=== PATIENT | male | born 1960 | race African-American/Black ===

== ENCOUNTER 2017-02-01 19:20 | Emergency (ER) | payer SELFPAY ==
[2017-02-01 20:25] VITALS: BP 115/72
== END 2017-02-01 21:20 | disposition left against medical advice (07) ==
LOC: ER 19:20
DX: Z53.21 Procedure and treatment not carried out due to patient leaving prior to being seen by health care provider (principal)

== ENCOUNTER → 2017-02-13 | Outpatient (CLI) | payer SELFPAY ==
--- NOTE | 2017-02-13 11:45 | RADIOLOGY REPORT (SQ) ---
EXAM DESCRIPTION: CT CHEST WITH; CT ABDOMEN WITH IV ORAL CONT COMPLETED DATE/TIME: 02/13/2017 11:20 am REASON FOR STUDY: UNINTENTIONAL WEIGHT LOSS, ABN CXR, ELEVATED SED RATE COMPARISON: CT angio chest 12/18/2015, 02/11/2010 CONTRAST TYPE AND DOSE: contrast/concentration: Isovue 370.00 mg/ml; Total Contrast Delivered: 57.0 ml; Total Saline Delivered: 65.0 ml RENAL FUNCTION: Creatinine 0.81 TECHNIQUE: CT scan of the chest performed using helical scanning technique with dynamic intravenous contrast injection. Images reviewed with lung, soft tissue and bone windows. Reconstructed coronal a nd sagittal MPR images reviewed. All images stored on PACS. CT scan of the abdomen performed with intravenous and with oral contrastusing helical scanning techni que with dynamic intravenous contrast injection. Images reviewed with lung, soft tissue and bone win dows. Reconstructed coronal and sagittal MPR images reviewed. Delayed images for evaluation of the urinary system also acquired and evaluated. All images stored on PACS. All CT scanners at this facility use dose modulation, iterative reconstruction, and/or weight based d osing when appropriate to reduce radiation dose to as low as reasonably achievable (ALARA). [facility]: Dose Right [facility]: CareDose [facility]: Dose Right [facility]: Teradose 4D [facility]: [employer] RADIATION DOSE: Up-to-date CT equipment and radiation dose reduction techniques were employed. CTDIv ol: 4.4 - 4.8 mGy. DLP: 473 mGy-cm. . LIMITATIONS: None. FINDINGS: CHEST: LUNGS AND PLEURA: There are multiple enlarged airspaces around the periphery of both lung apices, and along the mediastinal surface of both lungs, stable. Diffuse bronchiectasis, stable. There is bandlike scarring or atelectasis along the right anterior minor fissure which is slightly mo re prominent than on 12/18/2015. There is new airspace disease in the medial left lung base just above the hemidiaphragm. No pleural effusions. No pneumothorax. HILAR AND MEDIASTINAL STRUCTURES: No identified masses or abnormal nodes. HEART AND VASCULAR STRUCTURES: No aneurysm or dissection. No central pulmonary emboli. No pericardi al effusion. Very dense atherosclerotic arterial vascular calcification along the LAD versus coronar y stent, axial image 77 HARDWARE: None. THYROID AND OTHER SOFT TISSUES: No masses. No adenopathy. BONES: No significant finding. OTHER: No other significant finding. ABDOMEN AND PELVIS: LIVER: Normal size. No masses or dilated ducts. SPLEEN: Normal size. No focal lesions. PANCREAS: No masses. No significant calcifications. No adjacent inflammation or peripancreatic fluid collections. Pancreatic duct not dilated. GALLBLADDER: No identified stones by CT criteria. No inflammatory changes to suggest cholecystitis. ADRENAL GLANDS: No significant masses or asymmetry. RIGHT KIDNEY AND URETER: No solid masses. No significant calcification. No hydronephrosis or hydroure ter. LEFT KIDNEY AND URETER: No solid masses. No significant calcification. No hydronephrosis or hydrouret er. AORTA AND VESSELS: No aneurysm. No dissection. Renal arteries, SMA, celiac without stenosis. RETROPERITONEUM: No retroperitoneal adenopathy, hemorrhage or masses. BOWEL AND PERITONEAL CAVITY: No masses or inflammatory changes. No free fluid or peritoneal masses. APPENDIX: Not in the field of view ABDOMINAL WALL: No masses. No hernias. BONES: No significant or acute findings. IMPRESSION: Bulla or blebs with bronchiectasis. Bandlike scarring right middle lobe slightly more prominent than on previous CT chest 12/18/2015. New airspace disease in the left lung base just above the hemidiaphragm No acute findings in the abdomen TECHNICAL DOCUMENTATION: JOB ID: [id number] Quality ID # [id number]: Final reports with documentation of one or more dose reduction techniques (e.g., Au tomated exposure control, adjustment of the mA and/or kV according to patient size, use of iterative reconstruction technique) 2010 [employer] All Rights Reserved
== END ==
LOC: RAD 08:24
PROVIDERS: ATTEND Physician Assistant
DX: R63.4 Abnormal weight loss (principal); J47.9 Bronchiectasis, uncomplicated
CPT/HCPCS: 71260; 74160

== ENCOUNTER 2017-03-13 08:40 | Day surgery (SDC) | payer OTHER ==
[~2017-03-13 08:40] MED LIST: DIPHENHYDRAMINE HCL 50 MG/ML VIAL ONE; EPINEPHRINE INJ 1 MG/10 ML DISP.SYRIN ONE; FENTANYL CITRATE INJ/PF 100 MCG/2 ML AMPUL ONE; FLUMAZENIL INJ 0.5 MG/5 ML VIAL IV ONE; GLUCAGON,HUMAN RECOMB 1 MG INJ ONE; NALOXONE HCL INJ/PF 0.4 MG/1 ML SDV ONE; ONDANSETRON HCL INJ/PF 4 MG/2 ML SDV ONE
[2017-03-13] MEDS: MIDAZOLAM 2 MG/2 ML INJ ONE ×2 (09:40→09:43)
--- NOTE | 2017-03-13 10:08 | Operative Report ---
Operative Report DATE OF SURGERY: 03/13/17 Operative Report: The risks, benefits and alternatives of the procedure including risks of bleeding, perforation requiring surgery are explained to the patient detail and informed consent was obtained. Patient was taken back to the endoscopy suite and placed in the left, lateral decubital position. A rectal examination was done which did not reveal any masses, tears or fissures. Timeout was called. Conscious sedation medications are provided. The scope was then carefully guided all the way to the cecum. The cecum was identified by the usual anatomical landmarks of the ileocecal valve as well as the appendiceal office. Photodocumentation was obtained. The scope was then sequentially pulled back via the various segments of the colon including the ascending colon, hepatic flexure, transverse colon, splenic flexure, descending colon and finding to the rectosigmoid portions of the colon. Retroflexion maneuver is performed. Prep is good. The risks benefits and alternatives of the procedure explained to the patient in detail and informed consent is obtained.A GIF Olympus video scope was inserted into the patient's mouth and hypopharynx ,the esophagus is identified intubated and insufflated, the scope was then advanced through the esophagus stomach and duodenum, retroflexion maneuver is done ,the esophagus stomach and first and second portions of the duodenum examined PREOPERATIVE DIAGNOSIS: Weight loss. Dysphagia. Heme positive stools POSTOPERATIVE DIAGNOSIS: Esophagitis. Gastritis. Duodenitis. Random biopsies obtained on the right side of the colon. Internal hemorrhoids OPERATION: Colonoscopy with biopsy. EGD with biopsy SURGEON: DENILSON JOHN ANESTHESIA: Moderate Sedation - 4 mg of Versed, 50 mcg of fentanyl. Conscious sedation monitoring time 30 minutes. TISSUE REMOVED OR ALTERED: As described above. COMPLICATIONS: None. ESTIMATED BLOOD LOSS: None. INTRAOPERATIVE FINDINGS: As described above. PROCEDURE: Patient tolerated procedure well. No immediate postprocedure complications are noted. Patient discharged in good condition. Discharge date 03/13/2017. Discharge diet: Regular. Discharge activity: Regular. 2-3 week follow-up to discuss findings. Patient is instructed to call the office or proceed to the emergency room should there be any further problems or questions. We will wait on pathology. 7-10 year surveillance colonoscopy.
[2017-03-13 11:00] VITALS: BP 109/66
== END 2017-03-13 11:00 | disposition home or self-care (01) ==
LOC: END 08:40
PROVIDERS: ATTEND Internal Medicine Gastroenterology
PROC: 0DB68ZX Excision of Stomach, Via Natural or Artificial Opening Endoscopic, Diagnostic (ICD-10-PCS; principal; 2017-03-13 09:30)
PROC: 0DBF8ZX Excision of Right Large Intestine, Via Natural or Artificial Opening Endoscopic, Diagnostic (ICD-10-PCS; 2017-03-13 09:30)
DX: K29.70 Gastritis, unspecified, without bleeding (principal); K29.80 Duodenitis without bleeding; K20.9 Esophagitis, unspecified; K64.8 Other hemorrhoids; F17.210 Nicotine dependence, cigarettes, uncomplicated; R63.4 Abnormal weight loss; Z96.649 Presence of unspecified artificial hip joint; Z68.1 Body mass index [BMI] 19.9 or less, adult
CPT/HCPCS: 43239; 45380; 88342 ×2; 88305 ×2; J2250; J3010; J0171; J1200; J1610; J2310; J2405; J3490

== ENCOUNTER 2017-04-17 08:28 | Day surgery (SDC) | payer OTHER ==
[~2017-04-17 08:28] MED LIST changes: -FLUMAZENIL INJ 0.5 MG/5 ML VIAL IV ONE; +FLUMAZENIL INJ 0.5 MG/5 ML VIAL ONE; +MIDAZOLAM 2 MG/2 ML INJ ONE
--- NOTE | 2017-04-17 09:19 | Operative Report ---
Operative Report DATE OF SURGERY: 04/17/17 Operative Report: The risks benefits and alternatives of the procedure explained to the patient in detail and informed consent is obtained.A GIF Olympus video scope was inserted into the patient's mouth and hypopharynx, the esophagus is identified intubated and insufflated, the scope was then advanced through the esophagus stomach and duodenum, retroflexion maneuver is done, the esophagus stomach and first and second portions of the duodenum examined PREOPERATIVE DIAGNOSIS: Follow-up on distal esophageal lesion as noted on previous upper endoscopy POSTOPERATIVE DIAGNOSIS: Distal esophageal lesion has resolved, therefore suspect previous site of bleed. Gastritis improved. Repeat biopsies obtained to rule out Helicobacter pylori OPERATION: EGD with biopsy SURGEON: DENILSON JOHN ANESTHESIA: Moderate Sedation - 2 mg of Versed, 50 mcg of fentanyl. Conscious sedation monitoring time 30 minutes. TISSUE REMOVED OR ALTERED: Gastric specimen obtained to rule out Helicobacter pylori COMPLICATIONS: None. ESTIMATED BLOOD LOSS: None. INTRAOPERATIVE FINDINGS: As noted above. PROCEDURE: Patient tolerated the procedure well. No immediate postprocedure complications are noted. Patient discharged in good condition. Discharge date 04/17/2017. Discharge diet: Regular. Discharge activity: Regular. 2-3 week follow-up to discuss findings. Patient is instructed to call the office or proceed to the emergency room should there be any further problems or questions. We will wait on biopsies.
[2017-04-17 11:10] VITALS: BP 117/75
== END 2017-04-17 10:25 | disposition home or self-care (01) ==
LOC: END 08:28
PROVIDERS: ATTEND Internal Medicine Gastroenterology
PROC: 0DB68ZX Excision of Stomach, Via Natural or Artificial Opening Endoscopic, Diagnostic (ICD-10-PCS; principal; 2017-04-17 09:00)
DX: K29.50 Unspecified chronic gastritis without bleeding (principal); Z09 Encounter for follow-up examination after completed treatment for conditions other than malignant neoplasm; Z87.19 Personal history of other diseases of the digestive system; D50.9 Iron deficiency anemia, unspecified; R63.4 Abnormal weight loss; Z68.23 Body mass index [BMI] 23.0-23.9, adult; F17.210 Nicotine dependence, cigarettes, uncomplicated; J96.10 Chronic respiratory failure, unspecified whether with hypoxia or hypercapnia; F10.20 Alcohol dependence, uncomplicated; K92.1 Melena
CPT/HCPCS: 43239; 88342 ×2; 88305 ×2; J2250; J3010; J0171; J1200; J1610; J2310; J2405; J3490

== ENCOUNTER → 2017-09-26 | Outpatient (CLI) | payer MEDICAID ==
--- NOTE | 2017-09-26 09:38 | RADIOLOGY REPORT (SQ) ---
EXAM DESCRIPTION: CHEST PA/LATERAL COMPLETED DATE/TIME: 09/26/2017 9:01 am REASON FOR STUDY: COPD W (ACUTE) EXACERBATION,ABNORMAL WEIGHT LOSS COMPARISON: 12/18/2015 EXAM PARAMETERS: NUMBER OF VIEWS: two views TECHNIQUE: Digital Frontal and Lateral radiographic views of the chest acquired. RADIATION DOSE: NA LIMITATIONS: none FINDINGS: LUNGS AND PLEURA: There is hyperexpansion. No consolidation or effusions. Perihilar reilly ings are prominent but unchanged. MEDIASTINUM AND HILAR STRUCTURES: No masses or contour abnormalities. HEART AND VASCULAR STRUCTURES: Heart normal size. No evidence for failure. BONES: No acute findings. HARDWARE: None in the chest. OTHER: No other significant finding. IMPRESSION: COPD with chronic interstitial changes most marked in the perihilar distribution. No ac che[place]nak findings. TECHNICAL DOCUMENTATION: JOB ID: [id number] [employer]- All Rights Reserved
== END ==
LOC: OD 08:46
PROVIDERS: ATTEND Family Medicine
DX: J44.1 Chronic obstructive pulmonary disease with (acute) exacerbation (principal); R63.4 Abnormal weight loss
CPT/HCPCS: 71046

== ENCOUNTER 2017-11-18 10:04 | Emergency (ER) | payer MEDICAID, OTHER ==
[2017-11-18] MEDS ORDERED: IPRATROPIUM/ALBUTEROL 0.5-2.5 MG/3 ML AMPUL NEB ONE (10:19)
[2017-11-18] MEDS ORDERED: NORMAL SALINE 1000 ML 1,000 ML IV ONE ×2 (10:19→12:14)
[2017-11-18] MEDS ORDERED: ALBUTEROL SULFATE 0.083% NEB 2.5 MG/3 ML AMPUL NEB ONE (10:19)
[2017-11-18] MEDS ORDERED: ASPIRIN 81 MG TABLET, CHEWABLE PO ONE (10:19)
--- NOTE | 2017-11-18 10:21 | ER Document Report ---
ED Medical Screen (RME) - General Chief Complaint: Flu Symptoms Stated Complaint: BODY ACHES Time Seen by Provider: 11/18/17 10:20 TRAVEL OUTSIDE OF THE [place] IN LAST 30 DAYS: No - HPI Notes: 11/18/17 10:20 Patient with history of COPD coming in for cough feeling unwell chest pain coughing states now his coughing up some sputum. No recent travel no recent incarceration. - Related Data Allergies/Adverse Reactions: Penicillins Allergy (Unknown, Verified 11/18/17 10:06) shrimp Allergy (Verified 11/18/17 10:06) strawberry Allergy (Verified 11/18/17 10:06) Past Medical History - Social History Chew tobacco use (# tins/day): No Frequency of alcohol use: Rare Drug Abuse: None - Past Medical History Cardiac Medical History: Denies: Hx Coronary Artery Disease, Hx Heart Attack, Hx Hypertension Pulmonary Medical History: Reports: Hx Asthma, Hx Bronchitis, Hx COPD, Hx Pneumonia - SEVERAL TIMES Neurological Medical History: Denies: Hx Cerebrovascular Accident, Hx Seizures Renal/ Medical History: Denies: Hx Peritoneal Dialysis Musculoskeltal Medical History: Denies Hx Arthritis Past Surgical History: Reports: Hx Orthopedic Surgery - right hip replacement - Immunizations Immunizations up to date: No Hx Diphtheria, Pertussis, Tetanus Vaccination: Yes Review of Systems - Review of Systems Respiratory: Cough Physical Exam - Vital signs Vitals: Temp Pulse Resp BP Pulse Ox 99.0 F 108 H 17 117/72 94 11/18/17 10:10 11/18/17 10:10 11/18/17 10:10 11/18/17 10:10 11/18/17 10:10 - Respiratory Breath sounds: Wheezing Course - Re-evaluation Re-evalutation: 11/18/17 10:21 I have greeted and performed a rapid initial assessment of this patient. A comprehensive ED assessment and evaluation of the patient, analysis of test results and completion of the medical decision making process will be conducted by additional ED providers. - Vital Signs Vital signs: Temp Pulse Resp BP Pulse Ox 99.0 F 108 H 17 117/72 94 11/18/17 10:10 11/18/17 10:10 11/18/17 10:10 11/18/17 10:10 11/18/17 10:10
[2017-11-18 10:44] LABS: ABSOLUTE LYMPHOCYTES (AUTO) 1.2 10^3/uL (0.5-4.7); ABSOLUTE MONOCYTES (AUTO) 0.3 10^3/uL (0.1-1.4); ABSOLUTE NEUT (AUTO) 1.8 10^3/uL (1.7-8.2); BASOPHILS % (AUTO) 1.4 % (0-2); EOSINOPHILS % (AUTO) 0.2 % (0-6); HEMATOCRIT 41.7 % (37.9-51.0); HEMOGLOBIN 14.1 g/dL (13.5-17.0); LYMPHOCYTES % (AUTO) 37.4 % (13-45); MEAN CORPUSCULAR HEMOGLOBIN 34.2 pg (27.0-33.4); MEAN CORPUSCULAR HGB CONC 33.7 g/dL (32.0-36.0); MEAN CORPUSCULAR VOLUME 101 fl (80-97); MONOCYTES % (AUTO) 8.2 % (3-13); PLATELET COUNT 127 10^3/uL (150-450); RED BLOOD COUNT 4.11 10^6/uL (4.35-5.55); RED CELL DISTRIBUTION WIDTH 12.5 % (11.5-14.0); SEGMENTED NEUTROPHILS % (AUTO) 52.8 % (42-78); TOTAL CELLS COUNTED % (AUTO) 100 %; WHITE BLOOD COUNT 3.3 10^3/uL (4.0-10.5)
[2017-11-18 10:50] LABS: INTERNATIONAL RATION (INR) 1.05; PROTHROMBIN TIME 14.4 SEC (11.4-15.4)
[2017-11-18 11:06] LABS: ALANINE AMINOTRANSFERASE 36 U/L (21-72); ALBUMIN 4.2 g/dL (3.5-5.0); ALKALINE PHOSPHATASE 104 U/L (38-126); ANION GAP 12 (5-19); ASPARTATE AMINO TRANSFERASE 61 U/L (17-59); BILIRUBIN,DIRECT 0.2 mg/dL (0.0-0.4); BILIRUBIN,TOTAL 0.4 mg/dL (0.2-1.3); BLOOD UREA NITROGEN 9 mg/dL (7-20); CALCIUM 9.1 mg/dL (8.4-10.2); CARBON DIOXIDE 26 mmol/L (22-30); CHLORIDE 99 mmol/L (98-107); CREATINE KINASE 160 U/L (55-170); GLUCOSE 100 mg/dL (75-110); POTASSIUM 4.4 mmol/L (3.6-5.0); SODIUM 136.9 mmol/L (137-145); TOTAL PROTEIN 8.3 g/dL (6.3-8.2)
[2017-11-18 11:17] LABS: TROPONIN I 0.015 ng/mL
[2017-11-18 11:18] LABS: CREATINE KINASE MB < 0.22 ng/mL (<4.55)
--- NOTE | 2017-11-18 11:21 | ER Document Report ---
ED General - General Chief Complaint: Flu Symptoms Stated Complaint: BODY ACHES Time Seen by Provider: 11/18/17 10:20 Mode of Arrival: Ambulatory Information source: Patient, Relative Notes: 56-year-old male with a history of COPD, asthma, bronchitis, tobacco use presents with complaint of fever, chills, cough and hemoptysis. States he has had a constant productive cough for 5 days. He states he has had 2 episodes of coughing up blood. He has not measured his temperature but states that he feels chilled. He is complaining of myalgias. Patient has tried over-the- counter cough medicine without relief. TRAVEL OUTSIDE OF THE [place] IN LAST 30 DAYS: No - HPI Onset: Last week Onset/Duration: Gradual Quality of pain: Achy Associated symptoms: Body/muscle aches, Productive cough, Fever, Shortness of breath. denies: Chest pain, Nausea, Vomiting Exacerbated by: Coughing Relieved by: Denies - Related Data Allergies/Adverse Reactions: Penicillins Allergy (Unknown, Verified 11/18/17 10:06) shrimp Allergy (Verified 11/18/17 10:06) strawberry Allergy (Verified 11/18/17 10:06) Past Medical History - General Information source: Patient - Social History Smoking Status: Current Every Day Smoker Chew tobacco use (# tins/day): No Frequency of alcohol use: Rare Drug Abuse: None Lives with: Family Family History: Reviewed & Not Pertinent Patient has suicidal ideation: No Patient has homicidal ideation: No - Past Medical History Cardiac Medical History: Denies: Hx Coronary Artery Disease, Hx Heart Attack, Hx Hypertension Pulmonary Medical History: Reports: Hx Asthma, Hx Bronchitis, Hx COPD, Hx Pneumonia - SEVERAL TIMES Neurological Medical History: Denies: Hx Cerebrovascular Accident, Hx Seizures Renal/ Medical History: Denies: Hx Peritoneal Dialysis Musculoskeltal Medical History: Denies Hx Arthritis Past Surgical History: Reports: Hx Orthopedic Surgery - right hip replacement - Immunizations Immunizations up to date: No Hx Diphtheria, Pertussis, Tetanus Vaccination: Yes Review of Systems - Review of Systems Constitutional: Fever - Subjective, Malaise EENT: denies: Blurred vision Cardiovascular: denies: Chest pain, Palpitations Respiratory: Cough, Short of breath, Wheezing Gastrointestinal: denies: Abdominal pain Genitourinary: denies: Dysuria Musculoskeletal: denies: Back pain Skin: No symptoms reported Hematologic/Lymphatic: No symptoms reported Neurological/Psychological: denies: Confusion, Weakness Physical Exam - Vital signs Vitals: Temp Pulse Resp BP Pulse Ox 99.0 F 108 H 17 117/72 94 11/18/17 10:10 11/18/17 10:10 11/18/17 10:10 11/18/17 10:10 11/18/17 10:10 Interpretation: Normal, Tachycardic. No: Hypoxic, Febrile - General General appearance: Appears well, Alert In distress: None - HEENT Head: Normocephalic, Atraumatic Eyes: Normal Extraocular movements intact: Yes Pupils: PERRL Sinus: Normal Nasal: Normal Mouth/Lips: Normal Mucous membranes: Normal Pharynx: Normal. No: Blood in hypopharynx Neck: Normal - Respiratory Respiratory status: No respiratory distress Chest status: Nontender Breath sounds: Decreased air movement, Productive cough, Wheezing Chest palpation: Normal - Cardiovascular Rhythm: Regular, Tachycardia Heart sounds: Normal auscultation Murmur: No Pulses: Normal: Radial, Dorsalis pedis Normal capillary refill: Yes - Abdominal Inspection: Normal Distension: No distension Bowel sounds: Normal Tenderness: Nontender Organomegaly: No organomegaly - Back Back: Normal, Nontender. No: CVA tenderness - Extremities General upper extremity: Normal inspection, Nontender, Normal color, Normal ROM , Normal temperature. No: Edema General lower extremity: Normal inspection, Nontender, Normal color, Normal ROM , Normal temperature, Normal weight bearing. No: Edema, Grace's sign Calf: Nontender. 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, Dorsiflexion, Plantar flexion Sensory: Normal - Psychological Associated symptoms: Normal affect, Normal mood - Skin Skin Temperature: Warm Skin Moisture: Dry Skin Color: Normal Course - Re-evaluation Re-evalutation: Laboratory 11/18/17 11/18/17 11/18/17 10:30 10:30 10:30 WBC 3.3 L RBC 4.11 L Hgb 14.1 Hct 41.7 MCV 101 H MCH 34.2 H MCHC 33.7 RDW 12.5 Plt Count 127 L Seg Neutrophils % 52.8 Lymphocytes % 37.4 Monocytes % 8.2 Eosinophils % 0.2 Basophils % 1.4 Absolute Neutrophils 1.8 Absolute Lymphocytes 1.2 Absolute Monocytes 0.3 Absolute Eosinophils 0.0 Absolute Basophils 0.0 PT 14.4 INR 1.05 APTT 40.8 H Sodium 136.9 L Potassium 4.4 Chloride 99 Carbon Dioxide 26 Anion Gap 12 BUN 9 Creatinine 0.87 Est GFR ( Amer) > 60 Est GFR (Non-Af Amer) > 60 Glucose 100 Calcium 9.1 Magnesium 1.5 L Total Bilirubin 0.4 Direct Bilirubin 0.2 Neonat Total Bilirubin Not Reportable Neonat Direct Bilirubin Not Reportable Neonat Indirect Bili Not Reportable AST 61 H ALT 36 Alkaline Phosphatase 104 Creatine Kinase 160 CK-MB (CK-2) Troponin I Total Protein 8.3 H Albumin 4.2 11/18/17 11/18/17 10:30 10:30 WBC RBC Hgb Hct MCV MCH MCHC RDW Plt Count Seg Neutrophils % Lymphocytes % Monocytes % Eosinophils % Basophils % Absolute Neutrophils Absolute Lymphocytes Absolute Monocytes Absolute Eosinophils Absolute Basophils PT Cancelled INR Cancelled APTT Cancelled Sodium Potassium Chloride Carbon Dioxide Anion Gap BUN Creatinine Est GFR ( Amer) Est GFR (Non-Af Amer) Glucose Calcium Magnesium Total Bilirubin Direct Bilirubin Neonat Total Bilirubin Neonat Direct Bilirubin Neonat Indirect Bili AST ALT Alkaline Phosphatase Creatine Kinase CK-MB (CK-2) < 0.22 Troponin I 0.015 Total Protein Albumin Chest X-Ray 11/18/17 10:19 IMPRESSION: Obstructive lung disease. No acute findings 11/18/17 13:36 on re-evaluation patient states he is feeling better. Wheezing has resolved. Heart rate has improved. He was ambulated on pulse ox and maintain 96%. Patient and family are comfortable with discharge home. I spoke to patient at length regarding smoking cessation. 11/20/17 03:17 57-year-old male with a history of COPD who continues to use tobacco presents with complaint of cough, fever, shortness of breath and hemoptysis. Patient states that he is experienced 2 episodes of coughing up blood. Describes blood tinged sputum. He has not had any episodes today, or during his ED course. He describes myalgias and subjective fever that are not relieved with over-the- counter cough medication. He denies any history of HIV, incarceration, TB. Upon exam patient has diffuse wheezing which resolved after breathing treatments. He has no evidence of DVT. Heart rate which is initially tachycardic also improved prior to discharge. Chest x-ray does not show any obvious pneumonia but patient does have a history of COPD and reports increased sputum production so he was placed on doxycycline. during his ED course he received IV fluids, albuterol, Solu-Medrol, doxycycline. CBC without leukocytosis or anemia. CMP shows no electrolyte abnormalities. Cardiac enzymes are within normal limits. He was provided an albuterol MDI. Smoking cessation was strongly advised. Did discuss observation with the patient to assure that there is no further hemoptysis but patient states he is feeling better and is requesting discharge home. Family is at the bedside and are comfortable with discharge home. - Vital Signs Vital signs: Temp Pulse Resp BP Pulse Ox 99.0 F 108 H 20 134/70 H 96 11/18/17 10:10 11/18/17 10:10 11/18/17 13:00 11/18/17 13:00 11/18/17 13:00 - Laboratory Result Diagrams: 11/18/17 10:30 11/18/17 10:30 Laboratory results interpreted by me: 11/18/17 11/18/17 11/18/17 10:30 10:30 10:30 WBC 3.3 L RBC 4.11 L MCV 101 H MCH 34.2 H Plt Count 127 L APTT 40.8 H Sodium 136.9 L Magnesium 1.5 L AST 61 H Total Protein 8.3 H Discharge - Discharge Clinical Impression: Bronchitis, COPD exacerbation, Encounter for smoking cessation counseling, Tobacco abuse Condition: Good Disposition: HOME, SELF-CARE Instructions: Bronchitis ([facility]), Chronic Obstructive Lung Disease ([facility]), Viral Syndrome ([facility]) Prescriptions: Doxycycline Hyclate 100 mg PO BID #14 capsule Ibuprofen [Motrin 600 Mg Tablet] 600 mg PO TID #15 tablet Prednisone [Deltasone 20 mg Tablet] 3 tab PO DAILY 5 Days #15 tablet Referrals: HAYDER GARY MD [ACTIVE STAFF] - Follow up in 3-5 days
--- NOTE | 2017-11-18 11:25 | RADIOLOGY REPORT (SQ) ---
EXAM DESCRIPTION: CHEST 2 VIEWS COMPLETED DATE/TIME: 11/18/2017 10:56 am REASON FOR STUDY: sob cough COMPARISON: Chest films 07/17/2015, 12/18/2015, 09/26/2017 CT angio chest 12/18/2015, 02/13/2017 EXAM PARAMETERS: NUMBER OF VIEWS: two views TECHNIQUE: Digital Frontal and Lateral radiographic views of the chest acquired. RADIATION DOSE: NA LIMITATIONS: none FINDINGS: LUNGS AND PLEURA: Upper lobes are hyperinflated and hyperlucent from obstructive disease. Mid and lower lungs are free of focal infiltrates. No pneumothorax. No pleural effusion. MEDIASTINUM AND HILAR STRUCTURES: No masses or contour abnormalities. HEART AND VASCULAR STRUCTURES: Heart normal size. No evidence for failure. BONES: No acute findings. HARDWARE: None in the chest. OTHER: No other significant finding. IMPRESSION: Obstructive lung disease. No acute findings TECHNICAL DOCUMENTATION: JOB ID: [id number] [employer]- All Rights Reserved Reading location - IP/workstation name: [email or web address]
[2017-11-18 11:31] LABS: PARTIAL THROMBOPLASTIN TIME 40.8 SEC (23.5-35.8)
[2017-11-18] MEDS ORDERED: DOXYCYCLINE HYCLATE 100 MG TABLET PO ONE (11:42)
[2017-11-18] MEDS ORDERED: ACETAMINOPHEN 325 MG TABLET PO ONE (11:42)
[2017-11-18] MEDS ORDERED: PREDNISONE 20 MG TABLET PO ONE (11:43)
[2017-11-18 13:36] VITALS: BP 134/70
[2017-11-18] MEDS ORDERED: ALBUTEROL SULFATE HFA (90 MCG/PUFF) 8 GM MDI (1 MDI/ER DISP) IH SCH (13:45)
--- NOTE | 2017-11-18 19:21 | EKG REPORT ---
SEVERITY:- ABNORMAL ECG - SINUS RHYTHM PROBABLE LEFT ATRIAL ABNORMALITY PROBABLE LEFT VENTRICULAR HYPERTROPHY : Confirmed by: Chente Mccollum 18-Nov-2017 19:19:38
== END 2017-11-18 13:50 | disposition home or self-care (01) ==
LOC: ER 10:04
DX: J44.1 Chronic obstructive pulmonary disease with (acute) exacerbation (principal); J40 Bronchitis, not specified as acute or chronic; R04.2 Hemoptysis; R53.81 Other malaise; R06.02 Shortness of breath; M79.1 Myalgia; F17.200 Nicotine dependence, unspecified, uncomplicated; R00.0 Tachycardia, unspecified; Z87.01 Personal history of pneumonia (recurrent)
CPT/HCPCS: 93005; 94640; 99284; 96360; 36415; 82553; 82550; 83735; 85025; 85610; 85730; 80053; 84484; 71046; 93010; J3490 ×3; J7512; J7030; J7620

== ENCOUNTER 2017-12-31 17:19 | Emergency (ER) | payer MEDICAID, OTHER ==
[2017-12-31] MEDS ORDERED: BENZONATATE 100 MG CAPSULE PO ONE (18:14)
[2017-12-31] MEDS ORDERED: IPRATROPIUM/ALBUTEROL 0.5-2.5 MG/3 ML AMPUL NEB ONE (18:17)
--- NOTE | 2017-12-31 18:17 | ER Document Report ---
ED Medical Screen (RME) - General Chief Complaint: Chest Pain Stated Complaint: SHORTNESS OF BREATH Time Seen by Provider: 12/31/17 18:09 Notes: RAPID MEDICAL EVALUATION DISCLOSURE I have seen this patient as part of a Rapid Medical Evaluation and, if applicable, placed any initially appropriate orders. The patient will be seen and fully evaluated, including a full history and physical exam, by a provider ( in Main ED or Fast Track) when a room becomes available. 57-year-old female here with complaints of right-sided chest pain shortness of breath and cough productive yellow sputum ongoing for the past 2 weeks. He has had some chills and sweats but no fevers. He has a prior history of pneumonia and states this feels similar. EXAM Left lung CTA Unilateral right basilar mild rhonchi with inspiratory/expiratory wheeze No chest wall TTP no abdominal TTP TRAVEL OUTSIDE OF THE [place] IN LAST 30 DAYS: No - Related Data Allergies/Adverse Reactions: Penicillins Allergy (Unknown, Verified 12/31/17 18:04) shrimp Allergy (Verified 12/31/17 18:04) strawberry Allergy (Verified 12/31/17 18:04) Past Medical History - Past Medical History Cardiac Medical History: Denies: Hx Coronary Artery Disease, Hx Heart Attack, Hx Hypertension Pulmonary Medical History: Reports: Hx Asthma, Hx Bronchitis, Hx COPD, Hx Pneumonia - SEVERAL TIMES Neurological Medical History: Denies: Hx Cerebrovascular Accident, Hx Seizures Renal/ Medical History: Denies: Hx Peritoneal Dialysis Musculoskeltal Medical History: Denies Hx Arthritis Past Surgical History: Reports: Hx Orthopedic Surgery - right hip replacement - Immunizations Immunizations up to date: No Hx Diphtheria, Pertussis, Tetanus Vaccination: Yes Physical Exam - Vital signs Vitals: Temp Pulse Resp BP Pulse Ox 98.2 F 100 18 114/74 95 12/31/17 17:24 12/31/17 17:24 12/31/17 17:24 12/31/17 17:24 12/31/17 17:24 Course - Vital Signs Vital signs: Temp Pulse Resp BP Pulse Ox 98.2 F 100 18 114/74 95 12/31/17 17:24 12/31/17 17:24 12/31/17 17:24 12/31/17 17:24 12/31/17 17:24
[2017-12-31 18:42] LABS: ABSOLUTE EOSINOPHILS # (AUTO) 0.3 10^3/uL (0.0-0.6); ABSOLUTE MONOCYTES (AUTO) 0.9 10^3/uL (0.1-1.4); ABSOLUTE NEUT (AUTO) 1.9 10^3/uL (1.7-8.2); BASOPHILS % (AUTO) 0.2 % (0-2); EOSINOPHILS % (AUTO) 5.2 % (0-6); HEMATOCRIT 34.6 % (37.9-51.0); HEMOGLOBIN 11.6 g/dL (13.5-17.0); LYMPHOCYTES % (AUTO) 39.4 % (13-45); MEAN CORPUSCULAR HEMOGLOBIN 33.3 pg (27.0-33.4); MEAN CORPUSCULAR HGB CONC 33.7 g/dL (32.0-36.0); MEAN CORPUSCULAR VOLUME 99 fl (80-97); MONOCYTES % (AUTO) 18.1 % (3-13); PLATELET COUNT 364 10^3/uL (150-450); RED CELL DISTRIBUTION WIDTH 13.6 % (11.5-14.0); SEGMENTED NEUTROPHILS % (AUTO) 37.1 % (42-78); TOTAL CELLS COUNTED % (AUTO) 100 %; WHITE BLOOD COUNT 5.1 10^3/uL (4.0-10.5)
--- NOTE | 2017-12-31 19:06 | RADIOLOGY REPORT (SQ) ---
EXAM DESCRIPTION: CHEST 2 VIEWS COMPLETED DATE/TIME: 12/31/2017 6:47 pm REASON FOR STUDY: R basilar rhonchi/wheezes; pneumonia? COMPARISON: 11/18/2017 EXAM PARAMETERS: NUMBER OF VIEWS: two views TECHNIQUE: Digital Frontal and Lateral radiographic views of the chest acquired. RADIATION DOSE: NA LIMITATIONS: none FINDINGS: LUNGS AND PLEURA: Patchy airspace densities are identified in the right lower lung field w hich has the appearance of an acute process superimposed on chronic underlying changes. Remaining gala ng morales are clear. No pleural effusions are identified. MEDIASTINUM AND HILAR STRUCTURES: No masses or contour abnormalities. HEART AND VASCULAR STRUCTURES: Heart normal size. No evidence for failure. BONES: No acute findings. HARDWARE: None in the chest. OTHER: No other significant finding. IMPRESSION: Patchy airspace densities in the right lower lung field which has the appearance of an a cute process superimposed on chronic underlying changes. Remaining lung morales are clear. Other fin dings as noted above TECHNICAL DOCUMENTATION: JOB ID: [id number] [employer]- All Rights Reserved Reading location - IP/workstation name: [email or web address]
[2017-12-31 19:09] LABS: ALANINE AMINOTRANSFERASE 14 U/L (21-72); ALBUMIN 3.4 g/dL (3.5-5.0); ALKALINE PHOSPHATASE 136 U/L (38-126); ANION GAP 15 (5-19); ASPARTATE AMINO TRANSFERASE 30 U/L (17-59); BILIRUBIN,DIRECT 0.3 mg/dL (0.0-0.4); BILIRUBIN,TOTAL 0.3 mg/dL (0.2-1.3); BLOOD UREA NITROGEN 4 mg/dL (7-20); CALCIUM 9.1 mg/dL (8.4-10.2); CARBON DIOXIDE 24 mmol/L (22-30); CHLORIDE 99 mmol/L (98-107); GLUCOSE 80 mg/dL (75-110); POTASSIUM 4.6 mmol/L (3.6-5.0); SODIUM 138.4 mmol/L (137-145); TOTAL PROTEIN 8.3 g/dL (6.3-8.2)
--- NOTE | 2017-12-31 19:24 | ER Document Report ---
ED General - General Chief Complaint: Chest Pain Stated Complaint: SHORTNESS OF BREATH Time Seen by Provider: 12/31/17 18:09 TRAVEL OUTSIDE OF THE [place] IN LAST 30 DAYS: No - HPI Notes: Patient is a 57-year-old male no significant past medical history who presents to the ED complaining of nasal congestion/discharge, dry semi-productive cough, intermittent shortness of breath 2 weeks. Patient is a smoker but denies any IV drug use. He has been using [id number] meds for symptoms with minimal relief. Patient states that he is still ambulatory, but sometimes gets shortness of breath with it. He has not had any leg pains. Denies any hormone use, prolonged immobilization, recent trauma/surgery, previous DVT/PE. Patient states that he has had a history otherwise of pneumonia. Denies any other significant cardiopulmonary medical history. Denies any headache, fever, neck pain, sore throat, chest pain, palpitations, syncope, wheeze, dyspnea, abdominal pain, nausea/vomiting/diarrhea, urinary retention, dysuria, hematuria , or rash. - Related Data Allergies/Adverse Reactions: Penicillins Allergy (Unknown, Verified 12/31/17 18:04) shrimp Allergy (Verified 12/31/17 18:04) strawberry Allergy (Verified 12/31/17 18:04) Past Medical History - Social History Smoking Status: Current Every Day Smoker Chew tobacco use (# tins/day): No Family History: Reviewed & Not Pertinent Patient has suicidal ideation: No Patient has homicidal ideation: No - Past Medical History Cardiac Medical History: Denies: Hx Coronary Artery Disease, Hx Heart Attack, Hx Hypertension Pulmonary Medical History: Reports: Hx Asthma, Hx Bronchitis, Hx COPD, Hx Pneumonia - SEVERAL TIMES Neurological Medical History: Denies: Hx Cerebrovascular Accident, Hx Seizures Renal/ Medical History: Denies: Hx Peritoneal Dialysis Musculoskeltal Medical History: Denies Hx Arthritis Past Surgical History: Reports: Hx Orthopedic Surgery - right hip replacement - Immunizations Immunizations up to date: No Hx Diphtheria, Pertussis, Tetanus Vaccination: Yes Review of Systems - Review of Systems -: Yes All other systems reviewed and negative Physical Exam - Vital signs Vitals: Temp Pulse Resp BP Pulse Ox 98.2 F 100 18 114/74 95 12/31/17 17:24 12/31/17 17:24 12/31/17 17:24 12/31/17 17:24 12/31/17 17:24 - Notes Notes: PHYSICAL EXAMINATION: GENERAL: Well-appearing, well-nourished and in no acute distress. HEAD: Atraumatic, normocephalic. EYES: Pupils equal round and reactive to light, extraocular movements intact, sclera anicteric, conjunctiva are normal. ENT: Nares patent and without discharge. oropharynx clear without exudates. No tonsilar hypertrophy or erythema. Moist mucous membranes. No sinus tenderness. NECK: Normal range of motion, supple without lymphadenopathy LUNGS: + crackle RLL. No wheezing, retractions, or distress. HEART: Regular rate and rhythm without murmurs, rubs, gallops. ABDOMEN: Soft, nontender, nondistended abdomen. No guarding, no rebound. No masses appreciated. Normal bowel sounds present. No CVA tenderness bilaterally. Musculoskeletal: FROM to passive/active. Strength 5+/5. Grace neg b/l. Extremities: No cyanosis, clubbing, or edema b/l. Peripheral pulses 2+. Capillary refill less than 3 seconds. NEUROLOGICAL: Normal speech, normal gait. PSYCH: Normal mood, normal affect. SKIN: Warm, Dry, normal turgor, no rashes or lesions noted. Course - Re-evaluation Re-evalutation: 12/31/17 19:26 Patient is an afebrile, well-hydrated, 57-year-old male who presents to the ED with a right lower lobe pneumonia. Vitals are acceptable. PE is otherwise unremarkable. CBC, CMP, cardiac enzyme/ekg otherwise unremarkable. See chest x -ray result. Patient had a breathing treatment today. Rales are noted in the right lower lobe on exam. He otherwise has no significant tachycardia, tachypnea, or hypoxia. He is tolerating p.o. without any difficulties. Wells score of 0. Low suspicion at this time for any ACS, PE, pneumothorax, pericarditis, dissection, respiratory compromise, severe dehydration, sepsis, meningitis, or other systemic emergent condition at this time. Patient is aware that his condition can change from initial presentation and he needs to monitor symptoms closely and seek medical attention for any acute changes. I will send him home with prescription for Levaquin. Recommend conservative measures for symptoms. Recheck with your PCM in 3-5 days. Return to the ED with any worsening/concerning symptoms otherwise as reviewed in discharge. Patient is in agreement. - Vital Signs Vital signs: Temp Pulse Resp BP Pulse Ox 98.2 F 100 9 L 104/84 96 12/31/17 17:24 12/31/17 17:24 12/31/17 19:02 12/31/17 19:02 12/31/17 19:02 - Laboratory Result Diagrams: 12/31/17 18:24 12/31/17 18:24 Laboratory results interpreted by me: 12/31/17 12/31/17 18:24 18:24 RBC 3.50 L Hgb 11.6 L Hct 34.6 L MCV 99 H Seg Neutrophils % 37.1 L Monocytes % 18.1 H BUN 4 L ALT 14 L Alkaline Phosphatase 136 H Total Protein 8.3 H Albumin 3.4 L Discharge - Discharge Clinical Impression: Right lower lobe pneumonia Qualifiers: Pneumonia type: due to unspecified organism Qualified Code(s): J18.1 - Lobar pneumonia, unspecified organism Condition: Stable Disposition: HOME, SELF-CARE Instructions: Pneumonia ([facility]) Additional Instructions: Maintain adequate fluid intake Take meds as directed tylenol/ibuprofen as needed over the counter cold medication as needed for symptoms Humidified air may help Wash your hands regularly Wear a mask when coughing F/u: with your PCM in 3-5 days for a recheck Return to the ED with any fever, worsening pain, chest pain, palpitations, syncope, worsening BRITO, neck pain/stiffness, shortness of breath, wheezing, drooling, trouble swallowing/breathing, abdominal pain, n/v/d, rash, or worsening/concerning symptoms otherwise. Prescriptions: Albuterol Sulfate [Proair HFA Inhalation Aerosol 8.5 gm MDI] 2 puff IH Q4H PRN # 1 mdi PRN Reason: Levofloxacin [Levaquin 750 mg Tablet] 750 mg PO DAILY #5 tablet Forms: Smoking Cessation Education Referrals: NONA DAVIS MD [Primary Care Provider] - Follow up in 3-5 days
[2017-12-31 20:09] VITALS: BP 132/85
--- NOTE | 2017-12-31 21:16 | EKG REPORT ---
SEVERITY:- ABNORMAL ECG - SINUS RHYTHM PROBABLE LEFT VENTRICULAR HYPERTROPHY BORDERLINE PROLONGED QT INTERVAL : Confirmed by: Chente Mccollum 31-Dec-2017 21:15:18
== END 2017-12-31 20:09 | disposition home or self-care (01) ==
LOC: ER 17:19
DX: J18.1 Lobar pneumonia, unspecified organism (principal); R07.9 Chest pain, unspecified; R06.02 Shortness of breath; R09.81 Nasal congestion; F17.200 Nicotine dependence, unspecified, uncomplicated; Z88.0 Allergy status to penicillin; Z91.013 Allergy to seafood
CPT/HCPCS: 93005; 94640; 99285; 36415; 87040; 85025; 80053; 84484; 71046; 93010; J3490; J7620

== ENCOUNTER 2018-09-26 15:08 | Emergency (ER) | payer MEDICAID, OTHER ==
[2018-09-26 16:01] VITALS: BP 128/73
--- NOTE | 2018-09-27 20:10 | EKG REPORT ---
SEVERITY:- ABNORMAL ECG - SINUS TACHYCARDIA PROBABLE LEFT ATRIAL ABNORMALITY LEFT VENTRICULAR HYPERTROPHY : Confirmed by: Chente Mccollum 27-Sep-2018 20:10:03
== END 2018-09-26 20:00 | disposition left against medical advice (07) ==
LOC: ER 15:08
DX: Z53.21 Procedure and treatment not carried out due to patient leaving prior to being seen by health care provider (principal)
CPT/HCPCS: 93005; 93010

== ENCOUNTER → 2018-10-02 | Outpatient (CLI) | payer MEDICAID, OTHER ==
[2018-10-02 15:01] LABS: A TYPE INFLUENZA AG NEGATIVE (NEGATIVE); B INFLUENZA AG NEGATIVE (NEGATIVE)
--- NOTE | 2018-10-02 16:07 | RADIOLOGY REPORT (SQ) ---
EXAM DESCRIPTION: CHEST PA/LATERAL COMPLETED DATE/TIME: 10/02/2018 2:41 pm REASON FOR STUDY: ACUTE BRONCHITIS, COPD J20.9, J44.1 COMPARISON: 12/31/2017 EXAM PARAMETERS: NUMBER OF VIEWS: two views TECHNIQUE: Digital Frontal and Lateral radiographic views of the chest acquired. RADIATION DOSE: NA LIMITATIONS: none FINDINGS: LUNGS AND PLEURA: Findings of COPD. Chronic mild prominence of the interstitial markings particularly in the perihilar regions and mild peribronchial cuffing. No acute pulmonary consolidat ion. Stable slight biapical pleural thickening. No pneumothorax or pleural effusion. MEDIASTINUM AND HILAR STRUCTURES: No masses or contour abnormalities. HEART AND VASCULAR STRUCTURES: Heart normal size. No evidence for failure. BONES: No acute findings. HARDWARE: None in the chest. OTHER: No other significant finding. IMPRESSION: 1. Findings of COPD and chronic mild prominence of the interstitial markings. No acute findings. TECHNICAL DOCUMENTATION: JOB ID: [id number] [email or web address]- All Rights Reserved Reading location - IP/workstation name: [email or web address]
== END ==
LOC: OD 14:20
PROVIDERS: ATTEND Family Medicine Geriatric Medicine
DX: J20.9 Acute bronchitis, unspecified (principal); J44.1 Chronic obstructive pulmonary disease with (acute) exacerbation; Z79.899 Other long term (current) drug therapy
CPT/HCPCS: 71046; 87804

== ENCOUNTER → 2018-11-06 | Outpatient (CLI) | payer MEDICAID ==
[2018-11-06 10:41] LABS: ALANINE AMINOTRANSFERASE 94 U/L (21-72); ALBUMIN 3.4 g/dL (3.5-5.0); ALKALINE PHOSPHATASE 193 U/L (38-126); ANION GAP 13 (5-19); ASPARTATE AMINO TRANSFERASE 300 U/L (17-59); BILIRUBIN,TOTAL 2.5 mg/dL (0.2-1.3); BLOOD UREA NITROGEN 10 mg/dL (7-20); CALCIUM 9.1 mg/dL (8.4-10.2); CARBON DIOXIDE 22 mmol/L (22-30); CHLORIDE 103 mmol/L (98-107); CHOLESTEROL 136.55 mg/dL (0-200); GLUCOSE 86 mg/dL (75-110); POTASSIUM 4.4 mmol/L (3.6-5.0); SODIUM 138.2 mmol/L (137-145); TOTAL PROTEIN 8.5 g/dL (6.3-8.2); TRIGLYCERIDES 317 mg/dL (<150)
[2018-11-06 10:53] LABS: DIRECT LDL 48 mg/dL (<100)
[2018-11-06 10:55] LABS: VLDL CHOLESTEROL 63.4 mg/dL (10-31)
== END ==
LOC: OD 08:21
PROVIDERS: ATTEND Internal Medicine
DX: J44.9 Chronic obstructive pulmonary disease, unspecified (principal); H26.9 Unspecified cataract; Z79.899 Other long term (current) drug therapy
CPT/HCPCS: 36415; 80053; 80061; 84443

== ENCOUNTER → 2018-11-19 | Outpatient (CLI) | payer MEDICAID ==
[2018-11-19 09:58] LABS: ALANINE AMINOTRANSFERASE 65 U/L (21-72); ALBUMIN 3.4 g/dL (3.5-5.0); ALKALINE PHOSPHATASE 218 U/L (38-126); ASPARTATE AMINO TRANSFERASE 183 U/L (17-59); BILIRUBIN,DIRECT 1.8 mg/dL (0.0-0.4); BILIRUBIN,TOTAL 2.3 mg/dL (0.2-1.3); TOTAL PROTEIN 8.1 g/dL (6.3-8.2)
== END ==
LOC: OD 08:33
PROVIDERS: ATTEND Family Medicine Geriatric Medicine
DX: R94.5 Abnormal results of liver function studies (principal)
CPT/HCPCS: 36415; 80076

== ENCOUNTER → 2018-12-31 | Outpatient (CLI) | payer MEDICAID ==
[~2018-12-31] MED LIST changes: +ALBUTEROL SULFATE 0.083% NEB 2.5 MG/3 ML AMPUL NEB ONE; -DIPHENHYDRAMINE HCL 50 MG/ML VIAL ONE; -EPINEPHRINE INJ 1 MG/10 ML DISP.SYRIN ONE; -FENTANYL CITRATE INJ/PF 100 MCG/2 ML AMPUL ONE; -FLUMAZENIL INJ 0.5 MG/5 ML VIAL ONE; -GLUCAGON,HUMAN RECOMB 1 MG INJ ONE; -MIDAZOLAM 2 MG/2 ML INJ ONE; -NALOXONE HCL INJ/PF 0.4 MG/1 ML SDV ONE; -ONDANSETRON HCL INJ/PF 4 MG/2 ML SDV ONE
--- NOTE | 2019-01-01 11:48 | Pulmonary Function Test ---
Pulmonary Function Test Date of Procedure:: 01/01/19 INDICATION:: Dyspnea Referring Provider: Machine Pan Greaser: Tierney Taylor INTEGRATION AIDE, CONVENIENCE STORE CLERK - Report Spirometry: Spirometry: pre-FVC: 3.68 L 102% post-FVC 3.94 L 109%] pre-FEV:1 2.12 L 73% post-FEV1; 2.31 L 80% pre-FEV1/FVC % 58 post-FEV1/FVC% 59 predicted 81 tpb-NQM20-89% 0.85 L 28% cvdk-PEK45-24% 0.97 L 32% Lung Volume: Total lung capacity: 7.21 L 128% Vital capacity: 3.68 L 102% Inspiratory capacity: 1.98 L FRC N2: 5.24 L 149% ERV: 0.61 L RV: 3.54 L 169% RV/TLC %: 49 predicted 37 Diffusion Capactity: Diffusion Capacity: DLCO; 20.3 111% DLCO/VA; 4.29 110% Impression: Moderate obstructive ventilatory defect with good response to bronchodilator therapy. No restrictive ventilatory defect. Moderate hyperinflation and air trapping. Normal diffusion capacity.
== END ==
LOC: RT 08:26
PROVIDERS: ATTEND Family Medicine Geriatric Medicine
DX: J44.9 Chronic obstructive pulmonary disease, unspecified (principal)
CPT/HCPCS: 94060; 94727; 94729; 94760

== ENCOUNTER → 2019-01-14 | Outpatient (CLI) | payer MEDICAID ==
--- NOTE | 2019-01-14 12:54 | RADIOLOGY REPORT (SQ) ---
EXAM DESCRIPTION: U/S ABDOMEN LIMITED W/O DOP COMPLETED DATE/TIME: 01/14/2019 12:17 pm REASON FOR STUDY: ABN RESULTS OF LIVER FUNCTION STUDIES R94.5 ABNORMAL RESULTS OF LIVER FUNCTION ST UDIES COMPARISON: None. TECHNIQUE: Dynamic and static grayscale images acquired of the abdomen and recorded on PACS. Additio nal selected color Doppler and spectral images recorded. LIMITATIONS: None. FINDINGS: PANCREAS: No masses. Visualized pancreatic duct normal caliber. LIVER: No masses. Echotexture normal. LIVER VASCULATURE: Normal directional flow of the main portal vein and hepatic veins. GALLBLADDER: No stones. Normal wall thickness. No pericholecystic fluid. ULTRASOUND-DETECTED MOSQUERA'S SIGN: Negative. INTRAHEPATIC DUCTS AND COMMON DUCT: CBD and intrahepatic ducts normal caliber. No filling defects. INFERIOR VENA CAVA: Normal flow. AORTA: No aneurysm. RIGHT KIDNEY: Normal size measuring 11.6 cm. Normal echogenicity. No solid or suspicious masses. No hydronephrosis. No calcifications. PERITONEAL AND RIGHT PLEURAL SPACE: No ascites or effusions. OTHER: No other significant findings. IMPRESSION: Unremarkable right upper quadrant ultrasound. TECHNICAL DOCUMENTATION: JOB ID: [id number] [employer]- All Rights Reserved Reading location - IP/workstation name: [email or web address]
== END ==
LOC: RAD 11:07
PROVIDERS: ATTEND Family Medicine Geriatric Medicine
DX: R94.5 Abnormal results of liver function studies (principal); F10.10 Alcohol abuse, uncomplicated
CPT/HCPCS: 76705

== ENCOUNTER → 2019-03-24 | Outpatient (CLI) | payer MEDICAID ==
[2019-03-24 08:09] LABS: ABSOLUTE BASOPHILS # (AUTO) 0.1 10^3/uL (0.0-0.2); ABSOLUTE EOSINOPHILS # (AUTO) 0.1 10^3/uL (0.0-0.6); ABSOLUTE LYMPHOCYTES (AUTO) 2.1 10^3/uL (0.5-4.7); ABSOLUTE MONOCYTES (AUTO) 0.4 10^3/uL (0.1-1.4); ABSOLUTE NEUT (AUTO) 1.7 10^3/uL (1.7-8.2); BASOPHILS % (AUTO) 1.8 % (0-2); EOSINOPHILS % (AUTO) 2.4 % (0-6); HEMATOCRIT 32.8 % (37.9-51.0); HEMOGLOBIN 11.3 g/dL (13.5-17.0); LYMPHOCYTES % (AUTO) 49.4 % (13-45); MEAN CORPUSCULAR HEMOGLOBIN 37.6 pg (27.0-33.4); MEAN CORPUSCULAR HGB CONC 34.5 g/dL (32.0-36.0); MEAN CORPUSCULAR VOLUME 109 fl (80-97); MONOCYTES % (AUTO) 8.2 % (3-13); RED BLOOD COUNT 3.01 10^6/uL (4.35-5.55); RED CELL DISTRIBUTION WIDTH 14.4 % (11.5-14.0); SEGMENTED NEUTROPHILS % (AUTO) 38.2 % (42-78); TOTAL CELLS COUNTED % (AUTO) 100 %; WHITE BLOOD COUNT 4.3 10^3/uL (4.0-10.5)
[2019-03-24 08:22] LABS: ALBUMIN 3.3 g/dL (3.5-5.0); ALKALINE PHOSPHATASE 237 U/L (38-126); AMYLASE 146 U/L (30-110); ASPARTATE AMINO TRANSFERASE 97 U/L (17-59); BILIRUBIN,DIRECT 1.2 mg/dL (0.0-0.4); BILIRUBIN,TOTAL 1.7 mg/dL (0.2-1.3); TOTAL PROTEIN 8.7 g/dL (6.3-8.2)
[2019-03-24 08:51] LABS: PLATELET COUNT 91 10^3/uL (150-450)
[2019-03-25 11:37] LABS: HEPATITS B SURFACE ANTIGEN Negative (Negative)
[2019-03-25 12:24] LABS: HEPATITIS C VIRUS ANTIBODY <0.1 s/co ratio (0.0-0.9)
== END ==
LOC: OD 07:30
PROVIDERS: ATTEND Family Medicine Geriatric Medicine
DX: R94.5 Abnormal results of liver function studies (principal); R74.0 Nonspecific elevation of levels of transaminase and lactic acid dehydrogenase [LDH]; J44.9 Chronic obstructive pulmonary disease, unspecified; Z79.899 Other long term (current) drug therapy
CPT/HCPCS: 36415; 80074; 80076; 82150; 82977; 83690; 85025

== ENCOUNTER 2019-05-15 11:13 | Inpatient (IN) | payer MEDICAID ==
[2019-05-15] MEDS ORDERED: NORMAL SALINE 1000 ML 1,000 ML IV ONE (11:29)
[2019-05-15] MEDS ORDERED: ONDANSETRON HCL INJ/PF 4 MG/2 ML SDV IV ONE (11:29)
[2019-05-15] MEDS ORDERED: MORPHINE SULFATE 10 MG/ML INJ IV ONE (11:30)
--- NOTE | 2019-05-15 11:34 | ER Document Report ---
ED Medical Screen (RME) - General Chief Complaint: Abdominal Pain Stated Complaint: STOMACH PAIN Time Seen by Provider: 05/15/19 11:25 Primary Care Provider: SAMMI ASRABIA MD [Primary Care Provider] - Follow up as needed Notes: 58 year old who presents with abdominal pain. Started the other day. Attempted to take aspirin for pain. Now states he has black stools. The pain is in his general abdomen and states he feels more bloated than usual. Patient admits to drinking alcohol. Exam: Firm, moderately tender abdomen. I have greeted and performed a rapid initial assessment of this patient. A comprehensive ED assessment and evaluation of the patient, analysis of test results and completion of medical decision making process will be conducted by an additional ED providers. TRAVEL OUTSIDE OF THE [place] IN LAST 30 DAYS: No - Related Data Allergies/Adverse Reactions: Penicillins Allergy (Unknown, Verified 12/31/17 18:04) shrimp Allergy (Verified 12/31/17 18:04) strawberry Allergy (Verified 12/31/17 18:04) Past Medical History - Social History Frequency of alcohol use: Social - Past Medical History Cardiac Medical History: Denies: Hx Coronary Artery Disease, Hx Heart Attack, Hx Hypertension Pulmonary Medical History: Reports: Hx Asthma, Hx Bronchitis, Hx COPD, Hx Pneumonia - SEVERAL TIMES Neurological Medical History: Denies: Hx Cerebrovascular Accident, Hx Seizures Renal/ Medical History: Denies: Hx Peritoneal Dialysis Musculoskeltal Medical History: Denies Hx Arthritis Past Surgical History: Reports: Hx Orthopedic Surgery - right hip replacement - Immunizations Immunizations up to date: No Hx Diphtheria, Pertussis, Tetanus Vaccination: Yes Physical Exam - Vital signs Vitals: Temp Pulse Resp BP Pulse Ox 98.1 F 115 H 20 134/72 H 95 05/15/19 11:17 05/15/19 11:17 05/15/19 11:17 05/15/19 11:17 05/15/19 11:17 Course - Vital Signs Vital signs: Temp Pulse Resp BP Pulse Ox 98.1 F 115 H 20 134/72 H 95 05/15/19 11:17 05/15/19 11:17 05/15/19 11:17 05/15/19 11:17 05/15/19 11:17 Doctor's Discharge - Discharge Referrals: SAMMI SARABIA MD [Primary Care Provider] - Follow up as needed
--- NOTE | 2019-05-15 11:42 | ER Document Report ---
ED GI/ - General Chief Complaint: Abdominal Pain Stated Complaint: STOMACH PAIN Time Seen by Provider: 05/15/19 11:25 Primary Care Provider: SAMMI SARABIA MD [Primary Care Provider] - Follow up as needed Mode of Arrival: Ambulatory Information source: Patient, Relative TRAVEL OUTSIDE OF THE [place] IN LAST 30 DAYS: No - HPI Patient complains to provider of: Abdominal pain - Pt. states he has had abdominal pain and "tightness" for the past several days. He denies N,V,D. He states his discomfort is mid-epigastric - Related Data Allergies/Adverse Reactions: Penicillins Allergy (Unknown, Verified 12/31/17 18:04) shrimp Allergy (Verified 12/31/17 18:04) strawberry Allergy (Verified 12/31/17 18:04) Past Medical History - General Information source: Patient - Social History Smoking Status: Current Every Day Smoker Frequency of alcohol use: Social Family History: Reviewed & Not Pertinent Patient has suicidal ideation: No Patient has homicidal ideation: No - Past Medical History Cardiac Medical History: Denies: Hx Coronary Artery Disease, Hx Heart Attack, Hx Hypertension Pulmonary Medical History: Reports: Hx Asthma, Hx Bronchitis, Hx COPD, Hx Pneumonia - SEVERAL TIMES Neurological Medical History: Denies: Hx Cerebrovascular Accident, Hx Seizures Renal/ Medical History: Denies: Hx Peritoneal Dialysis Musculoskeletal Medical History: Denies Hx Arthritis Past Surgical History: Reports: Hx Orthopedic Surgery - right hip replacement - Immunizations Immunizations up to date: No Hx Diphtheria, Pertussis, Tetanus Vaccination: Yes Review of Systems - Review of Systems Constitutional: No symptoms reported EENT: No symptoms reported Cardiovascular: No symptoms reported Respiratory: No symptoms reported Gastrointestinal: See HPI, Abdominal pain. denies: Diarrhea, Vomiting Musculoskeletal: No symptoms reported Neurological/Psychological: No symptoms reported -: Yes All other systems reviewed and negative Physical Exam - Vital signs Vitals: Temp Pulse Resp BP Pulse Ox 98.1 F 115 H 20 134/72 H 95 05/15/19 11:17 05/15/19 11:17 05/15/19 11:17 05/15/19 11:17 05/15/19 11:17 - General General appearance: Appears well In distress: None - HEENT Mouth/Lips: Normal Mucous membranes: Normal Pharynx: Normal Neck: Normal - Respiratory Respiratory status: No respiratory distress Breath sounds: Normal - Cardiovascular Rhythm: Regular Heart sounds: Normal auscultation Murmur: No - Abdominal Inspection: Normal Distension: No distension Bowel sounds: Normal Tenderness: Tender - min TTP diffusely with no peritoneal signs. BS positive Organomegaly: No organomegaly - Rectal Tenderness: No Stool: Heme positive, Black Hemorrhoids: None - Extremities General upper extremity: Normal inspection General lower extremity: Normal inspection - Neurological Neuro grossly intact: Yes Cognition: Normal Orientation: AAOx4 Course - Re-evaluation Re-evalutation: 05/15/19 13:54 Pt' s exam unchanged -- will call hospitalist for consult - Vital Signs Vital signs: Temp Pulse Resp BP Pulse Ox 98.1 F 115 H 15 121/65 97 05/15/19 11:17 05/15/19 11:17 05/15/19 13:20 05/15/19 13:20 05/15/19 13:20 - Laboratory Result Diagrams: 05/15/19 12:03 05/15/19 12:03 Laboratory results interpreted by me: 05/15/19 05/15/19 05/15/19 12:03 12:03 13:00 RBC 2.36 L Hgb 8.8 L Hct 25.4 L MCV 108 H MCH 37.5 H RDW 15.2 H Plt Count 56 L Sodium 135.4 L Calcium 8.3 L Total Bilirubin 3.5 H Direct Bilirubin 2.0 H AST 168 H Alkaline Phosphatase 232 H Albumin 2.8 L Lipase 309.8 H Urine Ketones TRACE H Urine Bilirubin SMALL H Urine Urobilinogen 4.0 H - Diagnostic Test Radiology reviewed: Reports reviewed - mod amount ascites without obvious etiology - EKG Interpretation by Me EKG shows normal: Sinus rhythm Rate: Normal Rhythm: NSR - Consults dipti Rios Time consulted: 13:55 Consulted provider: will come to ER Critical Care Note - Critical Care Note Total time excluding time spent on procedures (mins): 30 Discharge - Discharge Clinical Impression: Thrombocytopenia Ascites Qualifiers: Ascites type: other type Qualified Code(s): R18.8 - Other ascites Anemia Qualifiers: Anemia type: unspecified type Qualified Code(s): D64.9 - Anemia, unspecified Condition: Fair Disposition: ADMITTED OBSERVATION Admitting Provider: Blanca (Hospitalist) Unit Admitted: Medical Floor Referrals: SAMMI SARABIA MD [Primary Care Provider] - Follow up as needed
[2019-05-15 12:27] LABS: ABSOLUTE EOSINOPHILS # (AUTO) 0.1 10^3/uL (0.0-0.6); ABSOLUTE LYMPHOCYTES (AUTO) 1.6 10^3/uL (0.5-4.7); ABSOLUTE MONOCYTES (AUTO) 0.4 10^3/uL (0.1-1.4); ABSOLUTE NEUT (AUTO) 1.9 10^3/uL (1.7-8.2); EOSINOPHILS % (AUTO) 1.8 % (0-6); HEMATOCRIT 25.4 % (37.9-51.0); HEMOGLOBIN 8.8 g/dL (13.5-17.0); LYMPHOCYTES % (AUTO) 40.3 % (13-45); MEAN CORPUSCULAR HEMOGLOBIN 37.5 pg (27.0-33.4); MEAN CORPUSCULAR HGB CONC 34.7 g/dL (32.0-36.0); MEAN CORPUSCULAR VOLUME 108 fl (80-97); MONOCYTES % (AUTO) 10.3 % (3-13); RED BLOOD COUNT 2.36 10^6/uL (4.35-5.55); RED CELL DISTRIBUTION WIDTH 15.2 % (11.5-14.0); SEGMENTED NEUTROPHILS % (AUTO) 46.6 % (42-78); TOTAL CELLS COUNTED % (AUTO) 100 %
[2019-05-15 12:53] LABS: PLATELET COUNT 56 10^3/uL (150-450)
[2019-05-15 12:54] LABS: ALBUMIN 2.8 g/dL (3.5-5.0); ALKALINE PHOSPHATASE 232 U/L (38-126); ANION GAP 9 (5-19); ASPARTATE AMINO TRANSFERASE 168 U/L (17-59); BILIRUBIN,TOTAL 3.5 mg/dL (0.2-1.3); BLOOD UREA NITROGEN 8 mg/dL (7-20); CALCIUM 8.3 mg/dL (8.4-10.2); CARBON DIOXIDE 23 mmol/L (22-30); CHLORIDE 103 mmol/L (98-107); GLUCOSE 91 mg/dL (75-110); POTASSIUM 3.9 mmol/L (3.6-5.0); TOTAL PROTEIN 7.7 g/dL (6.3-8.2)
[2019-05-15 13:15] LABS: APPEARANCE,URINE CLEAR; BILIRUBIN,URINE SMALL (NEGATIVE); GLUCOSE, URINE NEGATIVE (NEGATIVE); KETONES,URINE TRACE mg/dL (NEGATIVE); LEUKOCYTE ESTERASE,URINE NEGATIVE (NEGATIVE); NITRITE,URINE NEGATIVE (NEGATIVE); PROTEIN,URINE NEGATIVE (NEGATIVE); URINE SPECIFIC GRAVITY 1.017
[2019-05-15 13:22] LABS: COLOR,URINE DARK YELLOW
--- NOTE | 2019-05-15 13:26 | RADIOLOGY REPORT (SQ) ---
EXAM DESCRIPTION: CT ABD/PELVIS WITH IV ONLY COMPLETED DATE/TIME: 05/15/2019 1:11 pm REASON FOR STUDY: abd pain COMPARISON: 02/05/2017 TECHNIQUE: CT scan of the abdomen and pelvis performed using helical scanning technique with dynamic intravenous contrast injection. No oral contrast. Images reviewed with lung, soft tissue, and bone windows. Reconstructed coronal and sagittal MPR images reviewed. Delayed images for evaluation of the urinary system also acquired. All images stored on PACS. All CT scanners at this facility use dose modulation, iterative reconstruction, and/or weight based d osing when appropriate to reduce radiation dose to as low as reasonably achievable (ALARA). [facility]: Dose Right [facility]: CareDose [facility]: Dose Right [facility]: Teradose 4D [facility]: Educents CONTRAST TYPE AND DOSE: contrast/concentration: Isovue 350.00 mg/ml; Total Contrast Delivered: 66.0 ml; Total Saline Delivered: 65.0 ml RENAL FUNCTION: GFR > 60. RADIATION DOSE: CT Rad equipment meets quality standard of care and radiation dose reduction techniq ues were employed. CTDIvol: 4.8 - 5.2 mGy. DLP: 512 mGy-cm.. LIMITATIONS: None. FINDINGS: LOWER CHEST: No significant findings. No nodules or infiltrates. LIVER: Normal size. No masses. No dilated ducts. SPLEEN: Normal size. No focal lesions. PANCREAS: No masses. No significant calcifications. No adjacent inflammation or peripancreatic fluid collections. Pancreatic duct not dilated. GALLBLADDER: No identified stones by CT criteria. No inflammatory changes to suggest cholecystitis. ADRENAL GLANDS: No significant masses or asymmetry. RIGHT KIDNEY AND URETER: No solid masses. No significant calcifications. No hydronephrosis or hyd roureter. LEFT KIDNEY AND URETER: No solid masses. No significant calcifications. No hydronephrosis or hydr oureter. AORTA AND VESSELS: No aneurysm. No dissection. Renal arteries, SMA, celiac without stenosis. Calcifi c atherosclerosis. RETROPERITONEUM: No retroperitoneal adenopathy, hemorrhage or masses. BOWEL AND PERITONEAL CAVITY: No masses or inflammatory changes. Moderate volume ascites. APPENDIX: Not clearly visualized. PELVIS: No mass. No free fluid. Normal bladder. ABDOMINAL WALL: No masses. No hernias. BONES: No significant or acute findings. OTHER: No other significant finding. IMPRESSION: Moderate volume ascites without obvious etiology. TECHNICAL DOCUMENTATION: JOB ID: [id number] Quality ID # [id number]: Final reports with documentation of one or more dose reduction techniques (e.g., Au tomated exposure control, adjustment of the mA and/or kV according to patient size, use of iterative reconstruction technique) 2010 [employer]- All Rights Reserved Reading location - IP/workstation name: [email or web address]
[2019-05-15] MEDS ORDERED: DEXTROSE 5%-NORMAL SALINE 1,000 ML IV PRN (15:14)
[2019-05-15] MEDS ORDERED: IPRATROPIUM/ALBUTEROL 0.5-2.5 MG/3 ML AMPUL NEB PRN (15:15)
[2019-05-15] MEDS ORDERED: CYANOCOBALAMIN (VITAMIN B-12) INJ 1000 MCG/1 ML VIAL IM SCH (16:00)
[2019-05-15] MEDS ORDERED: THIAMINE HCL 100 MG TABLET PO SCH (16:00)
--- NOTE | 2019-05-15 16:14 | PDOC H&P ---
History of Present Illness Admission Date/PCP: 05/15/19 14:02 SAMMI SARABIA MD History of Present Illness: KELLEY CELESTIN is a 58 year old male past medical history of asthma, chronic alc ohol abuse, daily drink for 40 years, presenting to the ED planing of worsening abdominal tightness, abdominal distention, associated with shortness of breath and melanotic stool. Drinks daily about 40 to 80 ounces of beer daily, denies any history of previous GI bleed, liver cirrhosis, GI malignancy, delirium tremens, hematemesis, hemoptysis, hematochezia. Denies any fever, chills, nausea, vomiting, constipation, diarrhea, chest pain, urinary symptoms. In ED hemoglobin was 8.8, T bili 3.5, and his stool was guaiac positive. A CT abdomen and pelvis showed severe ascites. Hospitalist was consulted for admission. Past Medical History Cardiac Medical History: Denies: Coronary Artery Disease, Myocardial Infarction, Hypertension Pulmonary Medical History: Reports: Asthma, Bronchitis, Chronic Obstructive Pulmonary Disease (COPD), Pneumonia - SEVERAL TIMES Neurological Medical History: Denies: Seizures Musculoskeltal Medical History: Denies: Arthritis Hematology: Denies: Anemia Past Surgical History Past Surgical History: Reports: Orthopedic Surgery - right hip replacement Social History Smoking Status: Current Every Day Smoker Family History Family History: Reviewed & Not Pertinent Parental Family History Reviewed: Yes Children Family History Reviewed: Yes Sibling(s) Family History Reviewed.: Yes Medication/Allergy Home Medications: No Home Medications 05/15/19 Allergies/Adverse Reactions: Penicillins Allergy (Unknown, Verified 12/31/17 18:04) shrimp Allergy (Verified 12/31/17 18:04) strawberry Allergy (Verified 12/31/17 18:04) Review of Systems Review of Systems: as per hpi Physical Exam Vital Signs: Temp Pulse Resp BP Pulse Ox 98.1 F 115 H 13 108/67 96 05/15/19 11:17 05/15/19 11:17 05/15/19 15:01 05/15/19 15:01 05/15/19 15:01 Intake & Output 05/14/19 05/15/19 05/16/19 06:59 06:59 06:59 Intake Total 1000 Balance 1000 Weight 58 kg General appearance: PRESENT: no acute distress, thin Head exam: PRESENT: atraumatic, normocephalic Eye exam: PRESENT: scleral icterus Neck exam: ABSENT: carotid bruit, JVD, lymphadenopathy, thyromegaly Respiratory exam: PRESENT: crackles - bibasilar. ABSENT: rales, rhonchi, wheezes Cardiovascular exam: PRESENT: RRR, tachycardia. ABSENT: bradycardia, clicks, diastolic murmur, gallop, irregular rhythm, rubs, +S1, +S2, systolic murmur, other Pulses: PRESENT: normal dorsalis pedis pul GI/Abdominal exam: PRESENT: ascites, distended, firm, normal bowel sounds Neurological exam: PRESENT: alert, awake, oriented to person, oriented to place, oriented to time, oriented to situation, CN II-XII grossly intact. ABSENT: motor sensory deficit Skin exam: PRESENT: jaundice Results Laboratory Results: 05/15/19 12:03 05/15/19 12:03 05/15/19 05/15/19 05/15/19 12:03 12:03 13:00 WBC 4.0 RBC 2.36 L Hgb 8.8 L Hct 25.4 L MCV 108 H MCH 37.5 H MCHC 34.7 RDW 15.2 H Plt Count 56 L Seg Neutrophils % 46.6 Sodium 135.4 L Potassium 3.9 Chloride 103 Carbon Dioxide 23 Anion Gap 9 BUN 8 Creatinine 0.85 Est GFR ( Amer) > 60 Glucose 91 Calcium 8.3 L Total Bilirubin 3.5 H AST 168 H Alkaline Phosphatase 232 H Total Protein 7.7 Albumin 2.8 L Lipase 309.8 H Urine Color DARK YELLOW Urine Appearance CLEAR Urine pH 6.0 Ur Specific [place] 1.017 Urine Protein NEGATIVE Urine Glucose (UA) NEGATIVE Urine Ketones TRACE H Urine Blood NEGATIVE Urine Nitrite NEGATIVE Ur Leukocyte Esterase NEGATIVE Urine WBC (Auto) 1 Urine RBC (Auto) 0 Blood Type Antibody Screen 05/15/19 05/15/19 13:40 14:10 WBC RBC Hgb Hct MCV MCH MCHC RDW Plt Count Seg Neutrophils % Sodium Potassium Chloride Carbon Dioxide Anion Gap BUN Creatinine Est GFR ( Amer) Glucose Calcium Total Bilirubin AST Alkaline Phosphatase Total Protein Albumin Lipase Urine Color Urine Appearance Urine pH Ur Specific [place] Urine Protein Urine Glucose (UA) Urine Ketones Urine Blood Urine Nitrite Ur Leukocyte Esterase Urine WBC (Auto) Urine RBC (Auto) Blood Type Cancelled O POSITIVE Antibody Screen Cancelled NEGATIVE Impressions: Abdomen/Pelvis CT 05/15/19 11:29 IMPRESSION: Moderate volume ascites without obvious etiology. Assessment and Plan - Diagnosis (1) GI bleed Qualifiers: Gastritis type: alcoholic Is this a current diagnosis for this admission?: Yes Plan: Denies any history of previous GI bleed, denies any history of cirrhosis. Noted to have elevated bilirubin, thrombocytopenia, macrocytosis, anemia, T bili 3.5 Likely variceal bleeding due to undiagnosed liver cirrhosis caused by chronic heavy alcohol abuse. Admit to telemetry, monitor H&H, surgery consult for endoscopy, transfuse if actively bleeding or hemoglobin less than 7 or symptomatic. (2) Alcoholic liver disease Is this a current diagnosis for this admission?: Yes Plan: In the presence of macrocytosis, thrombocytopenia, elevated T bili, elevated liver chemistries and hypoalbuminemia patient probably has advanced liver disease such as cirrhosis. CT abdomen does not mention hepatic steatosis or cirrhosis. Monitor liver enzymes, monitor for bleeding, avoid hepatotoxic meds, hepatic diet. We will consult gastroenterology. Unfortunately gastroenterology consult only available on Tuesdays. (3) Abdominal tightness Is this a current diagnosis for this admission?: Yes Plan: To be due to severe ascites caused by worsening alcoholic liver disease. Fluid restriction, hepatic diet, paracentesis with peritoneal fluid analysis ordered. (4) History of asthma Is this a current diagnosis for this admission?: Yes Plan: Does not take any medication. Does not seem to be exacerbated. PRN DuoNeb's, LABA, ICS. (5) ETOH abuse Is this a current diagnosis for this admission?: Yes Plan: Denies any history of DVT. Patient has asterixis. Admit to telemetry, folic acid, thiamine, benzodiazepines for withdrawal. Monitor for DT. (6) Tobacco abuse Is this a current diagnosis for this admission?: Yes Plan: Counseled on abstinence. Nicotine patch will be made available. (7) Anemia Qualifiers: Anemia type: iron deficiency Qualified Code(s): D64.9 - Anemia, unspecified Is this a current diagnosis for this admission?: Yes Plan: Due to #1. Plan as per #1.
[2019-05-15 16:32] LABS: INTERNATIONAL RATION (INR) 1.85; PROTHROMBIN TIME 21.6 SEC (11.4-15.4)
--- NOTE | 2019-05-15 17:00 | RADIOLOGY REPORT (SQ) ---
EXAM DESCRIPTION: U/S ABDOMEN LIMITED W/O DOP COMPLETED DATE/TIME: 05/15/2019 4:37 pm REASON FOR STUDY: ASSESS FLUID PER RAD, ASCITES COMPARISON: CT dated 05/15/2019. TECHNIQUE: Limited Static and real time armendariz scale imaging performed of the 4 abdominal quadrants an d the midline. LIMITATIONS: None. FINDINGS: ASCITES: There is some fluid surrounding the liver. Minimal fluid in the right lower quad rant and left lower quadrant. No fluid demonstrated in the left upper quadrant. OTHER: No other significant finding. IMPRESSION: ASCITES EVALUATION ABOVE. TECHNICAL DOCUMENTATION: JOB ID: [id number] [employer]- All Rights Reserved Reading location - IP/workstation name: [email or web address]
[2019-05-15] MEDS: PANTOPRAZOLE SODIUM 40 MG VIAL IV SCH (18:40)
[2019-05-15] MEDS: PROPRANOLOL HCL 40 MG TABLET PO SCH (18:40)
[2019-05-15] MEDS: FOLIC ACID/VITAMIN B COMP W-C CAPSULE PO SCH (18:40)
[2019-05-15] MEDS: LORAZEPAM INJ 2 MG/1 ML VIAL IV PRN (18:44)
[2019-05-15] MEDS: GUAIFENESIN 600 MG TABLET.SA PO SCH (21:23)
[2019-05-15] MEDS: THIAMINE HCL 100 MG TABLET PO SCH (21:23)
[2019-05-15] MEDS: CYANOCOBALAMIN (VITAMIN B-12) INJ 1000 MCG/1 ML VIAL IM SCH (21:28)
[2019-05-15 22:35] LABS: HEMATOCRIT 20.7 % (37.9-51.0); MEAN CORPUSCULAR HEMOGLOBIN 37.8 pg (27.0-33.4); MEAN CORPUSCULAR HGB CONC 34.7 g/dL (32.0-36.0); MEAN CORPUSCULAR VOLUME 109 fl (80-97); RED CELL DISTRIBUTION WIDTH 15.1 % (11.5-14.0); WHITE BLOOD COUNT 4.2 10^3/uL (4.0-10.5)
--- NOTE | 2019-05-15 22:45 | PDOC CONSULTATION ---
Consultation Consult Date: 05/15/19 Provider Consulted: JERAMY GRANGER Consult reason:: hemoccult positive stool with anemia History of Present Illness Admission Date/PCP: 05/15/19 15:15 SAMMI SARABIA MD Patient complains of: Feeling of tightness of the abdomen with associated difficulty breathing History of Present Illness: KELLEY CELESTIN is a 58 year old male with chronic alcoholism with the last intake of alcohol yesterday has been complaining of worsening feeling of tightness of the abdomen with the shortness of breath in the past few days. He was noted to have a stool Hemoccult positive for blood and hemoglobin was about 8.8. Surgeries been consulted for possible EGD. Denies vomiting, fever no chills. Admits to having some dark stools. Past Medical History Cardiac Medical History: Denies: Coronary Artery Disease, Myocardial Infarction, Hypertension Pulmonary Medical History: Reports: Asthma, Bronchitis, Chronic Obstructive Pulmonary Disease (COPD), Pneumonia - SEVERAL TIMES Neurological Medical History: Denies: Seizures Musculoskeltal Medical History: Denies: Arthritis Hematology: Denies: Anemia Past Surgical History Past Surgical History: Reports: Orthopedic Surgery - right hip replacement Social History Smoking Status: Current Every Day Smoker Cigarettes Packs Per Day: 0.2 Frequency of Alcohol Use: Heavy Hx Recreational Drug Use: No Drugs: None Hx Prescription Drug Abuse: No Family History Family History: Reviewed & Not Pertinent Parental Family History Reviewed: Yes Children Family History Reviewed: No Sibling(s) Family History Reviewed.: No Medication/Allergy Home Medications: No Home Medications 05/15/19 Allergies/Adverse Reactions: Penicillins Allergy (Unknown, Verified 12/31/17 18:04) shrimp Allergy (Verified 12/31/17 18:04) strawberry Allergy (Verified 12/31/17 18:04) Review of Systems Constitutional: PRESENT: as per HPI Gastrointestinal: PRESENT: other - Tightness sensation in the abdomen Neurological: PRESENT: other - Speech is slightly slurred Physical Exam Vital Signs: Temp Pulse Resp BP Pulse Ox 97.6 F 85 17 105/59 L 94 05/15/19 19:41 05/15/19 19:41 05/15/19 19:41 05/15/19 19:41 05/15/19 19:41 Intake & Output 05/14/19 05/15/19 05/16/19 06:59 06:59 06:59 Intake Total 1000 Balance 1000 Weight 59.2 kg General appearance: PRESENT: mild distress Head exam: PRESENT: atraumatic Mouth exam: PRESENT: moist Neck exam: PRESENT: full ROM Respiratory exam: PRESENT: clear to auscultation pat Cardiovascular exam: PRESENT: RRR Pulses: PRESENT: normal radial pulses Vascular exam: PRESENT: normal capillary refill GI/Abdominal exam: PRESENT: distended, firm Rectal exam: PRESENT: deferred Extremities exam: PRESENT: full ROM Musculoskeletal exam: PRESENT: full ROM Neurological exam: PRESENT: alert, oriented to person, oriented to place, or iented to time, oriented to situation, other - Speech is slightly slurred Psychiatric exam: PRESENT: appropriate affect Skin exam: PRESENT: normal color, warm Results Laboratory Results: 05/15/19 12:03 05/15/19 05/15/19 05/15/19 12:03 12:03 12:03 WBC 4.0 RBC 2.36 L Hgb 8.8 L Hct 25.4 L MCV 108 H MCH 37.5 H MCHC 34.7 RDW 15.2 H Plt Count 56 L Seg Neutrophils % 46.6 Sodium 135.4 L Potassium 3.9 Chloride 103 Carbon Dioxide 23 Anion Gap 9 BUN 8 Creatinine 0.85 Est GFR ( Amer) > 60 Glucose 91 Calcium 8.3 L Total Bilirubin 3.5 H AST 168 H Alkaline Phosphatase 232 H Ammonia 14.8 Total Protein 7.7 Albumin 2.8 L Lipase 309.8 H Urine Color Urine Appearance Urine pH Ur Specific [place] Urine Protein Urine Glucose (UA) Urine Ketones Urine Blood Urine Nitrite Ur Leukocyte Esterase Urine WBC (Auto) Urine RBC (Auto) Blood Type Antibody Screen 05/15/19 05/15/19 05/15/19 12:03 13:00 13:40 WBC RBC Hgb Hct MCV MCH MCHC RDW Plt Count Seg Neutrophils % Sodium Potassium Chloride Carbon Dioxide Anion Gap BUN Creatinine Est GFR ( Amer) Glucose Calcium Total Bilirubin AST Alkaline Phosphatase Ammonia Total Protein Cancelled Albumin Lipase Urine Color DARK YELLOW Urine Appearance CLEAR Urine pH 6.0 Ur Specific [place] 1.017 Urine Protein NEGATIVE Urine Glucose (UA) NEGATIVE Urine Ketones TRACE H Urine Blood NEGATIVE Urine Nitrite NEGATIVE Ur Leukocyte Esterase NEGATIVE Urine WBC (Auto) 1 Urine RBC (Auto) 0 Blood Type Cancelled Antibody Screen Cancelled 05/15/19 14:10 WBC RBC Hgb Hct MCV MCH MCHC RDW Plt Count Seg Neutrophils % Sodium Potassium Chloride Carbon Dioxide Anion Gap BUN Creatinine Est GFR ( Amer) Glucose Calcium Total Bilirubin AST Alkaline Phosphatase Ammonia Total Protein Albumin Lipase Urine Color Urine Appearance Urine pH Ur Specific [place] Urine Protein Urine Glucose (UA) Urine Ketones Urine Blood Urine Nitrite Ur Leukocyte Esterase Urine WBC (Auto) Urine RBC (Auto) Blood Type O POSITIVE Antibody Screen NEGATIVE Impressions: Abdomen Ultrasound 05/15/19 00:00 IMPRESSION: ASCITES EVALUATION ABOVE. Abdomen/Pelvis CT 05/15/19 11:29 IMPRESSION: Moderate volume ascites without obvious etiology. Assessment & Plan - Diagnosis (1) Abdominal tightness Is this a current diagnosis for this admission?: Yes (2) Alcoholic liver disease Is this a current diagnosis for this admission?: Yes (3) Anemia Qualifiers: Anemia type: iron deficiency Qualified Code(s): D64.9 - Anemia, unspecified Is this a current diagnosis for this admission?: Yes (4) Ascites Qualifiers: Ascites type: other type Qualified Code(s): R18.8 - Other ascites Is this a current diagnosis for this admission?: Yes (5) ETOH abuse Is this a current diagnosis for this admission?: Yes (6) GI bleed Qualifiers: Gastritis type: alcoholic Is this a current diagnosis for this admission?: Yes (7) Thrombocytopenia Is this a current diagnosis for this admission?: Yes (8) Tobacco abuse Is this a current diagnosis for this admission?: Yes - Time Time Spent: 30 to 50 Minutes - Inpatient Certification Medical Necessity: Need Close Monitoring Due to Risk of Patient Decompensation, Need For IV Fluids, Risk of Complication if Not Cared For in Hospital - Plan Summary Plan Summary: Patient is obviously alcoholic liver cirrhosis with elevated bilirubin and marketed thrombocytopenia. EGD could be done but we may have some problems as far as use of instrumentation to take care of the diuresis primarily bleeding varices. Also our blood bank study complete equipped to handle a lot of blood transfusions together with plasma and platelet transfusions. He needs to be stabilized for further because of possibility of withdrawal since his last alcohol intake was yesterday. He he would be better taking care off and tertiary facility where the they have a GI consult available together with good blood bank and other support systems. I will inform tomorrow morning about the patient's consult with regards to endoscopy.
[2019-05-15 22:55] LABS: HEMOGLOBIN 7.2 g/dL (13.5-17.0); PLATELET COUNT 44 10^3/uL (150-450)
[2019-05-16] MEDS ORDERED: OCTREOTIDE ACETATE INJ/PF 100 MCG/1 ML SDV ONE (02:51)
[2019-05-16] MEDS: NORMAL SALINE 500 ML with OCTREOTIDE ACETATE 500 MCG IV PRN ×4 (04:56→21:55)
[2019-05-16] MEDS: PROPRANOLOL HCL 40 MG TABLET PO SCH (05:01)
[2019-05-16] MEDS: PANTOPRAZOLE SODIUM 40 MG VIAL IV SCH (05:03)
[2019-05-16] MEDS: LORAZEPAM INJ 2 MG/1 ML VIAL IV PRN ×5 (05:11→21:56)
[2019-05-16] MEDS ORDERED: LORAZEPAM INJ 2 MG/1 ML VIAL ONE (07:33)
[2019-05-16] MEDS ORDERED: DIAZEPAM INJ 10 MG/2 ML DISP.SYRIN IV PRN (07:39)
[2019-05-16 08:40] LABS: HEMATOCRIT 26.8 % (37.9-51.0); HEMOGLOBIN 9.2 g/dL (13.5-17.0); MEAN CORPUSCULAR HEMOGLOBIN 35.9 pg (27.0-33.4); MEAN CORPUSCULAR HGB CONC 34.3 g/dL (32.0-36.0); RED BLOOD COUNT 2.56 10^6/uL (4.35-5.55); RED CELL DISTRIBUTION WIDTH 20.4 % (11.5-14.0); WHITE BLOOD COUNT 4.2 10^3/uL (4.0-10.5)
[2019-05-16 08:56] LABS: ALBUMIN 2.6 g/dL (3.5-5.0); ALKALINE PHOSPHATASE 163 U/L (38-126); ANION GAP 7 (5-19); ASPARTATE AMINO TRANSFERASE 131 U/L (17-59); BILIRUBIN,DIRECT 2.5 mg/dL (0.0-0.4); BILIRUBIN,TOTAL 3.8 mg/dL (0.2-1.3); BLOOD UREA NITROGEN 6 mg/dL (7-20); CALCIUM 7.9 mg/dL (8.4-10.2); CARBON DIOXIDE 23 mmol/L (22-30); CHLORIDE 106 mmol/L (98-107); GLUCOSE 90 mg/dL (75-110); POTASSIUM 4.1 mmol/L (3.6-5.0); TOTAL PROTEIN 7.2 g/dL (6.3-8.2)
[2019-05-16] MEDS ORDERED: DIAZEPAM INJ 10 MG/2 ML DISP.SYRIN ONE ×2 (08:57→10:43)
--- NOTE | 2019-05-16 09:02 | EKG REPORT ---
SEVERITY:- ABNORMAL ECG - SINUS RHYTHM CONSIDER LEFT VENTRICULAR HYPERTROPHY PROLONGED QT INTERVAL : Confirmed by: Chente Mccollum 16-May-2019 09:01:51
--- NOTE | 2019-05-16 09:03 | Progress Note ---
Provider Note Provider Note: pt confused, cannot answer questions soft restraints pt's brother states he is still using etoh abd softly distended with ascites h/h pending from this am after receiving prbc yesterday pt plt [address] Rios will attempt to tx to tertiary facility due to high risk of varices. and cirrhosis
[2019-05-16 09:04] LABS: MEAN CORPUSCULAR VOLUME 105 fl (80-97); PLATELET COUNT 51 10^3/uL (150-450)
[2019-05-16] MEDS ORDERED: FLUTICASONE/VILANTEROL 100-25 MCG/DOSE IH SCH (10:00)
--- NOTE | 2019-05-16 10:16 | PDOC PROGRESS REPORT ---
Subjective Progress Note for:: 05/16/19 Subjective:: KELLEY CELESITN is a 58 year old male past medical history of asthma, chronic alcohol abuse, daily drink for 40 years, presenting to the ED planing of worsening abdominal tightness, abdominal distention, associated with shortness of breath and melanotic stool. Drinks daily about 40 to 80 ounces of beer daily, denies any history of previous GI bleed, liver cirrhosis, GI malignancy, delirium tremens, hematemesis, hemoptysis, hematochezia. Denies any fever, chills, nausea, vomiting, constipation, diarrhea, chest pain, urinary symptoms. In ED hemoglobin was 8.8, T bili 3.5, and his stool was guaiac positive. A CT abdomen and pelvis showed severe ascites. Hospitalist was consulted for admission. 05/16/2019. Patient in acute alcohol withdrawal, very agitated, to be restrained and given IV benzodiazepines, patient denies any active hallucination or formication however very restless and agitated, surgery has been consulted however no intervention planned as patient may have variceal bleeding or TIPS which unfortunately cannot be done here at [facility]. Surgery is recommending transfer to a tertiary center. Reason For Visit: GI BLEED Physical Exam Vital Signs: Temp Pulse Resp BP Pulse Ox 98.2 F 86 16 119/61 95 05/16/19 04:30 05/16/19 07:00 05/16/19 04:30 05/16/19 04:30 05/16/19 04:30 Intake & Output 05/15/19 05/16/19 05/17/19 06:59 06:59 06:59 Intake Total 2311 Balance 2311 Weight 60.7 kg General appearance: PRESENT: no acute distress, well-developed, well-nourished Head exam: PRESENT: atraumatic, normocephalic Respiratory exam: PRESENT: clear to auscultation pat, wheezes. ABSENT: rales, rhonchi GI/Abdominal exam: PRESENT: distended, firm, normal bowel sounds. ABSENT: guarding, mass, organolmegaly, rebound, tenderness Extremities exam: PRESENT: full ROM. ABSENT: calf tenderness, clubbing, pedal edema Neurological exam: PRESENT: alert, altered, awake, oriented to person, oriented to time, CN II-XII grossly intact Psychiatric exam: PRESENT: agitated, anxious Results Laboratory Results: 05/16/19 08:17 05/16/19 08:17 05/15/19 05/15/19 05/15/19 12:03 12:03 12:03 WBC 4.0 RBC 2.36 L Hgb 8.8 L Hct 25.4 L MCV 108 H MCH 37.5 H MCHC 34.7 RDW 15.2 H Plt Count 56 L Seg Neutrophils % 46.6 Sodium 135.4 L Potassium 3.9 Chloride 103 Carbon Dioxide 23 Anion Gap 9 BUN 8 Creatinine 0.85 Est GFR ( Amer) > 60 Glucose 91 Calcium 8.3 L Total Bilirubin 3.5 H AST 168 H Alkaline Phosphatase 232 H Ammonia 14.8 Total Protein 7.7 Albumin 2.8 L Lipase 309.8 H Urine Color Urine Appearance Urine pH Ur Specific [place] Urine Protein Urine Glucose (UA) Urine Ketones Urine Blood Urine Nitrite Ur Leukocyte Esterase Urine WBC (Auto) Urine RBC (Auto) Blood Type Antibody Screen 05/15/19 05/15/19 05/15/19 12:03 13:00 13:40 WBC RBC Hgb Hct MCV MCH MCHC RDW Plt Count Seg Neutrophils % Sodium Potassium Chloride Carbon Dioxide Anion Gap BUN Creatinine Est GFR ( Amer) Glucose Calcium Total Bilirubin AST Alkaline Phosphatase Ammonia Total Protein Cancelled Albumin Lipase Urine Color DARK YELLOW Urine Appearance CLEAR Urine pH 6.0 Ur Specific [place] 1.017 Urine Protein NEGATIVE Urine Glucose (UA) NEGATIVE Urine Ketones TRACE H Urine Blood NEGATIVE Urine Nitrite NEGATIVE Ur Leukocyte Esterase NEGATIVE Urine WBC (Auto) 1 Urine RBC (Auto) 0 Blood Type Cancelled Antibody Screen Cancelled 05/15/19 05/15/19 05/16/19 14:10 22:14 08:17 WBC 4.2 RBC 1.90 L Hgb 7.2 L Hct 20.7 L MCV 109 H MCH 37.8 H MCHC 34.7 RDW 15.1 H Plt Count 44 L Seg Neutrophils % Sodium 135.5 L Potassium 4.1 Chloride 106 Carbon Dioxide 23 Anion Gap 7 BUN 6 L Creatinine 0.79 Est GFR ( Amer) > 60 Glucose 90 Calcium 7.9 L Total Bilirubin 3.8 H AST 131 H Alkaline Phosphatase 163 H Ammonia Total Protein 7.2 Albumin 2.6 L Lipase Urine Color Urine Appearance Urine pH Ur Specific [place] Urine Protein Urine Glucose (UA) Urine Ketones Urine Blood Urine Nitrite Ur Leukocyte Esterase Urine WBC (Auto) Urine RBC (Auto) Blood Type O POSITIVE Antibody Screen NEGATIVE 05/16/19 08:17 WBC 4.2 RBC 2.56 L Hgb 9.2 L Hct 26.8 L MCV 105 H D MCH 35.9 H MCHC 34.3 RDW 20.4 H Plt Count 51 L Seg Neutrophils % Sodium Potassium Chloride Carbon Dioxide Anion Gap BUN Creatinine Est GFR ( Amer) Glucose Calcium Total Bilirubin AST Alkaline Phosphatase Ammonia Total Protein Albumin Lipase Urine Color Urine Appearance Urine pH Ur Specific [place] Urine Protein Urine Glucose (UA) Urine Ketones Urine Blood Urine Nitrite Ur Leukocyte Esterase Urine WBC (Auto) Urine RBC (Auto) Blood Type Antibody Screen Impressions: Abdomen Ultrasound 05/15/19 00:00 IMPRESSION: ASCITES EVALUATION ABOVE. Abdomen/Pelvis CT 05/15/19 11:29 IMPRESSION: Moderate volume ascites without obvious etiology. Assessment and Plan - Diagnosis (1) Alcohol withdrawal Qualifiers: Complication of substance-induced condition: with unspecified complication Qualified Code(s): F10.239 - Alcohol dependence with withdrawal, unspecified Is this a current diagnosis for this admission?: Yes Plan: CIWAS- Ar 16 Heavy daily EtOH abuse. Started on benzodiazepine schedule and PRN, folic acid, thiamine, seizure precautions. (2) GI bleed Qualifiers: Gastritis type: alcoholic Is this a current diagnosis for this admission?: Yes Plan: Melanotic stool, no hematemesis or hematochezia. Likely variceal bleeding due to undiagnosed liver cirrhosis caused by chronic heavy alcohol abuse. Noted to have elevated bilirubin, thrombocytopenia, macrocytosis, anemia, T bili 3.5 on admission. Surgery has been consulted however recommendation is to transfer to tertiary center as he may need variceal banding TIPS. I have called [facility] for possible transfer waiting return call. Continue telemetry, PPI drip, octreotide drip, beta-blockers, monitor H&H, transfuse if actively bleeding or hemoglobin less than 7 or symptomatic. (3) Alcoholic liver disease Is this a current diagnosis for this admission?: Yes Plan: In the presence of macrocytosis, thrombocytopenia, elevated T bili, elevated liver chemistries and hypoalbuminemia patient probably has advanced liver ci rrhosis. CT abdomen does not mention hepatic steatosis or cirrhosis. Monitor liver enzymes, monitor for bleeding, avoid hepatotoxic meds, hepatic diet. We will consult gastroenterology. Unfortunately gastroenterology consult only available on Tuesdays. (4) Abdominal tightness Is this a current diagnosis for this admission?: Yes Plan: To be due to severe ascites caused by worsening alcoholic liver disease. Fluid restriction, hepatic diet, paracentesis with peritoneal fluid analysis ordered. Not sure if patient will be able to get paracentesis given his thrombocytopenia and elevated INR. (5) History of asthma Is this a current diagnosis for this admission?: Yes Plan: Does not take any medication. Does not seem to be exacerbated. PRN DuoNeb's, LABA. Avoid steroids due to acute GI bleed. (6) ETOH abuse Is this a current diagnosis for this admission?: Yes Plan: Denies any history of DVT. Patient has asterixis. Admit to telemetry, folic acid, thiamine, benzodiazepines for withdrawal. Monitor for DT. (7) Tobacco abuse Is this a current diagnosis for this admission?: Yes Plan: Counseled on abstinence. Nicotine patch will be made available. (8) Anemia Qualifiers: Anemia type: iron deficiency Qualified Code(s): D64.9 - Anemia, unspecified Is this a current diagnosis for this admission?: Yes Plan: As per number 2
[2019-05-16] MEDS ORDERED: NORMAL SALINE 100 ML with PANTOPRAZOLE SODIUM 80 MG IV PRN ×2 (10:17)
[2019-05-16] MEDS: THIAMINE HCL 100 MG TABLET PO SCH ×2 (10:35→10:51)
[2019-05-16] MEDS: GUAIFENESIN 600 MG TABLET.SA PO SCH ×3 (10:35→21:36)
[2019-05-16] MEDS: CYANOCOBALAMIN (VITAMIN B-12) INJ 1000 MCG/1 ML VIAL IM SCH (10:35)
[2019-05-16] MEDS ORDERED: TIOTROPIUM BROMIDE DPI 5 CAP/KIT (18 MCG/CAP) IH SCH (12:00)
[2019-05-16] MEDS ORDERED: DIAZEPAM INJ 10 MG/2 ML DISP.SYRIN IV SCH (14:00)
[2019-05-16] MEDS: DIAZEPAM INJ 10 MG/2 ML DISP.SYRIN IV SCH ×2 (14:27→21:56)
--- NOTE | 2019-05-16 15:32 | PDOC TRANSFER SUMMARY ---
General Admission Date/PCP: 05/15/19 15:15 SAMMI SARABIA MD - Transfer Diagnosis (1) GI bleed Is this a current diagnosis for this admission?: Yes (2) Alcohol withdrawal Is this a current diagnosis for this admission?: Yes (3) Alcoholic liver disease Is this a current diagnosis for this admission?: Yes (4) Abdominal tightness Is this a current diagnosis for this admission?: Yes (5) History of asthma Is this a current diagnosis for this admission?: Yes (6) ETOH abuse Is this a current diagnosis for this admission?: Yes (7) Tobacco abuse Is this a current diagnosis for this admission?: Yes (8) Anemia Is this a current diagnosis for this admission?: Yes - Transfer Medications Home Medications: No Home Medications 05/15/19 Transfer Medications: Current Medications Albuterol/Ipratropium (Duoneb 3 Ml Ampul) 3 ml NEB RTQ8 GAIL Stop: 06/15/19 15:59 Cyanocobalamin (Vitamin B-12 Inj 1000 Mcg/1 Ml Vial) 1,000 mcg IM DAILY GAIL Stop: 06/14/19 20:59 Last Admin: 05/16/19 10:35 Dose: 1,000 mcg Documented by: Diazepam (Valium Inj 10 Mg/2 Ml Disp.Syrin) 5 mg IV Q8 [facility] Stop: 05/23/19 13:59 Last Admin: 05/16/19 14:27 Dose: 5 mg Documented by: Guaifenesin (Mucinex Sr 600 Mg Tablet.Sa) 1,200 mg PO Q12 GAIL Stop: 06/14/19 21:59 Last Admin: 05/16/19 10:50 Dose: Not Given Documented by: Dextrose/Sodium Chloride (D5ns 1000 Ml Iv Soln) 1,000 mls @ 60 mls/hr IV CONTINUOUS PRN PRN Reason: THIS MED IS NOT "PRN" Stop: 06/14/19 15:13 Last Infusion: 05/16/19 04:57 Dose: 60 mls/hr Documented by: Octreotide Acetate 500 mcg/ (Sodium Chloride) 500 mls @ 50 mls/hr IV CONTINUOUS PRN PRN Reason: THIS MED IS NOT "PRN" Stop: 06/14/19 23:40 Last Admin: 05/16/19 04:56 Dose: 50 mcg/hr, 50 mls/hr Documented by: Pantoprazole Sodium 80 mg/ (Sodium Chloride) 100 mls @ 10 mls/hr IV CONTINUOUS PRN PRN Reason: THIS MED IS NOT "PRN" Stop: 05/23/19 10:16 Lorazepam (Ativan Inj 2 Mg/1 Ml Vial) 2 mg IV Q2HP PRN PRN Reason: ANXIETY/AGITATION Stop: 05/23/19 07:21 Multivit/Ca Carb/B Cmplx/FA/Prenat (Nephrocaps Multiple Vitamin Capsule) 1 cap PO ACSUPPER GAIL Stop: 06/14/19 15:59 Last Admin: 05/15/19 18:40 Dose: 1 cap Documented by: Sodium Chloride (Saline Flush 2.5 Ml Monoject Prefil Syrin) 2.5 ml IV Q8 GAIL Stop: 06/14/19 21:59 Last Admin: 05/16/19 14:27 Dose: 2.5 ml Documented by: Thiamine HCl (Thiamine 100 Mg Tablet) 100 mg PO DAILY GAIL Stop: 06/14/19 20:59 Last Admin: 05/16/19 10:51 Dose: Not Given Documented by: Tiotropium Reddick (Spiriva Handihaler 5 Cap/Kit (18 Mcg/Cap)) 1 cap IH DAILY GAIL Stop: 06/15/19 11:59 Last Admin: 05/16/19 14:27 Dose: Not Given Documented by: - Allergies Allergies/Adverse Reactions: Penicillins Allergy (Unknown, Verified 12/31/17 18:04) shrimp Allergy (Verified 12/31/17 18:04) strawberry Allergy (Verified 12/31/17 18:04) Hospital Course Hospital Course: Patient is a 58 year-old with history of heavy chronic daily EtOH abuse, who drinks about 80 ounces of beer daily presented to ED complaining of abdominal tightness, shortness of breath. CT of abdomen and pelvis showed severe ascites, CBC showed hemoglobin of macrocytic anemia, thrombocytopenia, elevated T bili, elevated INR and guaiac positive stool. Patient was admitted to telemetry, surgery was consulted for possible upper GI endoscopy. Unfortunately GI services are only available once per week on Tuesdays here at [facility] with limited resources. Due to the fact that patient has severe cirrhosis and is coagulopathic and may have variceal bleeding, surgery recommended for patient to be transferred to tertiary center where GI and IR services are readily available in case patient needs either TIPS or variceal banding. Meanwhile patient started to have alcohol withdrawal and was started on alcohol withdrawal protocols. H&H was monitored and patient is status post 2 PRBC transfusions. Vitals remained stable at the time of transfer. I have contacted [facility] and to talked Dr Leno who has graciously accepted the patient under her care. Physical Exam Vital Signs: Temp Pulse Resp BP Pulse Ox 97.4 F 84 16 128/70 H 95 05/16/19 12:25 05/16/19 12:25 05/16/19 12:25 05/16/19 12:25 05/16/19 12:25 Intake & Output 05/15/19 05/16/19 05/17/19 06:59 06:59 06:59 Intake Total 2311 Balance 2311 Weight 60.7 kg Results Laboratory Results: 05/16/19 08:17 05/16/19 08:17 05/15/19 05/15/19 05/15/19 12:03 12:03 14:10 WBC RBC Hgb Hct MCV MCH MCHC RDW Plt Count Sodium Potassium Chloride Carbon Dioxide Anion Gap BUN Creatinine Est GFR ( Amer) Glucose Calcium Total Bilirubin AST Alkaline Phosphatase Ammonia 14.8 Total Protein Cancelled Albumin Blood Type O POSITIVE Antibody Screen NEGATIVE 05/15/19 05/16/19 05/16/19 22:14 08:17 08:17 WBC 4.2 4.2 RBC 1.90 L 2.56 L Hgb 7.2 L 9.2 L Hct 20.7 L 26.8 L MCV 109 H 105 H D MCH 37.8 H 35.9 H MCHC 34.7 34.3 RDW 15.1 H 20.4 H Plt Count 44 L 51 L Sodium 135.5 L Potassium 4.1 Chloride 106 Carbon Dioxide 23 Anion Gap 7 BUN 6 L Creatinine 0.79 Est GFR ( Amer) > 60 Glucose 90 Calcium 7.9 L Total Bilirubin 3.8 H AST 131 H Alkaline Phosphatase 163 H Ammonia Total Protein 7.2 Albumin 2.6 L Blood Type Antibody Screen Impressions: Abdomen Ultrasound 05/15/19 00:00 IMPRESSION: ASCITES EVALUATION ABOVE. Abdomen/Pelvis CT 05/15/19 11:29 IMPRESSION: Moderate volume ascites without obvious etiology.
[2019-05-16] MEDS: IPRATROPIUM/ALBUTEROL 0.5-2.5 MG/3 ML AMPUL NEB SCH (16:37)
[2019-05-16 16:40] LABS: HEMATOCRIT 27.7 % (37.9-51.0); HEMOGLOBIN 9.5 g/dL (13.5-17.0); MEAN CORPUSCULAR HEMOGLOBIN 35.8 pg (27.0-33.4); MEAN CORPUSCULAR HGB CONC 34.3 g/dL (32.0-36.0); MEAN CORPUSCULAR VOLUME 104 fl (80-97); RED BLOOD COUNT 2.65 10^6/uL (4.35-5.55); RED CELL DISTRIBUTION WIDTH 20.8 % (11.5-14.0); WHITE BLOOD COUNT 3.9 10^3/uL (4.0-10.5)
[2019-05-16 17:02] LABS: PLATELET COUNT 47 10^3/uL (150-450)
[2019-05-16] MEDS: FOLIC ACID/VITAMIN B COMP W-C CAPSULE PO SCH (21:36)
[2019-05-17] MEDS: IPRATROPIUM/ALBUTEROL 0.5-2.5 MG/3 ML AMPUL NEB SCH (00:06)
[2019-05-17] MEDS: LORAZEPAM INJ 2 MG/1 ML VIAL IV PRN (00:20)
[2019-05-17 02:36] VITALS: BP 154/69
== END 2019-05-17 02:34 | disposition short-term general hospital (02) | DRG 377 ==
LOC: ER 11:13 → EH 14:02 → OBSVTOIN 15:15 → 4S 17:08
PROVIDERS: ADMIT Internal Medicine; ATTEND Internal Medicine
PROC: 30233N1 Transfusion of Nonautologous Red Blood Cells into Peripheral Vein, Percutaneous Approach (ICD-10-PCS; principal; 2019-05-16)
DX: K29.21 Alcoholic gastritis with bleeding (principal); I85.11 Secondary esophageal varices with bleeding; F10.231 Alcohol dependence with withdrawal delirium; F17.210 Nicotine dependence, cigarettes, uncomplicated; K70.31 Alcoholic cirrhosis of liver with ascites; J44.9 Chronic obstructive pulmonary disease, unspecified; Z96.641 Presence of right artificial hip joint; D50.9 Iron deficiency anemia, unspecified; D69.6 Thrombocytopenia, unspecified; Z78.1 Physical restraint status; Z88.0 Allergy status to penicillin; Z91.013 Allergy to seafood; Z91.018 Allergy to other foods; Z87.01 Personal history of pneumonia (recurrent)
CPT/HCPCS: 36415; 36430; 74177; 76705; 80053; 81001; 82140; 83690; 85025; 85027; 85610; 86850; 86900; 86901; 86920; 93005; 93010; 94640; 96361; 96374; 96375; 99291; J2060; J2270; J2354; J2405; J3360; J3420; J3490; J7030; J7040; J7042; J7050; J7620; P9016; S0164

== ENCOUNTER → 2019-06-03 | Outpatient (CLI) | payer MEDICAID ==
[2019-06-03 10:10] LABS: ANION GAP 8 (5-19); BLOOD UREA NITROGEN 7 mg/dL (7-20); CALCIUM 8.8 mg/dL (8.4-10.2); CARBON DIOXIDE 25 mmol/L (22-30); CHLORIDE 106 mmol/L (98-107); GLUCOSE 132 mg/dL (75-110); POTASSIUM 3.7 mmol/L (3.6-5.0)
== END ==
LOC: OD 09:24
PROVIDERS: ATTEND Family Medicine Geriatric Medicine
DX: R18.8 Other ascites (principal); Z79.899 Other long term (current) drug therapy
CPT/HCPCS: 36415; 80048; 82140

== ENCOUNTER 2019-06-05 18:33 | Emergency (ER) | payer MEDICAID ==
[2019-06-05] MEDS ORDERED: ASPIRIN 81 MG TABLET, CHEWABLE PO ONE (19:04)
--- NOTE | 2019-06-05 19:08 | ER Document Report ---
ED Medical Screen (RME) - General Chief Complaint: Chest Pain Stated Complaint: ELEVATED HEARTRATE/CHEST PAIN Time Seen by Provider: 06/05/19 19:04 Primary Care Provider: SAMMI SARABIA MD [Primary Care Provider] - Follow up as needed Mode of Arrival: Ambulatory Information source: Patient Notes: 58-year-old male presents to ED for complaint of chest pain right in the center of the chest. He states is like a heartbeat right and center of his chest. He started last night and is continued today. He states he sometimes has shortness of breath. He states he is never had this pain before. He states he does have high cholesterol and he does have bleeding somewhere but he does not know where. He states he was told he was not allowed to have aspirin for any reason. Vital signs are stable at this time. Will do chest pain protocol except for the aspirin. I have greeted and performed a rapid initial assessment of this patient. A comprehensive ED assessment and evaluation of the patient, analysis of test results and completion of medical decision making process will be conducted by an additional ED providers. TRAVEL OUTSIDE OF THE [place] IN LAST 30 DAYS: No - Related Data Allergies/Adverse Reactions: Penicillins Allergy (Unknown, Verified 12/31/17 18:04) shrimp Allergy (Verified 12/31/17 18:04) strawberry Allergy (Verified 12/31/17 18:04) Past Medical History - Past Medical History Cardiac Medical History: Denies: Hx Coronary Artery Disease, Hx Heart Attack, Hx Hypertension Pulmonary Medical History: Reports: Hx Asthma, Hx Bronchitis, Hx COPD, Hx Pneumonia - SEVERAL TIMES Neurological Medical History: Denies: Hx Cerebrovascular Accident, Hx Seizures Renal/ Medical History: Denies: Hx Peritoneal Dialysis Musculoskeltal Medical History: Denies Hx Arthritis Past Surgical History: Reports: Hx Orthopedic Surgery - right hip replacement - Immunizations Immunizations up to date: No Hx Diphtheria, Pertussis, Tetanus Vaccination: Yes Doctor's Discharge - Discharge Referrals: SAMIM SARABIA MD [Primary Care Provider] - Follow up as needed
[2019-06-05 19:12] VITALS: BP 129/78
--- NOTE | 2019-06-05 19:39 | RADIOLOGY REPORT (SQ) ---
EXAM DESCRIPTION: CHEST 2 VIEWS COMPLETED DATE/TIME: 06/05/2019 7:19 pm REASON FOR STUDY: chest pain COMPARISON: 10/02/2018 EXAM PARAMETERS: NUMBER OF VIEWS: two views TECHNIQUE: Digital Frontal and Lateral radiographic views of the chest acquired. RADIATION DOSE: NA LIMITATIONS: none FINDINGS: LUNGS AND PLEURA: Re- demonstration of emphysematous change with diffusely increased inter stitial markings. No focal consolidation or pleural effusion. No pneumothorax. MEDIASTINUM AND HILAR STRUCTURES: No masses or contour abnormalities. HEART AND VASCULAR STRUCTURES: Heart normal size. No evidence for failure. BONES: No acute findings. HARDWARE: None in the chest. OTHER: No other significant finding. IMPRESSION: Stable radiographic appearance of the chest demonstrating emphysematous changes. TECHNICAL DOCUMENTATION: JOB ID: [id number] [employer]- All Rights Reserved Reading location - IP/workstation name: [email or web address]
[2019-06-05 20:14] LABS: ABSOLUTE BASOPHILS # (AUTO) 0.1 10^3/uL (0.0-0.2); ABSOLUTE EOSINOPHILS # (AUTO) 0.2 10^3/uL (0.0-0.6); ABSOLUTE MONOCYTES (AUTO) 0.5 10^3/uL (0.1-1.4); ABSOLUTE NEUT (AUTO) 1.5 10^3/uL (1.7-8.2); BASOPHILS % (AUTO) 1.5 % (0-2); EOSINOPHILS % (AUTO) 3.8 % (0-6); HEMOGLOBIN 9.3 g/dL (13.5-17.0); INTERNATIONAL RATION (INR) 1.84; LYMPHOCYTES % (AUTO) 46.2 % (13-45); MEAN CORPUSCULAR HEMOGLOBIN 35.6 pg (27.0-33.4); MEAN CORPUSCULAR HGB CONC 33.3 g/dL (32.0-36.0); MEAN CORPUSCULAR VOLUME 107 fl (80-97); MONOCYTES % (AUTO) 12.7 % (3-13); PARTIAL THROMBOPLASTIN TIME 45.4 SEC (23.5-35.8); PLATELET COUNT 125 10^3/uL (150-450); PROTHROMBIN TIME 21.5 SEC (11.4-15.4); RED BLOOD COUNT 2.62 10^6/uL (4.35-5.55); RED CELL DISTRIBUTION WIDTH 16.4 % (11.5-14.0); SEGMENTED NEUTROPHILS % (AUTO) 35.8 % (42-78); TOTAL CELLS COUNTED % (AUTO) 100 %; WHITE BLOOD COUNT 4.2 10^3/uL (4.0-10.5)
[2019-06-05 20:29] LABS: ALBUMIN 3.1 g/dL (3.5-5.0); ALKALINE PHOSPHATASE 150 U/L (38-126); ANION GAP 8 (5-19); ASPARTATE AMINO TRANSFERASE 53 U/L (17-59); BILIRUBIN,TOTAL 1.7 mg/dL (0.2-1.3); BLOOD UREA NITROGEN 6 mg/dL (7-20); CALCIUM 8.5 mg/dL (8.4-10.2); CARBON DIOXIDE 26 mmol/L (22-30); CHLORIDE 105 mmol/L (98-107); CREATINE KINASE 86 U/L (55-170); GLUCOSE 78 mg/dL (75-110); POTASSIUM 3.7 mmol/L (3.6-5.0); TOTAL PROTEIN 8.3 g/dL (6.3-8.2)
[2019-06-05 20:38] LABS: CREATINE KINASE MB 0.48 ng/mL (<4.55); NT PRO BNP 115 pg/mL (5-900); TROPONIN I < 0.012 ng/mL
--- NOTE | 2019-06-07 00:26 | EKG REPORT ---
SEVERITY:- ABNORMAL ECG - SINUS RHYTHM CONSIDER LEFT VENTRICULAR HYPERTROPHY BORDERLINE PROLONGED QT INTERVAL : Confirmed by: Chente Mccollum 07-Jun-2019 00:25:36
== END 2019-06-05 22:51 | disposition left against medical advice (07) ==
LOC: ER 18:33
DX: R07.9 Chest pain, unspecified (principal); J44.9 Chronic obstructive pulmonary disease, unspecified; R06.02 Shortness of breath; Z87.01 Personal history of pneumonia (recurrent); Z88.0 Allergy status to penicillin; Z91.013 Allergy to seafood; Z91.018 Allergy to other foods; Z53.20 Procedure and treatment not carried out because of patient's decision for unspecified reasons
CPT/HCPCS: 36415; 71046; 80053; 82550; 82553; 83735; 83880; 84443; 84484; 85025; 85610; 85730; 93005; 93010; 99285

== ENCOUNTER → 2019-06-22 | Outpatient (CLI) | payer MEDICAID ==
[2019-06-22 09:48] LABS: ANION GAP 7 (5-19); BLOOD UREA NITROGEN 7 mg/dL (7-20); CALCIUM 8.7 mg/dL (8.4-10.2); CARBON DIOXIDE 28 mmol/L (22-30); CHLORIDE 105 mmol/L (98-107); GLUCOSE 85 mg/dL (75-110); POTASSIUM 4.1 mmol/L (3.6-5.0)
== END ==
LOC: OD 08:07
PROVIDERS: ATTEND Family Medicine Geriatric Medicine
DX: K70.31 Alcoholic cirrhosis of liver with ascites (principal); Z79.899 Other long term (current) drug therapy; R73.9 Hyperglycemia, unspecified; N00.0 Acute nephritic syndrome with minor glomerular abnormality; R60.9 Edema, unspecified
CPT/HCPCS: 36415; 80048; 82947; 82950; 83036; 83735

== ENCOUNTER → 2019-07-22 | Outpatient (CLI) | payer MEDICARE, MEDICAID | LOC: OD 08:18 | PROVIDERS: ATTEND Family Medicine Geriatric Medicine | DX: K70.31 Alcoholic cirrhosis of liver with ascites (principal); E83.42 Hypomagnesemia; Z79.899 Other long term (current) drug therapy | CPT/HCPCS: 36415; 82140; 83735 ==

== ENCOUNTER → 2019-08-25 | Outpatient (CLI) | payer MEDICARE, MEDICAID ==
[2019-08-25 09:20] LABS: ANION GAP 11 (5-19); BLOOD UREA NITROGEN 8 mg/dL (7-20); CALCIUM 9.5 mg/dL (8.4-10.2); CARBON DIOXIDE 24 mmol/L (22-30); CHLORIDE 106 mmol/L (98-107); GLUCOSE 91 mg/dL (75-110); POTASSIUM 4.6 mmol/L (3.6-5.0)
== END ==
LOC: OD 08:10
PROVIDERS: ATTEND Family Medicine Geriatric Medicine
DX: K70.31 Alcoholic cirrhosis of liver with ascites (principal); E83.42 Hypomagnesemia; R73.02 Impaired glucose tolerance (oral); Z79.899 Other long term (current) drug therapy
CPT/HCPCS: 36415; 80048; 82140; 83735

== ENCOUNTER 2019-08-27 18:34 | Emergency (ER) | payer MEDICARE, MEDICAID ==
[2019-08-27 18:45] VITALS: BP 122/69
--- NOTE | 2019-08-27 19:40 | ER Document Report ---
ED Medical Screen (RME) - General Chief Complaint: Chest Pain Stated Complaint: CHEST PAINS Time Seen by Provider: 08/27/19 19:35 Primary Care Provider: SAMMI SARABIA MD [Primary Care Provider] - Follow up as needed Mode of Arrival: Ambulatory Information source: Patient Notes: Patient presents complaining of chest pain and palpitations that started around 3 PM. Patient states he has pain when his heart skips a beat. Patient reports occasional shortness of breath with occasional cough. Patient denies any nausea or vomiting. Patient denies any lightheadedness or dizziness. Patient does report a history of GERD and cirrhosis. Patient reports taking 3 aspirin at home. I have greeted and performed a rapid initial assessment of this patient. A comprehensive ED assessment and evaluation of the patient, analysis of test results and completion of the medical decision making process will be conducted by additional ED providers. TRAVEL OUTSIDE OF THE [place] IN LAST 30 DAYS: No - Related Data Allergies/Adverse Reactions: Penicillins Allergy (Unknown, Verified 12/31/17 18:04) shrimp Allergy (Verified 12/31/17 18:04) strawberry Allergy (Verified 12/31/17 18:04) Home Medications: advil pm as needed. abc complete for senior men. prilosec 20mg po daily. asa 81 mg po daily. aldactone 50mg po daily. magox 400mg po daily. vit B 1 po daily Past Medical History - Social History Chew tobacco use (# tins/day): No Frequency of alcohol use: hx but quit "years ago" Drug Abuse: None - Past Medical History Cardiac Medical History: Denies: Hx Coronary Artery Disease, Hx Heart Attack, Hx Hypertension Pulmonary Medical History: Reports: Hx Asthma, Hx Bronchitis, Hx COPD, Hx Pneumonia - SEVERAL TIMES Neurological Medical History: Denies: Hx Cerebrovascular Accident, Hx Seizures Renal/ Medical History: Denies: Hx Peritoneal Dialysis Musculoskeltal Medical History: Denies Hx Arthritis Past Surgical History: Reports: Hx Orthopedic Surgery - right hip replacement - Immunizations Immunizations up to date: No Hx Diphtheria, Pertussis, Tetanus Vaccination: Yes Physical Exam - Vital signs Vitals: Temp Pulse Resp BP Pulse Ox 98.7 F 88 16 122/69 100 08/27/19 18:43 08/27/19 18:43 08/27/19 18:43 08/27/19 18:43 08/27/19 18:43 - Respiratory Respiratory status: No respiratory distress Chest status: Tender Chest palpation: Tender - Cardiovascular Rhythm: Regular Heart sounds: S1 appreciated, S2 appreciated Murmur: No Course - Vital Signs Vital signs: Temp Pulse Resp BP Pulse Ox 98.7 F 88 16 122/69 100 08/27/19 18:43 08/27/19 18:43 08/27/19 18:43 08/27/19 18:43 08/27/19 18:43 Doctor's Discharge - Discharge Referrals: SAMMI SARABIA MD [Primary Care Provider] - Follow up as needed
[2019-08-27 20:19] LABS: ABSOLUTE BASOPHILS # (AUTO) 0.1 10^3/uL (0.0-0.2); ABSOLUTE EOSINOPHILS # (AUTO) 0.2 10^3/uL (0.0-0.6); ABSOLUTE MONOCYTES (AUTO) 0.6 10^3/uL (0.1-1.4); ABSOLUTE NEUT (AUTO) 1.7 10^3/uL (1.7-8.2); BASOPHILS % (AUTO) 1.1 % (0-2); EOSINOPHILS % (AUTO) 5.4 % (0-6); HEMATOCRIT 31.4 % (37.9-51.0); HEMOGLOBIN 10.9 g/dL (13.5-17.0); LYMPHOCYTES % (AUTO) 43.8 % (13-45); MEAN CORPUSCULAR HEMOGLOBIN 34.6 pg (27.0-33.4); MEAN CORPUSCULAR HGB CONC 34.7 g/dL (32.0-36.0); MEAN CORPUSCULAR VOLUME 100 fl (80-97); PLATELET COUNT 106 10^3/uL (150-450); RED BLOOD COUNT 3.14 10^6/uL (4.35-5.55); SEGMENTED NEUTROPHILS % (AUTO) 36.7 % (42-78); TOTAL CELLS COUNTED % (AUTO) 100 %; WHITE BLOOD COUNT 4.6 10^3/uL (4.0-10.5)
--- NOTE | 2019-08-27 20:36 | RADIOLOGY REPORT (SQ) ---
EXAM DESCRIPTION: X-RAY CHEST 2 VIEWS CLINICAL HISTORY: 58 years Male cp COMPARISON: None TECHNIQUE: PA and lateral chest x-rays at 2004 hours on 08/27/2019. FINDINGS: The lungs are mildly overinflated. There are bullous emphysematous changes, most prominent in the upper lobes. There is bilateral peribronchial cuffing, most noticeable in the left infrahilar region. The costophrenic sulci are sharp. No pneumothorax. The heart is normal in size. No pulmonary vascular congestion. No acute bony abnormalities are seen. IMPRESSION: Bullous emphysema. Peribronchial cuffing can be related to chronic bronchitis or bronchiolitis.
[2019-08-27 20:38] LABS: ALBUMIN 3.6 g/dL (3.5-5.0); ALKALINE PHOSPHATASE 192 U/L (38-126); ANION GAP 8 (5-19); ASPARTATE AMINO TRANSFERASE 47 U/L (17-59); BILIRUBIN,DIRECT 0.4 mg/dL (0.0-0.4); BILIRUBIN,TOTAL 0.9 mg/dL (0.2-1.3); BLOOD UREA NITROGEN 10 mg/dL (7-20); CALCIUM 9.2 mg/dL (8.4-10.2); CARBON DIOXIDE 26 mmol/L (22-30); CHLORIDE 105 mmol/L (98-107); GLUCOSE 83 mg/dL (75-110); POTASSIUM 4.6 mmol/L (3.6-5.0)
[2019-08-27 20:49] LABS: NT PRO BNP 30 pg/mL (<125)
[2019-08-27 20:50] LABS: TROPONIN I < 0.012 ng/mL
--- NOTE | 2019-08-27 22:00 | EKG REPORT ---
SEVERITY:- ABNORMAL ECG - SINUS RHYTHM CONSIDER LEFT VENTRICULAR HYPERTROPHY : Confirmed by: Chente Mccollum 27-Aug-2019 21:59:39
--- NOTE | 2019-08-27 23:40 | ER Document Report ---
ED General - General Chief Complaint: Chest Pain Stated Complaint: CHEST PAINS Time Seen by Provider: 08/27/19 19:35 Primary Care Provider: SAMMI SARABIA MD [Primary Care Provider] - Follow up as needed Mode of Arrival: Ambulatory TRAVEL OUTSIDE OF THE [place] IN LAST 30 DAYS: No - HPI Onset: Other - 1500 today Onset/Duration: Sudden Associated symptoms: Shortness of breath, Other - Skipped heartbeats and cough - Related Data Allergies/Adverse Reactions: Penicillins Allergy (Unknown, Verified 12/31/17 18:04) shrimp Allergy (Verified 12/31/17 18:04) strawberry Allergy (Verified 12/31/17 18:04) Home Medications: advil pm as needed. abc complete for senior men. prilosec 20mg po daily. asa 81 mg po daily. aldactone 50mg po daily. magox 400mg po daily. vit B 1 po daily Past Medical History - General Information source: Patient - Social History Smoking Status: Current Every Day Smoker Cigarette use (# per day): Yes Chew tobacco use (# tins/day): No Smoking Education Provided: Yes Frequency of alcohol use: hx but quit "years ago" Drug Abuse: None Family History: Reviewed & Not Pertinent Patient has suicidal ideation: No Patient has homicidal ideation: No - Past Medical History Cardiac Medical History: Denies: Hx Coronary Artery Disease, Hx Heart Attack, Hx Hypertension Pulmonary Medical History: Reports: Hx Asthma, Hx Bronchitis, Hx COPD, Hx Pneumonia - SEVERAL TIMES Neurological Medical History: Denies: Hx Cerebrovascular Accident, Hx Seizures Renal/ Medical History: Denies: Hx Peritoneal Dialysis Musculoskeletal Medical History: Denies Hx Arthritis Past Surgical History: Reports: Hx Orthopedic Surgery - right hip replacement - Immunizations Immunizations up to date: No Hx Diphtheria, Pertussis, Tetanus Vaccination: Yes Physical Exam - Vital signs Vitals: Temp Pulse Resp BP Pulse Ox 98.7 F 88 16 122/69 100 08/27/19 18:43 08/27/19 18:43 08/27/19 18:43 08/27/19 18:43 08/27/19 18:43 Course - Vital Signs Vital signs: Temp Pulse Resp BP Pulse Ox 98.7 F 88 16 122/69 100 08/27/19 18:43 08/27/19 18:43 08/27/19 18:43 08/27/19 18:43 08/27/19 18:43 - Laboratory Result Diagrams: 08/27/19 19:57 08/27/19 19:57 Laboratory results interpreted by me: 08/27/19 08/27/19 19:57 19:57 RBC 3.14 L Hgb 10.9 L Hct 31.4 L MCV 100 H MCH 34.6 H Plt Count 106 L Seg Neutrophils % 36.7 L Alkaline Phosphatase 192 H Total Protein 9.0 H Discharge - Discharge Clinical Impression: Chest pain Qualifiers: Chest pain type: unspecified Qualified Code(s): R07.9 - Chest pain, unspecified Disposition: ELOPED Referrals: SAMMI SARABIA MD [Primary Care Provider] - Follow up as needed
== END 2019-08-27 23:05 | disposition left against medical advice (07) ==
LOC: ER 18:34
DX: R07.9 Chest pain, unspecified (principal); R06.02 Shortness of breath; F17.210 Nicotine dependence, cigarettes, uncomplicated; Z88.0 Allergy status to penicillin; Z91.013 Allergy to seafood; Z96.641 Presence of right artificial hip joint
CPT/HCPCS: 36415; 71046; 80053; 82140; 83880; 84484; 85025; 93005; 93010; 99281

== ENCOUNTER → 2019-09-26 | Outpatient (CLI) | payer MEDICARE, MEDICAID | LOC: OD 08:24 | PROVIDERS: ATTEND Family Medicine Geriatric Medicine | DX: E83.42 Hypomagnesemia (principal); K70.31 Alcoholic cirrhosis of liver with ascites; Z79.899 Other long term (current) drug therapy | CPT/HCPCS: 36415; 82140; 83735 ==

== ENCOUNTER 2019-10-15 19:00 | Emergency (ER) | payer MEDICARE, MEDICAID ==
[2019-10-15 19:27] VITALS: BP 129/70
[2019-10-15] MEDS ORDERED: BENZONATATE 100 MG CAPSULE PO ONE (19:33)
[2019-10-15] MEDS ORDERED: IBUPROFEN 800 MG TABLET PO ONE (19:33)
--- NOTE | 2019-10-15 19:34 | ER Document Report ---
ED Medical Screen (RME) - General Chief Complaint: Cold Symptoms Stated Complaint: HEADACHE,COUGH,CONGESTION Time Seen by Provider: 10/15/19 19:28 Primary Care Provider: SAMMI SARABIA MD [Primary Care Provider] - Follow up as needed TRAVEL OUTSIDE OF THE [place] IN LAST 30 DAYS: No - Related Data Allergies/Adverse Reactions: Penicillins Allergy (Unknown, Verified 12/31/17 18:04) shrimp Allergy (Verified 12/31/17 18:04) strawberry Allergy (Verified 12/31/17 18:04) Home Medications: Magoxide. Omprazole. Benzonatate. Spironolactone Past Medical History - Social History Chew tobacco use (# tins/day): No Frequency of alcohol use: None Drug Abuse: None - Past Medical History Cardiac Medical History: Denies: Hx Coronary Artery Disease, Hx Heart Attack, Hx Hypertension Pulmonary Medical History: Reports: Hx Asthma, Hx Bronchitis, Hx COPD, Hx Pneumonia - SEVERAL TIMES Neurological Medical History: Denies: Hx Cerebrovascular Accident, Hx Seizures Renal/ Medical History: Denies: Hx Peritoneal Dialysis Musculoskeltal Medical History: Denies Hx Arthritis Past Surgical History: Reports: Hx Orthopedic Surgery - right hip replacement - Immunizations Immunizations up to date: No Hx Diphtheria, Pertussis, Tetanus Vaccination: Yes Physical Exam - Vital signs Vitals: Temp Pulse Resp BP Pulse Ox 99.4 F 119 H 18 129/70 H 98 10/15/19 19:22 10/15/19 19:22 10/15/19 19:22 10/15/19 19:22 10/15/19 19:22 Course - Vital Signs Vital signs: Temp Pulse Resp BP Pulse Ox 99.4 F 119 H 18 129/70 H 98 10/15/19 19:22 10/15/19 19:22 10/15/19 19:22 10/15/19 19:22 10/15/19 19:22 Doctor's Discharge - Discharge Referrals: SAMMI SARABIA MD [Primary Care Provider] - Follow up as needed
--- NOTE | 2019-10-15 19:38 | ER Document Report ---
HPI - HPI Time Seen by Provider: 10/15/19 19:28 Pain Level: 4 Notes: Patient is a 58-year-old male with history of liver disease and COPD with ongoing tobacco abuse who presents to the ED complaining of nasal congestion/discharge, dry nonproductive cough, fever, body ache 1 day. Patient states that he does have some rib pain when he coughs on the right lower anterior side. Patient states that he is still eating and drinking without difficulties, but does have a decreased p.o. intake. He is still urinating normally having normal bowel movements. He denies any significant past medical history including cardiopulmonary history and immunocompromised conditions. Denies any current headache, neck pain, sore throat, chest pain, palpitations, syncope, shortness of breath, wheeze, dyspnea, abdominal pain, nausea/vomiting/diarrhea, urinary retention, dysuria, hematuria, or rash. - ROS Systems Reviewed and Negative: Yes All other systems reviewed and negative - REPRODUCTIVE Reproductive: DENIES: : Past Medical History - Social History Smoking Status: Current Every Day Smoker Chew tobacco use (# tins/day): No Frequency of alcohol use: None Drug Abuse: None Family History: Reviewed & Not Pertinent Patient has suicidal ideation: No Patient has homicidal ideation: No - Past Medical History Cardiac Medical History: Denies: Hx Coronary Artery Disease, Hx Heart Attack, Hx Hypertension Pulmonary Medical History: Reports: Hx Asthma, Hx Bronchitis, Hx COPD, Hx Pneumonia - SEVERAL TIMES Neurological Medical History: Denies: Hx Cerebrovascular Accident, Hx Seizures Renal/ Medical History: Denies: Hx Peritoneal Dialysis Musculoskeletal Medical History: Denies Hx Arthritis Past Surgical History: Reports: Hx Orthopedic Surgery - right hip replacement - Immunizations Immunizations up to date: No Hx Diphtheria, Pertussis, Tetanus Vaccination: Yes Vertical Provider Document - CONSTITUTIONAL Agree With Documented VS: Yes Notes: PHYSICAL EXAMINATION: GENERAL: Well-appearing, well-nourished and in no acute distress. A&Ox4. HEAD: Atraumatic, normocephalic. EYES: Pupils equal round and reactive to light, extraocular movements intact, sclera anicteric, conjunctiva are normal. ENT: Nares patent and with clear discharge. oropharynx clear without exudates. No tonsilar hypertrophy or erythema. Moist mucous membranes. NECK: Normal range of motion, supple without lymphadenopathy Chest: + reproducible tenderness to palpation of the rt lower lateral/anterior rib area and reproducible with ROM. LUNGS: Breath sounds clear to auscultation bilaterally and equal. No wheezes rales or rhonchi. HEART: Regular rate and rhythm without murmurs, rubs, gallops. ABDOMEN: Soft, nontender, nondistended abdomen. No guarding, no rebound. Normal bowel sounds present. No CVA tenderness bilaterally. Pimentel negative. Musculoskeletal: FROM to passive/active. Strength 5+/5. Grace neg. No asymmetry to LE's. Extremities: No cyanosis, clubbing, or edema b/l. Peripheral pulses 2+. Capillary refill less than 3 seconds. NEUROLOGICAL: Normal speech, normal gait. PSYCH: Normal mood, normal affect. SKIN: Warm, Dry, normal turgor, no rashes or lesions noted. - INFECTION CONTROL TRAVEL OUTSIDE OF THE [place] IN LAST 30 DAYS: No Course - Re-evaluation Re-evalutation: 10/15/19 Patient is an afebrile, well-hydrated, 58-year-old male who presents to the ED with acute URI, suspect viral/influenza. Vitals are acceptable. PE is otherwise unremarkable. CXR/Ribs unremarkable. No further labs or imaging warranted at this time based on H&P. Pt does have a h/o COPD. Patient's lungs are clear to auscultation bilaterally without tachycardia, hypoxia, or tachypnea. Patient is tolerating p.o. without any difficulties. Thoroughly reviewed the risks, benefits, potential side effects, estimated cost without insurance with patient. After thorough review, patient requested/accepted Tamiflu at this time. Low suspicion for any meningitis, sepsis, peritonsillar/pharyngeal abscess, respiratory compromise, severe dehydration, or other emergent systemic condition at this time. Patient is aware this condition can change from initial presentation and he needs to monitor symptoms closely. Conservative measures otherwise for symptoms. Recheck with your PCM in 3-5 days. Return to the ED with any worsening/concerning symptoms otherwise as reviewed in discharge. Patient is in agreement. - Vital Signs Vital signs: Temp Pulse Resp BP Pulse Ox 99.4 F 119 H 18 129/70 H 98 10/15/19 19:22 10/15/19 19:22 10/15/19 19:22 10/15/19 19:22 10/15/19 19:22 Discharge - Discharge Clinical Impression: Acute URI Condition: Stable Disposition: HOME, SELF-CARE Instructions: Upper Respiratory Illness ([facility]) Additional Instructions: Maintain adequate fluid intake ibuprofen as needed every 4-6hrs for fever/body ache over the counter cold medication as needed for symptoms Humidified air may help Wash your hands regularly Wear a mask when coughing F/u: with your PCM in 3-5 days for a recheck Return to the ED with any fever, altered mental status/behavior, chest pain, palpitations, syncope, headache, neck pain/stiffness, shortness of breath, chest pains, wheezing, drooling, trouble swallowing/breathing, abdominal pain, n/v/d, rash, or worsening/concerning symptoms otherwise. Prescriptions: Benzonatate [Tessalon Perles 100 mg Capsule] 100 mg PO Q8HP PRN #15 capsule PRN Reason: Oseltamivir Phosphate [Tamiflu 75 mg Capsule] 75 mg PO BID #10 capsule Forms: Elevated Blood Pressure, Smoking Cessation Education Referrals: SAMMI SARABIA MD [Primary Care Provider] - 10/19/19
--- NOTE | 2019-10-15 20:25 | RADIOLOGY REPORT (SQ) ---
EXAM DESCRIPTION: XR RIBS UNILATERAL WITH CHEST COMPLETED DATE/TME: 10/15/2019 19:33 CLINICAL HISTORY: 58 years, Male, cough, rt lateral anterior lower rib pain COMPARISON: August 27, 2019 NUMBER OF VIEWS: 4 views of the ribs. Single view chest. TECHNIQUE: LIMITATIONS: None. FINDINGS: Mild chronic parenchymal lung change, no adverse change. No consolidation or edema. No effusion or pneumothorax. Emphysematous changes are again seen. Cardiac mediastinal silhouette is stable. No acute displaced right lateral rib fracture. IMPRESSION: No acute displaced right-sided rib fracture. Chronic parenchymal lung change, no adverse change copyright 2010 [employer]- All Rights Reserved
== END 2019-10-15 20:46 | disposition home or self-care (01) ==
LOC: ER 19:00
DX: J06.9 Acute upper respiratory infection, unspecified (principal); R09.89 Other specified symptoms and signs involving the circulatory and respiratory systems; R05 Cough; R50.9 Fever, unspecified; R07.81 Pleurodynia; J44.9 Chronic obstructive pulmonary disease, unspecified; F17.200 Nicotine dependence, unspecified, uncomplicated; Z87.01 Personal history of pneumonia (recurrent)
CPT/HCPCS: 99283; 71101; A9270 ×2

== ENCOUNTER → 2019-11-17 | Outpatient (CLI) | payer MEDICARE, MEDICAID ==
--- NOTE | 2019-11-17 14:35 | WOMENS IMAGING REPORT ---
EXAM DESCRIPTION: BILAT DIAGNOSTIC MAMMO W/CAD IMAGES COMPLETED DATE/TIME: 11/17/2019 12:31 pm REASON FOR STUDY: N62.0 BILAT DX N62 HYPERTROPHY OF BREAST COMPARISON: None. EXAM PARAMETERS: Standard craniocaudal and mediolateral oblique views of each breast recorded using digital acquisition. Read with the assistance of CAD: .[facility] - [employer] Electrician Manager Version 9.2 LIMITATIONS: None. FINDINGS: RIGHT BREAST MASSES: No suspicious masses. CALCIFICATIONS: No new or suspicious calcifications. ARCHITECTURAL DISTORTION: None. ASYMMETRY: None noted. OTHER: Increased diffuse breast tissue extends posterior to the nipple into the breast, comparable t o the left. Considerations for this finding includes gynecomastia. LEFT BREAST MASSES: No suspicious masses. CALCIFICATIONS: No new or suspicious calcifications. ARCHITECTURAL DISTORTION: None. ASYMMETRY: None noted. OTHER: Increased diffuse breast tissue extends posterior to the nipple into the breast, comparable t o the right breast. BREAST ULTRASOUND: TECHNIQUE: Static and dynamic grayscale images acquired of the right and left breast in the specific areas of clinical/mammographic concern. Selected color Doppler images recorded. ELASTOGRAPHY PERFORMED: No. LIMITATIONS: None. FINDINGS: MASS: The right and left breast were scanned from the 12 to 12 o'clock axes. Hypoechogenicity exten ds from the nipple into the breast bilaterally. These findings correlate to the bilateral breast sarah mogram. Considerations for these findings include gynecomastia. ELASTOGRAPHY CHARACTERISTICS: Not applicable. OTHER: No other significant finding. IMPRESSION: 1. The findings demonstrated on the mammogram and bilateral breast ultrasound examinati ons suggest bilateral gynecomastia. BREAST DENSITY: c. The breasts are heterogeneously dense, which may obscure small masses. BIRAD: ASSESSMENT: 2 Benign findings. RECOMMENDATION: 1. Clinical correlation and patient advised to follow-up with provider. COMMENT: The patient has been notified of the results by letter per MQSA requirements. Additional no tification policies are in place for contacting patient with suspicious or incomplete findings. Quality ID #225: The [employer] recommends an annual screening mammogram for women aged 40 years or over. This facility utilizes a reminder system to ensure that all patients receive reminder letters, and/or direct phone calls for appointments. This includes reminders for routine scr eening mammograms, diagnostic mammograms, or other Breast Imaging Interventions when appropriate. Th is patient will be placed in the appropriate reminder system. TECHNICAL DOCUMENTATION: FINDING NUMBER: (1) ASSESSMENT: (1) JOB ID: [id number] 2010 [employer]- All Rights Reserved Reading location - IP/workstation name: [email or web address]
--- NOTE | 2019-11-17 14:36 | WOMENS IMAGING REPORT ---
EXAM DESCRIPTION: U/S BREAST UNILATERAL, COMPL COMPLETE DATE/TIME: 11/17/2019 1:11 pm REASON FOR STUDY: LT BREAST LUMP N62 HYPERTROPHY OF BREAST FINDINGS: Please see combined report for performance of procedure and radiologic supervision and int erpretation. IMPRESSION: Please see combined report for performance of procedure and radiologic supervision and i nterpretation. Reading location - IP/workstation name: [email or web address]
--- NOTE | 2019-11-17 14:36 | WOMENS IMAGING REPORT ---
EXAM DESCRIPTION: U/S BREAST UNILATERAL, COMPL COMPLETE DATE/TIME: 11/17/2019 1:11 pm REASON FOR STUDY: RT BREAST LUMP N62 HYPERTROPHY OF BREAST FINDINGS: Please see combined report for performance of procedure and radiologic supervision and int erpretation. IMPRESSION: Please see combined report for performance of procedure and radiologic supervision and i nterpretation. Reading location - IP/workstation name: [email or web address]
== END ==
LOC: WI 12:00
PROVIDERS: ATTEND Family Medicine Geriatric Medicine
DX: N62 Hypertrophy of breast (principal)
CPT/HCPCS: 76641; 77066

== ENCOUNTER → 2020-01-25 | Outpatient (CLI) | payer MEDICARE, MEDICAID ==
[2020-01-25 09:26] LABS: ANION GAP 11 (5-19); BLOOD UREA NITROGEN 13 mg/dL (7-20); CALCIUM 9.1 mg/dL (8.4-10.2); CARBON DIOXIDE 23 mmol/L (22-30); CHLORIDE 105 mmol/L (98-107); GLUCOSE 118 mg/dL (75-110); POTASSIUM 4.3 mmol/L (3.6-5.0)
== END ==
LOC: OD 08:27
PROVIDERS: ATTEND Family Medicine Geriatric Medicine
DX: E83.42 Hypomagnesemia (principal); R74.0 Nonspecific elevation of levels of transaminase and lactic acid dehydrogenase [LDH]; Z79.899 Other long term (current) drug therapy
CPT/HCPCS: 36415; 80048; 82140; 83735

== ENCOUNTER → 2020-03-07 | Outpatient (CLI) | payer MEDICARE, MEDICAID ==
[2020-03-07 09:45] LABS: HEMATOCRIT 26.8 % (37.9-51.0); HEMOGLOBIN 8.4 g/dL (13.5-17.0); MEAN CORPUSCULAR HEMOGLOBIN 26.3 pg (27.0-33.4); MEAN CORPUSCULAR HGB CONC 31.4 g/dL (32.0-36.0); MEAN CORPUSCULAR VOLUME 84 fl (80-97); PLATELET COUNT 168 10^3/uL (150-450); RED BLOOD COUNT 3.21 10^6/uL (4.35-5.55); RED CELL DISTRIBUTION WIDTH 15.7 % (11.5-14.0); WHITE BLOOD COUNT 4.7 10^3/uL (4.0-10.5)
[2020-03-07 09:50] LABS: INTERNATIONAL RATION (INR) 1.29; PROTHROMBIN TIME 16.2 SEC (11.4-15.4)
[2020-03-07 10:17] LABS: ALBUMIN 3.9 g/dL (3.5-5.0); ALKALINE PHOSPHATASE 153 U/L (38-126); ANION GAP 6 (5-19); ASPARTATE AMINO TRANSFERASE 39 U/L (17-59); BILIRUBIN,TOTAL 0.3 mg/dL (0.2-1.3); BLOOD UREA NITROGEN 14 mg/dL (7-20); CALCIUM 9.1 mg/dL (8.4-10.2); CARBON DIOXIDE 24 mmol/L (22-30); CHLORIDE 107 mmol/L (98-107); GLUCOSE 99 mg/dL (75-110); POTASSIUM 4.8 mmol/L (3.6-5.0); TOTAL PROTEIN 8.6 g/dL (6.3-8.2)
== END ==
LOC: OD 08:12
PROVIDERS: ATTEND Physician Assistant
DX: K70.31 Alcoholic cirrhosis of liver with ascites (principal)
CPT/HCPCS: 36415; 80048; 80076; 82105; 85027; 85610

== ENCOUNTER → 2020-03-26 | Outpatient (CLI) | payer MEDICARE, MEDICAID ==
[2020-03-26 08:38] LABS: HEMATOCRIT 27.8 % (37.9-51.0); HEMOGLOBIN 8.6 g/dL (13.5-17.0); MEAN CORPUSCULAR HGB CONC 30.9 g/dL (32.0-36.0); MEAN CORPUSCULAR VOLUME 81 fl (80-97); PLATELET COUNT 215 10^3/uL (150-450); RED BLOOD COUNT 3.44 10^6/uL (4.35-5.55); RED CELL DISTRIBUTION WIDTH 15.8 % (11.5-14.0); WHITE BLOOD COUNT 4.5 10^3/uL (4.0-10.5)
[2020-03-26 08:56] LABS: ABSOLUTE LYMPHOCYTES# (MANUAL) 1.8 10^3/uL (0.5-4.7); ABSOLUTE MONOCYTES # (MANUAL) 0.2 10^3/uL (0.1-1.4); BASOPHILS % (MANUAL) 2 % (0-2); EOSINOPHILS % (MANUAL) 5 % (0-6); LYMPHOCYTES % (MANUAL) 41 % (13-45); MONOCYTES % (MANUAL) 4 % (3-13); SEGMENTED NEUTROPHILS % (MAN) 48 % (42-78); TOTAL CELLS COUNTED 100
[2020-03-26 08:58] LABS: ALBUMIN 4.1 g/dL (3.5-5.0); ALKALINE PHOSPHATASE 173 U/L (38-126); ANION GAP 9 (5-19); ANISOCYTOSIS SLIGHT; ASPARTATE AMINO TRANSFERASE 49 U/L (17-59); BILIRUBIN,TOTAL 0.4 mg/dL (0.2-1.3); BLOOD UREA NITROGEN 16 mg/dL (7-20); CALCIUM 9.2 mg/dL (8.4-10.2); CARBON DIOXIDE 23 mmol/L (22-30); CHLORIDE 107 mmol/L (98-107); GLUCOSE 103 mg/dL (75-110); PLATELET COMMENT ADEQUATE; POLYCHROMASIA SLIGHT; TOTAL PROTEIN 9.1 g/dL (6.3-8.2)
== END ==
LOC: OD 08:03
PROVIDERS: ATTEND Family Medicine Geriatric Medicine
DX: K70.31 Alcoholic cirrhosis of liver with ascites (principal); E83.42 Hypomagnesemia; R73.02 Impaired glucose tolerance (oral); Z79.899 Other long term (current) drug therapy
CPT/HCPCS: 36415; 80053; 82140; 83036; 83735; 85025

== ENCOUNTER → 2020-04-06 | Outpatient (CLI) | payer MEDICARE, MEDICAID ==
--- NOTE | 2020-04-06 11:51 | RADIOLOGY REPORT (SQ) ---
EXAM DESCRIPTION: U/S ABDOMEN LIMITED W/O DOP IMAGES COMPLETED DATE/TIME: 04/06/2020 10:25 am REASON FOR STUDY: ALCOHOLIC CIRRHOSIS OF LIVER W/ASCALEIDA (K70.31) K70.31 ALCOHOLIC CIRRHOSIS OF LI RONI WITH ASCITES COMPARISON: None. TECHNIQUE: Dynamic and static grayscale images acquired of the abdomen and recorded on PACS. Additio nal selected color Doppler and spectral images recorded. LIMITATIONS: None. FINDINGS: PANCREAS: No masses. Visualized pancreatic duct normal caliber. LIVER: Normal size. Heterogeneous echotexture with mildly increased echogenicity. No focal lesions. LIVER VASCULATURE: Normal directional flow of the main portal vein and hepatic veins. GALLBLADDER: No stones. Normal wall thickness. No pericholecystic fluid. ULTRASOUND-DETECTED MOSQUERA'S SIGN: Negative. INTRAHEPATIC DUCTS AND COMMON DUCT: CBD and intrahepatic ducts normal caliber. No filling defects. INFERIOR VENA CAVA: Normal flow. AORTA: No aneurysm. RIGHT KIDNEY: Normal size measuring 10.3 cm. Normal echogenicity. No solid or suspicious masses. No hydronephrosis. No calcifications. PERITONEAL AND RIGHT PLEURAL SPACE: No ascites or effusions. OTHER: No other significant findings. IMPRESSION: 1. Heterogeneous hepatic echotexture which can be seen with intrinsic liver disease. P robable hepatic steatosis. 2. No ascites. TECHNICAL DOCUMENTATION: JOB ID: [id number] 2010 [employer]- All Rights Reserved Reading location - IP/workstation name: [email or web address]
== END ==
LOC: RAD 07:26
PROVIDERS: ATTEND Family Medicine Geriatric Medicine
DX: K70.31 Alcoholic cirrhosis of liver with ascites (principal)
CPT/HCPCS: 76705

== ENCOUNTER → 2020-05-04 | Outpatient (CLI) | payer MEDICARE, MEDICAID ==
[2020-05-04 07:53] LABS: HEMATOCRIT 25.8 % (37.9-51.0); MEAN CORPUSCULAR HEMOGLOBIN 23.5 pg (27.0-33.4); MEAN CORPUSCULAR HGB CONC 31.1 g/dL (32.0-36.0); MEAN CORPUSCULAR VOLUME 76 fl (80-97); PLATELET COUNT 156 10^3/uL (150-450); RED CELL DISTRIBUTION WIDTH 16.7 % (11.5-14.0); WHITE BLOOD COUNT 3.9 10^3/uL (4.0-10.5)
[2020-05-04 08:09] LABS: ALBUMIN 3.6 g/dL (3.5-5.0); ALKALINE PHOSPHATASE 177 U/L (38-126); ANION GAP 8 (5-19); ASPARTATE AMINO TRANSFERASE 44 U/L (17-59); BILIRUBIN,DIRECT 0.3 mg/dL (0.0-0.4); BILIRUBIN,TOTAL 0.4 mg/dL (0.2-1.3); BLOOD UREA NITROGEN 13 mg/dL (7-20); CARBON DIOXIDE 24 mmol/L (22-30); CHLORIDE 107 mmol/L (98-107); GLUCOSE 98 mg/dL (75-110); POTASSIUM 4.3 mmol/L (3.6-5.0)
[2020-05-04 08:19] LABS: ABSOLUTE LYMPHOCYTES# (MANUAL) 1.9 10^3/uL (0.5-4.7); ABSOLUTE MONOCYTES # (MANUAL) 0.2 10^3/uL (0.1-1.4); BAND NEUTROPHILS % (MANUAL) 1 % (3-5); BASOPHILS % (MANUAL) 0 % (0-2); EOSINOPHILS % (MANUAL) 4 % (0-6); LYMPHOCYTES % (MANUAL) 49 % (13-45); MONOCYTES % (MANUAL) 6 % (3-13); SEGMENTED NEUTROPHILS % (MAN) 40 % (42-78); TOTAL CELLS COUNTED 100
[2020-05-04 08:20] LABS: ANISOCYTOSIS 1+; PLATELET COMMENT ADEQUATE
[2020-05-04 08:21] LABS: TARGET CELLS SLIGHT; TEAR DROP CELLS SLIGHT
== END ==
LOC: OD 07:19
PROVIDERS: ATTEND Family Medicine Geriatric Medicine
DX: I10 Essential (primary) hypertension (principal); F10.10 Alcohol abuse, uncomplicated; Z79.899 Other long term (current) drug therapy
CPT/HCPCS: 36415; 80053; 82140; 85025

== ENCOUNTER → 2020-05-07 | Outpatient (CLI) | payer MEDICARE, MEDICAID ==
[2020-05-07 11:12] LABS: HEMOGLOBIN 8.5 g/dL (13.5-17.0); MEAN CORPUSCULAR HEMOGLOBIN 23.8 pg (27.0-33.4); MEAN CORPUSCULAR HGB CONC 31.6 g/dL (32.0-36.0); MEAN CORPUSCULAR VOLUME 75 fl (80-97); PLATELET COUNT 179 10^3/uL (150-450); RED CELL DISTRIBUTION WIDTH 16.8 % (11.5-14.0); WHITE BLOOD COUNT 4.1 10^3/uL (4.0-10.5)
[2020-05-07 11:45] LABS: ABSOLUTE LYMPHOCYTES# (MANUAL) 1.8 10^3/uL (0.5-4.7); ABSOLUTE MONOCYTES # (MANUAL) 0.4 10^3/uL (0.1-1.4); BASOPHILS % (MANUAL) 2 % (0-2); EOSINOPHILS % (MANUAL) 6 % (0-6); LYMPHOCYTES % (MANUAL) 45 % (13-45); MONOCYTES % (MANUAL) 9 % (3-13); SEGMENTED NEUTROPHILS % (MAN) 38 % (42-78); TOTAL CELLS COUNTED 100
[2020-05-07 11:47] LABS: ANISOCYTOSIS 1+; HYPOCHROMASIA 1+; PLATELET COMMENT ADEQUATE; TARGET CELLS SLIGHT
== END ==
LOC: OD 10:30
PROVIDERS: ATTEND Family Medicine Geriatric Medicine
DX: R79.89 Other specified abnormal findings of blood chemistry (principal)
CPT/HCPCS: 36415; 85025

== ENCOUNTER 2020-06-28 15:30 | Emergency (ER) | payer MEDICARE, MEDICAID ==
[2020-06-28 15:43] VITALS: BP 129/59
[2020-06-28] MEDS ORDERED: IPRATROPIUM/ALBUTEROL 0.5-2.5 MG/3 ML AMPUL NEB ONE (17:30)
--- NOTE | 2020-06-28 17:31 | ER Document Report ---
ED Medical Screen (RME) - General Stated Complaint: COUGH Time Seen by Provider: 06/28/20 17:25 Primary Care Provider: SAMMI SARABIA MD [Primary Care Provider] - Follow up as needed TRAVEL OUTSIDE OF THE [place] IN LAST 30 DAYS: No - HPI Notes: 06/28/20 17:31 59-year-old male with a history of COPD, ascites, alcoholic liver disease, GERD, presents via EMS for right-sided chest pain that started last night, he reports that it was heavy pressure. He reports that he took an Advil without relief last night. States this morning when he woke up his chest pain traveled to his right back and is now traveling to his neck. Reports pain is been constant. Patient states that he has been having chest pain for "months" but states that last night the chest pain became worse. Eating and drink without any issues. I have greeted and performed a rapid initial assessment of this patient. A comprehensive ED assessment and evaluation of the patient, analysis of test results and completion of the medical decision making process will be conducted by additional ED providers. PHYSICAL EXAMINATION: GENERAL: chronically ill malnourished and in no acute distress. HEAD: Atraumatic, normocephalic. EYES: Pupils equal round extraocular movements intact, conjunctiva are normal. NECK: Normal range of motion CV: s1, s2 regular LUNGS: Expiratory wheezing throughout - Related Data Allergies/Adverse Reactions: Penicillins Allergy (Unknown, Verified 06/28/20 17:26) shrimp Allergy (Verified 06/28/20 17:26) strawberry Allergy (Verified 06/28/20 17:26) Past Medical History - Past Medical History Cardiac Medical History: Denies: Hx Coronary Artery Disease, Hx Heart Attack, Hx Hypertension Pulmonary Medical History: Reports: Hx Asthma, Hx Bronchitis, Hx COPD, Hx Pneumonia - SEVERAL TIMES Neurological Medical History: Denies: Hx Cerebrovascular Accident, Hx Seizures Renal/ Medical History: Denies: Hx Peritoneal Dialysis Musculoskeltal Medical History: Denies Hx Arthritis Past Surgical History: Reports: Hx Orthopedic Surgery - right hip replacement - Immunizations Immunizations up to date: No Hx Diphtheria, Pertussis, Tetanus Vaccination: Yes Physical Exam - Vital signs Vitals: Temp Pulse Resp BP Pulse Ox 97.7 F 92 22 H 129/59 H 100 06/28/20 15:41 06/28/20 15:41 06/28/20 15:41 06/28/20 15:41 06/28/20 15:41 Course - Vital Signs Vital signs: Temp Pulse Resp BP Pulse Ox 97.7 F 92 22 H 129/59 H 100 06/28/20 15:41 06/28/20 15:41 06/28/20 15:41 06/28/20 15:41 06/28/20 15:41 Doctor's Discharge - Discharge Referrals: SAMMI SARABIA MD [Primary Care Provider] - Follow up as needed
--- NOTE | 2020-06-28 18:25 | RADIOLOGY REPORT (SQ) ---
EXAM DESCRIPTION: CHEST SINGLE VIEW IMAGES COMPLETED DATE/TIME: 06/28/2020 5:06 pm REASON FOR STUDY: R sided chest pain x 1 day COMPARISON: 10/15/2019 EXAM PARAMETERS: NUMBER OF VIEWS: One view. TECHNIQUE: Single frontal radiographic view of the chest acquired. RADIATION DOSE: NA LIMITATIONS: None. FINDINGS: LUNGS AND PLEURA: Mild ill-defined opacities in the right mid to lower lung may represent infectious/ inflammatory process. No focal confluent consolidation or pleural effusion. No pneumoth orax. Biapical pleural scarring is stable. MEDIASTINUM AND HILAR STRUCTURES: No masses. Contour normal. HEART AND VASCULAR STRUCTURES: Heart normal in size. Normal vasculature. BONES: No acute findings. HARDWARE: None in the chest. OTHER: No other significant finding. IMPRESSION: Mild ill-defined opacities in the peripheral right lung may represent infectious/ inflam matory process. Hyperinflated lungs which can be seen with obstructive lung disease. TECHNICAL DOCUMENTATION: JOB ID: [id number] 2010 [employer]- All Rights Reserved Reading location - IP/workstation name: [email or web address]
[2020-06-28 19:24] LABS: ABSOLUTE BASOPHILS # (AUTO) 0.1 10^3/uL (0.0-0.2); ABSOLUTE EOSINOPHILS # (AUTO) 0.1 10^3/uL (0.0-0.6); ABSOLUTE LYMPHOCYTES (AUTO) 3.5 10^3/uL (0.5-4.7); ABSOLUTE MONOCYTES (AUTO) 0.7 10^3/uL (0.1-1.4); ABSOLUTE NEUT (AUTO) 2.8 10^3/uL (1.7-8.2); EOSINOPHILS % (AUTO) 1.7 % (0-6); HEMATOCRIT 24.7 % (37.9-51.0); LYMPHOCYTES % (AUTO) 48.8 % (13-45); MEAN CORPUSCULAR HEMOGLOBIN 23.2 pg (27.0-33.4); MEAN CORPUSCULAR HGB CONC 31.1 g/dL (32.0-36.0); MEAN CORPUSCULAR VOLUME 75 fl (80-97); MONOCYTES % (AUTO) 9.7 % (3-13); PLATELET COUNT 167 10^3/uL (150-450); RED CELL DISTRIBUTION WIDTH 18.2 % (11.5-14.0); SEGMENTED NEUTROPHILS % (AUTO) 38.8 % (42-78); TOTAL CELLS COUNTED % (AUTO) 100 %; WHITE BLOOD COUNT 7.2 10^3/uL (4.0-10.5)
[2020-06-28 19:38] LABS: ALBUMIN 3.7 g/dL (3.5-5.0); ALKALINE PHOSPHATASE 162 U/L (38-126); ANION GAP 12 (5-19); ASPARTATE AMINO TRANSFERASE 45 U/L (17-59); BILIRUBIN,DIRECT 0.1 mg/dL (0.0-0.4); BILIRUBIN,TOTAL 0.5 mg/dL (0.2-1.3); BLOOD UREA NITROGEN 10 mg/dL (7-20); CALCIUM 8.8 mg/dL (8.4-10.2); CARBON DIOXIDE 21 mmol/L (22-30); CHLORIDE 102 mmol/L (98-107); GLUCOSE 91 mg/dL (75-110); POTASSIUM 4.3 mmol/L (3.6-5.0); TOTAL PROTEIN 8.4 g/dL (6.3-8.2)
[2020-06-28 19:58] LABS: HEMOGLOBIN 7.7 g/dL (13.5-17.0)
[2020-06-28] MEDS ORDERED: PREDNISONE 20 MG TABLET PO ONE (20:13)
[2020-06-28] MEDS ORDERED: DOXYCYCLINE HYCLATE 100 MG TABLET PO ONE (20:14)
[2020-06-28] MEDS ORDERED: KETOROLAC TROMETHAMINE INJ/PF 30 MG/1 ML SDV IV ONE (20:14)
--- NOTE | 2020-06-28 20:19 | ER Document Report ---
ED General - General Chief Complaint: Cough Stated Complaint: COUGH Time Seen by Provider: 06/28/20 17:25 Primary Care Provider: SAMMI SARABIA MD [Primary Care Provider] - 06/30/20 Notes: Patient is a 59-year-old male who comes emergency department for chief complaint of right-sided chest and mid upper back discomfort. He states symptoms are intermittent since last night, at times much more noticeable than others. He denies difficulty breathing now although he feels much better after a DuoNeb from triage reportedly. He reports some wheezing and cough, denies fever, nausea, vomiting, abdominal pain, dizziness, or any current pain. Past medical history of COPD, current smoking, alcoholic cirrhosis, chronic anemia on iron. He denies CAD or stents. He denies obvious COVID-19 exposures or recent testing. He does not require home oxygen but does use as needed home nebulizer. TRAVEL OUTSIDE OF THE [place] IN LAST 30 DAYS: No - Related Data Allergies/Adverse Reactions: Penicillins Allergy (Unknown, Verified 06/28/20 17:26) shrimp Allergy (Verified 06/28/20 17:26) strawberry Allergy (Verified 06/28/20 17:26) Past Medical History - General Information source: Patient - Social History Smoking Status: Current Every Day Smoker Smoking Education Provided: Yes - <3 min Frequency of alcohol use: None Drug Abuse: None Lives with: Family Family History: Reviewed & Not Pertinent - Past Medical History Cardiac Medical History: Denies: Hx Coronary Artery Disease, Hx Heart Attack, Hx Hypertension Pulmonary Medical History: Reports: Hx Asthma, Hx Bronchitis, Hx COPD, Hx Pneumonia - SEVERAL TIMES Neurological Medical History: Denies: Hx Cerebrovascular Accident, Hx Seizures Renal/ Medical History: Denies: Hx Peritoneal Dialysis Musculoskeletal Medical History: Denies Hx Arthritis Past Surgical History: Reports: Hx Orthopedic Surgery - right hip replacement - Immunizations Immunizations up to date: No Hx Diphtheria, Pertussis, Tetanus Vaccination: Yes Review of Systems - Review of Systems Constitutional: No symptoms reported EENT: No symptoms reported Cardiovascular: See HPI Respiratory: See HPI Gastrointestinal: No symptoms reported Genitourinary: No symptoms reported Male Genitourinary: No symptoms reported Musculoskeletal: See HPI Skin: No symptoms reported Hematologic/Lymphatic: No symptoms reported Neurological/Psychological: No symptoms reported Physical Exam - Vital signs Vitals: Temp Pulse Resp BP Pulse Ox 97.7 F 92 22 H 129/59 H 100 06/28/20 15:41 06/28/20 15:41 06/28/20 15:41 06/28/20 15:41 06/28/20 15:41 - Notes Notes: GENERAL: Alert, interacts well. No acute distress. Slightly chronically ill- appearing HEAD: Normocephalic, atraumatic. EYES: Pupils equal, round, and reactive to light. Extraocular movements intact. ENT: Oral mucosa moist, tongue midline. Oropharynx unremarkable. Airway patent. NECK: Full range of motion. Supple. Trachea midline. No lymphadenopathy. LUNGS: Slightly decreased bilaterally but no wheezes, rales, rhonchi, tachypnea, or signs of distress. Nontender chest wall. HEART: Regular rate and rhythm. No murmur ABDOMEN: Soft, non-tender. Non-distended. EXTREMITIES: Moves all 4 extremities spontaneously. No edema, normal radial and dorsalis pedis pulses bilaterally. No cyanosis. BACK: no cervical, thoracic, lumbar midline tenderness. No saddle anesthesia, normal distal neurovascular exam. Moves all extremities in full range of motion. NEUROLOGICAL: Alert and oriented x3. Normal speech. Cranial nerves II through XII grossly intact. Strength 5/5 in all extremities. PSYCH: Normal affect, normal mood. SKIN: Warm, dry, normal turgor. No rashes or lesions noted. Course - Re-evaluation Re-evalutation: On my evaluation patient's wheezing has resolved, he ambulated to the bathroom back without any difficulty, he is talkative and well-appearing. Patient states that he is hungry, he has a mild headache because he is hungry, and he just wants to be discharged. Patient did however allow me to evaluate him in the room. Physical exam is actually unremarkable. Vital signs on the monitor un remarkable. CBC shows unremarkable white blood cell count, microcytic anemia with hemoglobin of 7.7. I discussed with patient, he denies blood in the stool, he states he has been told his blood counts been low when he was started on iron, patient is not receptive to the idea of a transfusion. He denies dyspnea on exertion. He states that he will follow-up with his provider in regards to this and if they want to "give me something then they can". Remaining laboratory work-up nonspecific including negative troponin despite several days of reported symptoms. Chest x-ray showing possible right-sided pneumonia which is on the same side of patient's complaint. Patient has no current symptoms of right- sided chest or back discomfort. I suspect this could be secondary to the pneumonia with the intermittent symptoms. No hypoxia, tachycardia, or reported risks for DVT/PE. Discussed with patient. Patient will be treated for suspected COPD exacerbation with prednisone, discussed smoking cessation, and he will be treated for suspected pneumonia with doxycycline. Patient is also been COVID-19 tested and we discussed this. Discussed follow-up and return precautions. Patient states understanding and agreement. Stable and well- appearing at time of discharge. - Vital Signs Vital signs: Temp Pulse Resp BP Pulse Ox 97.7 F 92 22 H 129/59 H 100 06/28/20 15:41 06/28/20 15:41 06/28/20 15:41 06/28/20 15:41 06/28/20 15:41 - Laboratory Result Diagrams: 06/28/20 18:28 06/28/20 18:28 Laboratory results interpreted by me: 06/28/20 06/28/20 18:28 18:28 RBC 3.30 L Hgb 7.7 L Hct 24.7 L MCV 75 L MCH 23.2 L MCHC 31.1 L RDW 18.2 H Lymph % (Auto) 48.8 H Seg Neutrophils % 38.8 L Sodium 135.3 L Carbon Dioxide 21 L Alkaline Phosphatase 162 H Total Protein 8.4 H - EKG Interpretation by Me Additional EKG results interpreted by me: EKG shows sinus rhythm at a rate of 81, normal axis, QTC 423, no T wave inversions or ST segment changes in consecutive leads. Discharge - Discharge Clinical Impression: Right-sided chest pain Condition: Stable Disposition: HOME, SELF-CARE Instructions: COVID-19 Guidance for Persons Under Investigation Additional Instructions: Your x-ray is concerning for possible developing pneumonia in the right lung. Your exam also suggests a COPD exacerbation. I recommend both the doxycycline antibiotic and the prednisone, you can also use your albuterol inhaler to help with wheezing/shortness of breath. You have been tested for COVID-19, you will be contacted with your results, please quarantine while awaiting this. Your hemoglobin (red blood cells) are low again at 7.7. Continue the iron, please discuss your treatment options with your primary care provider in a close follow-up. Come back if you are worse including difficulty breathing, severe pain, fevers, or any other concerning or worsening symptoms. Prescriptions: Prednisone [Deltasone 20 mg Tablet] 3 tab PO DAILY 5 Days #15 tablet Doxycycline Hyclate [Vibramycin 100 mg Tablet] 100 mg PO BID 7 Days #14 tablet Referrals: SAMMI SARABIA MD [Primary Care Provider] - 06/30/20
--- NOTE | 2020-06-29 18:02 | EKG REPORT ---
SEVERITY:- ABNORMAL ECG - SINUS RHYTHM LEFT VENTRICULAR HYPERTROPHY : Confirmed by: Chente Mccollum 29-Jun-2020 18:01:39
--- OUTSIDE RECORDS SUMMARY | 2020-06-30 17:42 | XMS REPORT ---
:1960 Author Organization [facility] [place] [facility] [place] [address] [place] [address] Care Team Providers Name Role Phone Lyle Camp Primary Care Physician Unavailable ERIKA CORONADO Attending Clinician Unavailable Cate Bo Attending Clinician Unavailable Robi Perez Attending Clinician Unavailable ROSE MENDOZA Admitting Clinician Unavailable Allergies, Adverse Reactions, Alerts Allergy Name Allergy Status Severity Reaction(s) Onset Inactive Treat ing Comments Type Date Date Clinician Penicillins Propensity Active Hives to adverse 9-29 reactions 00:00: to drug 00 Shrimp Propensity Active Hives to adverse 9-29 reactions 00:00: to drug 00 Hardwick Propensity Active Hives to adverse 9-29 reactions 00:00: to drug 00 Seafood Miscellaneo Active us allergy 02-11 00:00: 00 Medications Ordered Filled Start Stop Current Ordering Indication Dosage Frequency Signature Comments Components Medication Medication Date Date Medication? Clinician (SIG) Name Name thiamine 2018-08 Yes 100mg QD Take 1 Tab mononitrate 0-05 by mouth (VITAMIN 00:00: daily. B-1) 100 mg 00 Oral Tablet folic acid 2018-08 Yes 1mg QD Take 1 Tab (FOLVITE) 1 0-05 by mouth mg Oral 00:00: daily. Tablet 00 folic acid 2018-08 No 1mg QD Take 1 Tab (FOLVITE) 1 0-05 by mouth mg Oral 00:00: daily. Tablet 00 thiamine 2018-08 No 100mg QD Take 1 Tab mononitrate 0-05 by mouth (VITAMIN 00:00: daily. B-1) 100 mg 00 Oral Tablet albuterol 2018-08 No 2{puff} Q6H Take 2 HFA (PROAIR 0-04 Puffs by HFA) 90 16:41: inhalation mcg/actuati 06 every 6 on hours as Inhalation needed for HFA Aerosol Wheezing. Inhaler budesonide- 2018-08 No 2{puff} Q.5D Take 2 formoterol 0-04 Puffs by (SYMBICORT) 16:41: inhalation 160-4.5 06 twice a mcg/actuati day. on Inhalation HFA Aerosol Inhaler potassium 2018-08 No 40meq 40 mEq, chloride 0-04 10-04 Oral, (KLOR-CON 14:35: 15:15 ONCE, Sat M20) CR 00 :00 05/22/19 at tablet 40 1435, For mEq 1 dose
To suspend:&n bsp;* Place the whole tablet in approximat martha 120 mL of cold water or juice to reduce stomach irritation or laxative effects.&n bsp;* Allow approximat martha 2 minutes for the contents to dissolve.& nbsp;* Stir for about half a minute after the contents have dissolved. * Swirl the suspension and administer orally.&nb sp;* Add another 30 mL of water, swirl, and administer immediatel y. <b r> magnesium 2018-08- No 2g 2 g, sulfate in 0-04 10-04 Intravenou SWI 2 09:25: 17:41 s, at 8.3 gram/50 mL 00 :08 mL/hr, IVPB Administer (premix) 2 over 6 g Hours, ONCE, 05/22/19 at 0925, For 1 dose potassium 2018-08- No 40meq 40 mEq, chloride 40 0-04 10-04 Intravenou mEq in 09:25: 14:47 s, at 260 sodium 00 :00 mL/hr, chloride Administer 0.9 % 500 over 2 mL Hours, peripheral ONCE, Fri bolus 05/22/19 at 0925, For 1 dose
Do NOT exceed 20 mEq of potassium chloride per hour.&nbsp ; Max imum peripheral line concentrat ion of potassium chloride is 20 mEq per 250 mL.
budesonide- 2018-08- No 2{puff} [Order 1 formoterol 0-04 10-04 Start] (SYMBICORT) 08:00: 17:41 Name: 160-4.5 00 :08 budesonide mcg/actuati -formotero on inhaler l 2 Puff (SYMBICORT ) 160-4.5 mcg/actuat ion inhaler 2 Puff Signed Summary: 2 Puff, Inhalation , RT TWICE A DAY, First dose (after last modificati on) on Sat05/22/19 at 0800, For 729 doses
R N to administer . Use for Symbicort. Shake well and rinse mouth after using.&nbs p;Med Disposal - Aerosol
[Order 1 End] [Order 2 Start] Name: ADMINISTRA TION, EVALUATION AND EDUCATION OF MDI OR DPI BY RT ORDERED Signed Summary: ORDERED - RT ONLY, Starting [facility] 05/21/19 at 2103, Until Specified, Routine [Order 2 End] multivit-ir 2018-08 Yes 1{tbl} Take 1 Tab on-FA-calci 0-04 by mouth um-mins 00:00: with (THERA-M) 9 00 supper. mg iron-400 mcg Oral Tablet omeprazole 2018-08 Yes 40mg QD Take 2 (PRILOSEC) 0-04 Caps by 20 mg Oral 00:00: mouth 00 daily. lactulose 2018-08 Yes 15mL Q.5D Take 15 mL (CEPHULAC) 0-04 by mouth 20 gram/30 00:00: twice a mL Oral 00 day. Solution lactulose 2018-08 No 15mL Q.5D Take 15 mL (CEPHULAC) 0-04 by mouth 20 gram/30 00:00: twice a mL Oral 00 day. Solution multivit-ir 2018-08 No 1{tbl} Take 1 Tab on-FA-calci 0-04 by mouth um-mins 00:00: with (THERA-M) 9 00 supper. mg iron-400 mcg Oral Tablet omeprazole 2018-08 No 40mg QD Take 2 (PRILOSEC) 0-04 Caps by 20 mg Oral 00:00: mouth 00 daily. ciprofloxac 2018-08- No 500mg Q.5D Take 1 Tab in (CIPRO) 0-04 10-06 by mouth 500 mg Oral 00:00: 23:59 every 12 Tablet 00 :00 hours for 3 doses. Indication s: SBP ppx ciprofloxac 2018-08- No 500mg Q.5D Take 1 Tab in (CIPRO) 0-04 10-06 by mouth 500 mg Oral 00:00: 23:59 every 12 Tablet 00 :00 hours for 3 doses. Indication s: SBP ppx budesonide- 2018-08- No 2{puff} formoterol 0-05-21 (SYMBICORT) 20:00: 21:03 160-4.5 00 :27 mcg/actuati on inhaler 2 Puff polyethylen 2018-08- No 4000mL 4,000 mL, e 005-21 Oral, glycol-elec 14:25: 17:27 ONCE, Arabella trolytes 00 :00 05/21/19 at (NULYTELY) 1425, For solution 1 4,000 mL dose
OR AL: 240 mL every 10 minutes until 4 liters are consumed or until the rectal effluent is clear&nbsp ;N-30 mL/min (1.2-1.8 liters/hr) until 4 liters are consumed or until the rectal effluent is clear.&nbs p;DO NOT EXCEED 1.8 liters/hr.
propofol 10 2018-08- No Q1D Intravenou mg/mL 0-05-21 s, (DIPRIVAN) 13:29: 13:49 NEEDED, bolus 00 :15 Starting injection Arabella 05/21/19 at 1329, Intra-op lidocaine 2018-08- No Q1D NEEDED, (PF) 0-05-21 Starting (XYLOCAINE) 13:29: 13:49 Arabella 100 mg/5 mL 00 :15 05/21/19 at (2 %) 1329, injection Intra-op for cardiac arrhythmias propofol 2018-08- No Intravenou (DIPRIVAN) 0 10 s, infusion 13:26: 13:49 CONTINUOUS (premix) 00 :15 PRN, Starting Arabella 05/21/19 at 1326, Intra-op glycopyrrol 2018-08- No Q1D NEEDED, ate (PF) in 005-21 Starting water 13:25: 13:49 Arabella (ROBINUL) 1 00 :15 05/21/19 at mg/5 mL 1325, (0.2 mg/mL) Intra-op injection lidocaine 2018-08- No Q1D NEEDED, (XYLOCAINE) 005-21 Starting 2 % jelly 13:23: 13:49 Arabella 00 :15 05/21/19 at 1323, Intra-op sodium 2018-08 Intravenou chloride 0- 10-03 s, 0.9 % 13:21: 13:49 CONTINUOUS infusion 00 :15 PRN, Starting Arabella 05/21/19 at 1321, Intra-op magnesium 2018-08- No 2g Q.5D 2 g, sulfate in 05-21 Intravenou SWI 2 08:00: 23:27 s, at 8.3 gram/50 mL 00 :00 mL/hr, IVPB Administer (premix) 2 over 6 g Hours, TWICE A DAY, First dose on Sat05/21/19 at 0800, For 1 day pantoprazol 2018-08- No 40mg QD 40 mg, e 05-22 Oral, (PROTONIX) 06:35: 17:41 DAILY AT EC tablet 00 :08 0600, 40 mg First dose on Sat05/21/19 at 0635, For 365 days
Do NOT crush, break, or chew.&nbsp ; Dalton e on an empty stomach at least 30 minutes before food.
ciprofloxac 2018-08- No 500mg Q.5D 500 mg, in (CIPRO) 05-22 Oral, tablet 500 22:00: 17:41 EVERY 12 mg 00 :08 HOURS, First dose on Sat05/20/19 at 2200, For 7 doses
F or tube administra tion, tablet can be dissolved in 15 mL of sterile water.&nbs p; Fl ush tube before and after dose with sterile water.&nbs p; DO NOT USE TAP WATER to dissolve or flush.&a mp;nbsp;&n bsp;Hold enteral nutrition 1 hour before and 2 hours after administra tion. Administer 2 hours before or 4 hours after calcium, zinc, magnesium, carafate, and antacids.< br>Criteri a Restricted Antibiotic (Indicate Approval Obtained): Gastroente rologist<b r>Indicati ons: SBP ppx lactulose 2018-08- No 15mL Q.5D 15 mL, (CEPHULAC) 005-22 Oral, solution 15 22:00: 17:41 TWICE A mL 00 :08 DAY, First dose (after last modificati on) on Sat05/20/19 at 2200, For 2 days
20 grams per 30 mL Go al 3 BMs daily
multivit-ir 2018-08- No 1{tbl} 1 Tab, on-FA-calci 005-22 Oral, WITH um-mins 18:00: 17:41 SUPPER, (THERA-M) 00 :08 First dose per tablet on Sat Tab 05/20/19 at 1800, For 365 days
Us e for Theragran M or Multivitam in with Minerals&n bsp;Med Disposal - BK
folic acid 2018-08- No 1mg QD 1 mg, (FOLVITE) 005-22 Oral, tablet 1 mg 10:35: 17:41 DAILY, 00 :08 First dose on Sat05/20/19 at 1035, For 365 days
Us e for Folate or Folvite.<b r> thiamine 2018-08- No 100mg QD 100 mg, mononitrate 005-22 Oral, (VITAMIN 10:35: 17:41 DAILY, B-1) tablet 00 :08 First dose 100 mg on Sat05/20/19 at 1035, For 365 days rifAXIMin 2018-08- No 550mg Q.5D 550 mg, (XIFAXAN) 005-21 Oral, tablet 550 22:00: 12:07 TWICE A mg 00 :11 DAY, First dose on Sat05/19/19 at 2200, For 365 days lactulose 2018-08- No 30mL Q.[id number] 30 mL, (CEPHULAC) 005-20 [id number] Oral, solution 30 22:00: 10:04 3D THREE mL 00 :24 TIMES A DAY, First dose (after last modificati on) on Sat05/19/19 at 2200, For 1094 doses
2 0 grams per 30 mL Go al 3 BMs daily
sodium 2018-08- No 75mL/h 75 mL/hr, chloride 005-20 Intravenou 0.9 % 17:35: 17:34 s, at 75 infusion 00 :00 mL/hr, CONTINUOUS , Starting Sat05/19/19 at 1735, For 1 day sodium 2018-08 No 75mL/h 75 mL/hr, chloride 05-20 Intravenou 0.9 % 12:45: 00:44 s, at 75 infusion 00 :00 mL/hr, CONTINUOUS , Starting Sat05/19/19 at 1245, For 12 hours magnesium 2018-08 No 2g 2 g, sulfate in 05-19 Intravenou SWI 2 06:25: 12:36 s, at 8.3 gram/50 mL 00 :00 mL/hr, IVPB Administer (premix) 2 over 6 g Hours, ONCE, Sat05/19/19 at 0625, For 1 dose lactulose 300mL 300 mL, (CHRONULAC) 05-18 Per enema 300 18:00: 20:59 Rectum, mL 00 :00 ONCE, Sat05/18/19 at 1800, For 1 dose
Di lute with 700 ml water or NS prior to administra tion.
phytonadion No 5mg 5 mg, e (VITAMIN 05-18 Intravenou K) 5 mg in 17:15: 18:44 s, at 200 sodium 00 :00 mL/hr, chloride Administer 0.9 % 100 over 30 mL IVPB Minutes, ONCE, Sat05/18/19 at 1715, For 1 dose
Administe r over at least 30 minutes.&n bsp; Protect from light.
sodium No 75mL/h 75 mL/hr, chloride 05-18 Intravenou 0.9 % 17:00: 16:59 s, at 75 infusion 00 :00 mL/hr, CONTINUOUS , Starting Sat05/18/19 at 1700, For 1 day dextrose 50 No 50mL Q1D 25 g (50 % in water 05-17 10-04 mL), (D50W) 19:03: 17:41 Intravenou injection 36 :08 s, 25 g NEEDED, Hypoglycem ia, Blood glucose 54 mg/dL or less--for unresponsi ve, altered mental status, seizures, or NPO status, Starting 05/17/19 at 1903, For 365 days dextrose 50 2018- No 25mL Q1D 12.5 g (25 % in water 05-17 10-04 mL), (D50W) 19:03: 17:41 Intravenou injection 36 :08 s, 12.5 g NEEDED, Hypoglycem ia, Blood glucose 55-69 mg/dL--for unresponsi ve, altered mental status, seizures, or NPO status, Starting 05/17/19 at 1903, For 365 days dextrose 2018- No 15g Q1D 15 g, (GLUTOSE) 05-17 Oral, 40 % oral 19:03: 17:41 NEEDED, gel 15 g 36 :08 Hypoglycem ia, hypoglycem ia-preferr ed method of treating hypoglycem ia, Starting 05/17/19 at 1903, For 30 days
37 .5 g of Oral Gel = 15 g of glucose. Dose to be administer ed is the entire contents of one tube.
magnesium 2018- No 4g 4 g, sulfate 4 05-17 Intravenou gram/100 mL 13:25: 18:25 s, at 25 (4 %) IVPB 00 :00 mL/hr, (premix) 4 Administer g over 4 Hours, ONCE, 05/17/19 at 1325, For 1 dose lactulose 2018- No 300mL 300 mL, (CHRONULAC) 05-17 Per enema 300 12:55: 14:26 Rectum, mL 00 :00 ONCE, 05/17/19 at 1255, For 1 dose
Di lute with 700 ml water or NS prior to administra tion.
LORazepam 2018- No 2mg Q2H 2 mg (ATIVAN) 2 05-17 (0.0315 mg/mL 12:52: 05:56 mg/kg), injection 2 05 :25 Intravenou mg s, EVERY 2 HOURS NEEDED, For CIWA > 15, Starting 05/17/19 at 1252, For 41 hours
H OLD: SBP < 100, rr < 12, difficulty arousing pt.; &nbs p;Fall Risk Medication . Dilute 1:1 with 0.9% sodium chloride or D5W for IV administra tion.&nbsp ; Adm inistratio n rate should NOT exceed 2 mg/minute.
albuterol Yes 2{puff} Q6H Take 2 HFA (PROAIR 9-29 Puffs by HFA) 90 11:02: inhalation mcg/actuati 39 every 6 on hours as Inhalation needed for HFA Aerosol Wheezing. Inhaler budesonide- No 2{puff} Q.5D Take 2 formoterol 9-29 Puffs by (SYMBICORT) 11:02: inhalation 160-4.5 39 twice a mcg/actuati day. on Inhalation HFA Aerosol Inhaler ciprofloxac 2019- No 4877 400mg Q.5D 400 mg, in (CIPRO) 05-17 Intravenou 400 mg/200 10:00: 10:33 s, at 200 mL IVPB 00 :28 mL/hr, (premix) Administer 400 mg over 60 Minutes, EVERY 12 HOURS, First dose on 05/17/19 at 1000, For 7 days
Pr otect from light.
Criteria Restricted Antibiotic (Indicate Approval Obtained): Gastroente rologist<b r>Indicati ons: Empiric Infection Treatment pantoprazol 2019- No 40mg Q.5D 40 mg, e 05-17 Intravenou (PROTONIX) 10:00: 22:28 s, TWICE A injection 00 :00 DAY, First 40 mg dose on 05/17/19 at 1000, For 3 days
Th erapeutic Interchang e Response: Pharmacy to implement [facility] System P&T approved Therapeuti c Interchang e (if available) ipratropium 2019- No 3mL Q4H 3 mL, -albuterol 05-17 Inhalation (DUO-NEB) 08:46: 12:23 , EVERY 4 0.5 mg-3 03 :53 HOURS mg(2.5 mg NEEDED, base)/3 mL Shortness nebulizer of Breath, solution 3 Starting mL 05/17/19 at 0846, For 3 days
RE SPIRATORY to administer . Equivalent to 2.5 mg of Albuterol as the base.
octreotide 2018- No 50ug/h 50 mcg/hr (SandoSTATI 05-17 1004 (10 N) 500 mcg 08:10: 02:21 mL/hr), in sodium 00 :16 Intravenou chloride s, at 10 0.9 % 100 mL/hr, mL infusion CONTINUOUS , Starting 05/17/19 at 0810, For 30 days
Co ncentratio n: 5 mcg/mL.&nb sp; C all IV additives or send notificati on by In-Basket 1 hour prior to needing next bag.
magnesium 2018- No 2g 2 g, sulfate in 05-17 Intravenou SWI 2 06:25: 11:17 s, at 16.7 gram/50 mL 00 :00 mL/hr, IVPB Administer (premix) 2 over 3 g Hours, ONCE, 05/17/19 at 0625, For 1 dose sodium 2018- No 75mL/h 75 mL/hr, chloride 05-17 Intravenou 0.9 % 06:20: 06:19 s, at 75 infusion 00 :00 mL/hr, CONTINUOUS , Starting 05/17/19 at 0620, For 1 day multiple 2018- No Q24H Intravenou vitamin 05-17 10-01 s, at ADULT 06:00: 12:36 166.7 (INFUVITE) 00 :00 mL/hr, 10 mL, Administer thiamine over 6 (VITAMIN Hours, B-1) 100 EVERY 24 mg, folic HOURS, acid First dose (FOLVITE) 1 on Sun mg in 05/17/19 at sodium 0600, For chloride 3 0.9 % 1,000 days
To mL infusion be given once daily.&nbs p; Ca ll IV additives or send notificati on by In-Basket 1 hour prior to needing next bag.
LORazepam 2018- No 2mg Q2H 2 mg (ATIVAN) 2 05-17 (0.0315 mg/mL 05:57: 12:52 mg/kg), injection 2 25 :57 Intravenou mg s, EVERY 2 HOURS NEEDED, Anxiety, Agitation, Starting 05/17/19 at 0557, For 2 days
HO LD: SBP < 100, rr < 12, difficulty arousing pt.; &nbs p;Fall Risk Medication . Dilute 1:1 with 0.9% sodium chloride or D5W for IV administra tion.&nbsp ; Adm inistratio n rate should NOT exceed 2 mg/minute.
budesonide- Yes 2{puff} Q.5D Take 2 formoterol Puffs by (SYMBICORT) inhalation 160-4.5 twice a mcg/actuati day. on Inhalation HFA Aerosol Inhaler Problems Condition Condition Condition Status Onset Resolution Last Treatin g Comments Name Details Category Date Date Treatment Clinician Date Alcohol Alcohol 88873148 Active withdrawal withdrawal 05-17 delirium delirium 00:00: 00 Ascites Ascites [id number] Active 05-17 00:00: 00 Melena Melena 37901042 Active 05-17 00:00: 00 Acute Acute 65237075 Active post-hemorr post-hemorr 05-17 hagic hagic 00:00: anemia anemia 00 Thrombocyto Thrombocyto 37987369 Active penia penia 05-17 00:00: 00 Alcohol Alcohol 39705797 Active abuse abuse 05-17 00:00: 00 Elevated Elevated 48181549 Active LFTs LFTs 05-17 00:00: 00 Pulmonary Pulmonary 44143492 Active emphysema emphysema 05-17 00:00: 00 Anisocoria Anisocoria 49086031 Active O [place]: 05-17 Right 4 00:00: mm, 00 round/re a ctive to light; left, 6 mm, cataract , basicall y NR to light Procedures Procedure Date / Time Performed Performing Clinician Devic e MAGNESIUM 2019-05-22 09:23:00 Esme Noriega BASIC METABOLIC PANEL 2019-05-22 09:23:00 Esme Noriega EKGSCAN 2019-05-22 04:00:00 Unassign, Doctor PT (PROTHROMBIN TIME) WITH INR 2019-05-21 15:01:00 Albaro Arzate NURSING-TRANSFUSE FRESH FROZEN 2019-05-21 13:56:21 Esme Noriega PLASMA (PATIENT WT > 30KG) NURSING-TRANSFUSE FRESH FROZEN 2019-05-21 11:00:00 Esme Noriega PLASMA (PATIENT WT > 30KG) MAGNESIUM 2019-05-21 09:15:00 Esme Noriega CBC WITH DIFF 2019-05-21 09:15:00 Esme Noriega BASIC METABOLIC PANEL 2019-05-21 09:15:00 Esme Noriega PT (PROTHROMBIN TIME) WITH INR 2019-05-21 09:15:00 Esme Noriega FRESH FROZEN PLASMA (SET-UP) 2019-05-20 20:51:00 Esme Noriega li (PATIENT WT > 30 KG) PT (PROTHROMBIN TIME) WITH INR 2019-05-20 12:28:00 Esme Noriega MAGNESIUM 2019-05-20 06:13:00 Esme Noriega CBC WITH DIFF 2019-05-20 06:13:00 Esme Noriega BASIC METABOLIC PANEL 2019-05-20 06:13:00 Esme Noriega NURSING-TRANSFUSE PLATELETS 2019-05-19 13:39:21 Pat Plunkett (PATIENT WT > 30KG) NURSING-TRANSFUSE PLATELETS 2019-05-19 12:23:20 Pat Plunkett (PATIENT WT > 30KG) PLATELETS (SET-UP), (PATIENT WT > 2019-05-19 10:07:00 Clemente Plunkett 30KG) HEMOGLOBIN 2019-05-19 08:53:00 Pat Plunkett HEMATOCRIT 2019-05-19 08:53:00 Pat Plunkett PLATELET COUNT 2019-05-19 08:53:00 Pat Plunkett ABO/RH(D) 2019-05-19 08:53:00 LyudmilaMyrandama PHOSPHORUS 2019-05-19 06:53:00 Ngwainmbi, Joyce Abela MAGNESIUM 2019-05-19 06:53:00 Ngwainmbi, Joyce Abela BASIC METABOLIC PANEL 2019-05-19 06:53:00 TravisvalentinsudeepYusrasy Abela PT (PROTHROMBIN TIME) WITH INR 2019-05-19 06:53:00 AngelaBryce Abela EKGSCAN 2019-05-19 04:00:00 Unassign, Doctor COMPREHENSIVE METABOLIC PANEL 2019-05-18 09:53:00 Elena Mendoza COMPREHENSIVE METABOLIC PANEL 2019-05-18 07:55:00 Danilo Maki PT (PROTHROMBIN TIME) WITH INR 2019-05-18 07:55:00 Esme Noriega EKGSCAN 2019-05-18 04:00:00 Unassign, Doctor HEMOGLOBIN 2019-05-17 20:56:00 Esme Noriega CULTURE, BLOOD 2019-05-17 17:57:00 Skye Ortega CULTURE, BLOOD 2019-05-17 17:50:[address] HEAD W/O IV CONTRAST 2019-05-17 15:31:26 Esme Noriega US ABDOMEN RIGHT UPPER QUAD 2019-05-17 15:00:15 Skye Ortega (GB,LIVER,PANCREAS) FOLATE 2019-05-17 14:27:00 Esme Noriega VITAMIN B12 2019-05-17 14:27:00 Esme Noriega HEMOGLOBIN 2019-05-17 14:27:00 Esme Noriega HEPATITIS PANEL, ACUTE 2019-05-17 14:27:00 Skye Ortega HIV AB/AG COMBINED ASSAY 2019-05-17 14:27:00 Skye Ortega TSH 2019-05-17 14:27:00 Esme Noriega URINALYSIS, COMPLETE 2019-05-17 10:26:00 Herber Maki DRUG SCREEN, URINE 2019-05-17 10:26:00 Herber Maki COMPREHENSIVE METABOLIC PANEL 2019-05-17 09:17:00 Danilo Maki PHOSPHORUS 2019-05-17 09:17:00 Herber Maki AMMONIA 2019-05-17 09:17:00 Herber Maki LACTIC ACID 2019-05-17 09:17:00 Herber Maki MAGNESIUM 2019-05-17 09:17:00 Herber Maki CBC WITH DIFF 2019-05-17 09:17:00 Herber Maki TROPONIN I 2019-05-17 09:17:00 Herber Maki PT (PROTHROMBIN TIME) WITH INR 2019-05-17 09:17:00 Fr verona Maki PTT 2019-05-17 09:17:00 Herber Maki EKG 12 LEAD 2019-05-17 09:01:00 Herber Maki EAR WAX REMOVAL (23718) 2017-03-20 08:17:00 OFFICE OUTPATIENT VISIT 25 2017-03-20 07:45:00 MINUTES SELF PAY NEW OV 2017-03-06 16:00:00 OFFICE OUTPATIENT VISIT 15 2017-02-28 08:07:00 MINUTES OFFICE OUTPATIENT NEW 20 MINUTES 2017-02-11 09:58:00 Results Test Description Test Time Test Comments Text Results Atomic Results Result Comments FRESH FROZEN PLASMA (SET-UP) (PATIENT WT > 30 KG) 2019-05-23 06: 56:52 Test Item Value Reference Range Comments Unit Number (test code = 323112) [id number] PRODUCT CODE (test code = 793777) THAWED PLASMA Unit Division (test code = 696093) 0 Dispense Status (test code = 612608) ISSFIN Blood Bank Issued Time (test code = 383530) [id number] Unit Status (test code = 682608) [employer]ANS PRODUCT CODE (test code = 432311) [id number] CULTURE, [id number] 15:21:27 Test Item Value Reference Range Comments Specimen (test code = 72415-4) BLOOD Information (test code = 55570-1) L HAND NO E Culture (test code = 55780-5) NO GROWTH 5 DAYS Report Status (test code = 278997) FINAL05/22/2019 BASIC METABOLIC [id number] 06:58:56 Test Item Value Reference Range Comments BUN (test code = 3094-0) 5 mg/dL 8-26 Sodium (test code = 2951-2) 140 mEq/L 136- 145 mEq/L Potassium (test code = 2823-3) 3.0 mEq/L 3.5- 4.5 mEq/L Chloride (test code = 2075-0) 108 mEq/L 98- 107 mEq/L Bicarbonate (TCO2) (test code = 2028-9) 23 mEq/L 23- 31 m Eq/L Glucose (test code = 2345-7) 87 mg/dL 70-105 Creatinine (test code = 2160-0) 0.72 mg/dL 0.72-1.25 Anion Gap (calc.) (test code = 11393-6) 9 mEq/L 4- 12 mE q/L Calcium (test code = 96968-8) 8.0 mg/dL 8.4-10.2 GFR, non-AA, (est.) (test code = 71379-7) >90 >59 mL /Min/1.73 m2 GFR, AA, (est.) (test code = 92628-8) >90 >59 mL/Min /1.73 m2 Lab Interpretation (test code = 71486-0) Abnormal [id number] 06:58:56 Test Item Value Reference Range Comments Magnesium (test code = 70395-6) 1.6 mg/dL 1.6-2.6 PT (PROTHROMBIN TIME) WITH [id number] 11:40:07 Test Item Value Reference Range Comments PT (test code = 5902-2) 20.0 sec 10.2- 12.9 sec INR (test code = 6301-6) 1.8 INR, Therapeutic Range (test code = STD THER RANGE 2-3 791768) Lab Interpretation (test code = 66340-8) Abnormal CBC WITH [id number] 07:45:55 Test Item Value Reference Range Comments WBC (test code = 6690-2) 4.27 k/uL 4.5- 11.0 k/uL RBC (test code = 789-8) 2.24 M/uL 4.4- 5.9 M/uL Hemoglobin (test code = 8.1 g/dL 13-18 718-7) Hematocrit (calc.) (test code 24.3 % 40-52 = 4544-3) MCV (test code = 787-2) 108.5 fL 80-100 MCH (test code = 785-6) 36.2 pg 26-34 MCHC (calc.) (test code = 33.3 g/dL 32-36 786-4) RDW (test code = 788-0) 20.5 % 11.5-14.5 Platelet (test code = 777-3) 133 k/uL 150- 440 k/uL Res ult Verified Mean Platelet Volume (test 10.5 fL 7.4-10.6 code = 61068-4) Differential Type (test code MANUAL = 624505) Immature Platelet Fraction 2.9 % 0.5-6 (%) (test code = 97056-3) Immature Platelet Fraction 3.9 k/uL 2.5- 13.5 k/uL (#) (test code = 67966-8) Band (%) (test code = 764-1) 0 % Neutrophil (%) (test code = 31 % 770-8) Lymphocyte (%) (test code = 54 % 798107) Monocyte (%) (test code = 13 % 856844) Eosinophil (%) (test code = 2 % 003939) Basophil (%) (test code = 0 % 269019) Neutrophil/Band (#) (test 1.32 k/uL 1.8- 7.7 k/uL code = 655256) Lymphocyte (#) (test code = 2.31 k/uL 1.0- 4.8 k/uL 404647) Monocyte (#) (test code = 0.56 k/uL 0.0- 0.8 k/uL 129661) Eosinophil (#) (test code = 0.09 k/uL 0.0- 0.5 k/uL 711-2) Basophil (#) (test code = 0.00 k/uL 0.0- 0.2 k/uL 758143) Blood Cell Morphology (test CONFIRMED RED CELL code = 309299) INDICIES Smudge Cells (test code = PRESENT 700331) Pappenheimer Bodies (test 2+ code = 139238) Polychromasia (test code = 2+ 072212) Lab Interpretation (test code Abnormal = 38845-4) PLATELETS (SET-UP), (PATIENT WT > 30KG)2019-05-21 02:02:30 Test Item Value Reference Range Comments Unit Number (test code = 536580) [id number] PRODUCT CODE (test code = 779670) LEUKOREDUCED PLT PH Unit Division (test code = 508470) 0 Dispense Status (test code = 355065) [facility], [facility] Blood Bank Issued Time (test code = [id number] 196810) Unit Status (test code = 593289) [employer] PRODUCT CODE (test code = 698857) [id number] EKG 12 [id number] 19:57:00 Test Item Value Reference Range Comments EKG Text (test code = INTERFACED DOCUMENTS - Lola Pirindola 585681) CENTER- ABNORMAL ECG -Sinus rhythmnormal P axis, V-rate 60-99Probable left atrial enlargementP >50mS, <-0.10mV V1Left ventricular hypertrophymultiple LVH criteriaProlonged QT intervalQTc >500mSReading PhysicianThe [facility] of [facility] [address] Heart Rate (test code = 91 BPM BPM 097788) P [place] (test code = 66 degrees degrees 456509) I-40 [place] (test code = 82 degrees degrees 116909) T-40 [place] (test code = 65 degrees degrees 994852) QRS [place] (test code = 64 degrees degrees 159024) ST [place] (test code = Invalid degrees 539893) T Wave [place] (test code 52 degrees degrees = 915667) ABO/RH(D)2019-05-19 06:47:00 Test Item Value Reference Range Comments Blood Type ABO, Rh (test code = 882-1) O POS PLATELET [id number] 06:01:29 Test Item Value Reference Range Comments Platelet (test code = 777-3) 70 k/uL 150- 440 k/uL Lab Interpretation (test code = 77009-0) Abnormal [id number] 06:01:29 Test Item Value Reference Range Comments Hemoglobin (test code = 718-7) 9.0 g/dL 13-18 Lab Interpretation (test code = 45586-6) Abnormal [id number] 06:01:29 Test Item Value Reference Range Comments Hematocrit (calc.) (test code = 4544-3) 27.3 % 40-52 Lab Interpretation (test code = 43941-6) Abnormal [id number] 04:02:22 Test Item Value Reference Range Comments Phosphorus (test code = 2777-1) 3.7 mg/dL 2.3-4.7 COMPREHENSIVE METABOLIC [id number] 06:57:23 Test Item Value Reference Range Comments Sodium (test code = 2951-2) 138 mEq/L 136- 145 mEq/L Potassium (test code = 2823-3) 3.8 mEq/L 3.5- 4.5 mEq/L Chloride (test code = 5-0) 108 mEq/L 98- 107 mEq/L Bicarbonate (TCO2) (test code = 2027-9) 22 mEq/L 23- 31 m Eq/L Calcium (test code = 93429-1) 7.4 mg/dL 8.4-10.2 Glucose (test code = 2345-7) 78 mg/dL 70-105 BUN (test code = 3094-0) 3 mg/dL 8-26 Protein, Total (test code = 2885-2) 6.7 g/dL 6.2-8.1 Albumin (test code = 1751-7) 2.1 g/dL 3.2-4.6 Bilirubin, Total (test code = 1975-2) 4.1 mg/dL 0.1-1.2 Alkaline Phosphatase (test code = 6768-6) 99 U/L 40-150 AST (SGOT) (test code = 1920-8) 83 U/L 5-34 Creatinine (test code = 2160-0) 0.75 mg/dL 0.72-1.25 Anion Gap (calc.) (test code = 70570-3) 8 mEq/L 4- 12 mE q/L ALT (SGPT) (test code = 1742-6) 24 U/L <55 GFR, non-AA, (est.) (test code = 45032-9) >90 >59 mL /Min/1.73 m2 GFR, AA, (est.) (test code = 89259-3) >90 >59 mL/Min /1.73 m2 Lab Interpretation (test code = 13964-9) Abnormal VITAMIN [id number] 12:06:06 Test Item Value Reference Range Comments Vitamin B12 (test code = 2132-9) >2000 213-816 Lab Interpretation (test code = 96274-3) Abnormal [id number] 12:06:06 Test Item Value Reference Range Comments Folate (test code = 2284-8) 19.2 ng/mL (NOT E) FOLATE REFERENCE RANGES: Normal: >5.4 ng/mL Indeterminant: 3.4-5.4 ng/mL Deficient: <3.4 ng/mL TSH WITH REFLEX TO FREE [id number] 12:06:06 Test Item Value Reference Range Comments TSH with Reflex (test code = 60867-7) 0.50 uIU/mL 0.35- 4.94 uIU/mL HEPATITIS PANEL, [id number] 11:49:28 Test Item Value Reference Range Comments Hepatitis B Virus Core Ab, IgM (test code = 58874-6) NEG NEG^NEG Hepatitis A Virus Ab, IgM (test code = 85765-3) NEG NEG^NEG Hepatitis B Virus Surface Ag (test code = 7905-3) NEG NEG^NEG Hepatitis C Virus Ab (test code = 81879-0) NEG NEG^N EG HIV AB/AG COMBINED [id number] 11:49:28 Test Item Value Reference Range Comments HIV Ag/Aniyah Combo. (test code NEG NEG^NEG Lima t performed by [employer] Artist = 52822-4) HIV Ag/Ab Combo assay. CT HEAD W/O IV [id number] 11:39:00Impression: 1. No acute intracranial abnormality. 2. Moderate intracranial atherosclerosis with mildcerebral atrophy and leukoaraiosis. 3. Incompletely visualized radiopaque material along the medial left parotid space, favored postsurgical in etiology. Recommend correlation with surgical history. Reading Doctor: Keith BrasherElectronic Signature by: Keith BrasherCT HEAD WITHOUT CONTRAST. Indication: acute encephelopathy Comparison: None Technique: Contiguous axial images of the head were obtained from the skull base through the vertex without IV contrast. Findings: Mild cerebral atrophy. Patchy hypoattenuation within the periventricular and deep white matter is consistent with chronic microvascular ischemic changes (leukoaraiosis).Moderate atherosclerotic calcifications of the intracranial internal carotid arteries. Soft tissue within the left greater than right external auditory canals likely reflects cerumen and amenable to direct otoscopic evaluation. Radiopaque hyperdense material ) along the posterior medial aspect of the base of the left condylar neck and adjacent mandibular ramus is incompletely visualized.No mass, mass-effect, midline shift, hydrocephalus, abnormal extra-axial fluid collection, acute infarct or intracranial hemorrhage is present. The visualized orbitsand paranasal sinuses are unremarkable. Interface, Radresults_Incoming - 05/17/2019 11:42 AM EDTCT HE AD WITHOUT CONTRAST. Indication: acute encephelopathy Comparison: None Technique: Contiguous axial images of the head were obtained from the skull base through the vertex without IV contrast. Findings:Mild cerebral atrophy. Patchy hypoattenuation within the periventricular and deep white matter is consistent with chronic microvascular ischemic changes (leukoaraiosis). Moderate atherosclerotic calcifications of the intracranial internal carotid arteries. Soft tissue within the left greater than right external auditory canals likely reflects cerumen and amenable to direct otoscopic evaluation. Radiopaque hyperdense material ) along the posterior medial aspect of the base of the left condylar neck and adjacent mandibular ramus is incompletely visualized. No mass, mass-effect, midline shift, hydrocephalus, abnormal extra-axial fluid collection, acute infarct or intracranial hemorrhage is present. The visualized orbits and paranasal sinuses are unremarkable. IMPRESSION Impression: 1. No acute intracranial abnormality. 2. Moderate intracranial atherosclerosis with mild cerebral atrophy and leukoaraiosis. 3. Incompletely visualized radiopaque material along the medial left parotid space, favored postsurgical in etiology. Recommend correlation with surgical history. Reading Doctor: Keith Brasher [facility] Signature by: Urszula Brasher ABDOMEN RIGHT UPPER QUAD (GB,LIVER,PANCREAS) 2019-05-17 11:30:00Impression:1. Nodular liver consistent with cirrhosis. No focal liver mass identified.2. Mild gallbladder wall thickening is nonspecific in the setting of hepatic disease. No gallstones or findings to suggest acute cholecystitis.3. Mild dilatation of the common bile duct and pancreatic duct. No definite pancreatic mass identified but clinical correlation recommended. If there is biochemical evidence of biliary obstruction, follow-up or further evaluation with MRCP/ERCP should be considered.4. Small volume perihepatic ascites. Minimal right pleural effusion. Reading Doctor: Ashanti Devries Electronic Signature by: Ashanti Devries Clinical History: Elevated bilirubin and lipase. Comparison: Ultrasound 05/15/2019 Findings: Right upper quadrant ultrasound. The liver is diffusely nodular, consistent with cirrhosis. No focal liver mass identified. No intrahepatic biliary ductal dilatation. The commonduct measures is dilated measuring up to 9 mm. The portal vein has antegrade flow. The gallbladder wall is top normal in thickness. No gallstones. The patient was nontender when imaging over the gallbladder. Pancreatic duct is dilated measuring up to 5 mm, unchanged from CT. No definite mass. Small volume perihepatic ascites. No evidence of abdominal aortic aneurysm. Patent IVC. Minimal right pleuraleffusion. The right kidney measures 10.6 cm in length. No mass or hydronephrosis. Interface, Radresults_Incoming - 05/17/2019 11:33 AM EDTClinical History: Elevated bilirubin and lipase. Comparison: Ultrasound 05/15/2019 Findings: Right upper quadrant ultrasound. The liver is diffusely nodular, consistent with cirrhosis. No focal liver mass identified. No intrahepatic biliary ductal dilatation. The common duct measures is dilated measuring up to 9 mm. The portal vein has antegrade flow. The gallbladder wall is top normal in thickness. No gallstones. The patient was nontender when imaging over the gallbladder. Pancreatic duct is dilated measuring up to 5 mm, unchanged from CT. No definite mass. Small volume perihepatic ascites. No evidence of abdominal aortic aneurysm. Patent IVC. Minimal right pleural effusion. The right kidney measures 10.6 cm in length. No mass or hydronephrosis. IMPRESSION Impression: 1. Nodular liver consistent with cirrhosis. No focal liver mass identified. 2. Mild gallbladder wall thickening is nonspecific in the setting of hepatic disease. No gallstones or findings to suggest acute cholecystitis. 3. Mild dilatation of the common bile duct and pancreatic duct. No definite pancreatic mass identified but clinical correlation recommended. If there is biochemical evidence of biliary obstruction, follow-up or further evaluation with MRCP/ERCP should be considered. 4. Small volume perihepatic ascites. Minimal right pleural effusion. Reading Doctor: Ashanti Devries Electronic Signature by: Ashanti DevriesDRUG SCREEN, [id number] 07:44:15 Test Item Value Reference Range Comments Barbiturates, urine (test code = BELOW DETECTION LIMIT 11540-4) Benzodiazepines, urine (test code = ABOVE DETECTION 36148-5) LIMITThis is an unconfirmed screening result. Cross reactions with other drugs [facility]. Consult lab for details. Unconfirmed screening results should not beused for non-medical purposes. Cocaine, urine (test code = 96657-4) BELOW DETECTION LIMIT Opiates, urine (test code = 12678-2) BELOW DETECTION LIMIT Amphetamines, urine (test code = BELOW DETECTION LIMIT 24431-8) Phencyclidine (PCP), urine (test code = BELOW DETECTION LIMIT 95734-6) Tetrahydrocannabinol (THC) (test code = BELOW DETECTION LIMIT 43008-7) Methadone, urine (test code = 24221-8) BELOW DETECTION LIMIT Methylenedioxymethamphetamine (MDMA) BELOW DETECTION LIMIT (test code = 13055-9) URINALYSIS, [id number] 07:19:38 Test Item Value Reference Range Comments Appearance, urine (test code = CLEAR CLEAR^CLEAR 5767-9) Color, urine (test code = YELLOW YEL^YELLOW 5778-6) Specific [place], urine (test 1.011 1.005-1.030 code = 5811-5) pH, urine (test code = 5803-2) 6.0 4.5-8.0 Protein, urine (test code = NEG NEG^NEG 5804-0) Glucose, urine (test code = NEG NEG^NEG 5792-7) Ketones, urine (test code = NEG NEG^NEG 5797-6) Hemoglobin, urine (test code = NEG NEG^NEG 5794-3) Urobilinogen, urine (test code = 1+ NORM^NORM 17760-7) Bilirubin, urine (test code = NEG NEG^NEG 5770-3) Nitrites, urine (test code = NEG NEG^NEG 5802-4) Leukocyte Esterase, urine (test NEG NEG^NEG code = 5799-2) Microscopic, Urine (test code = Microscopic examination not 146396) indicated Lab Interpretation (test code = Abnormal 68935-8) TROPONIN [id number] 06:03:29 Test Item Value Reference Range Comments Troponin I (test code = 96889-1) <0.03 0-0.03 [id number] 05:52:11 Test Item Value Reference Range Comments aPTT (test code = 94482-1) 39.3 sec 25.1- 36.5 sec Lab Interpretation (test code = 12757-9) Abnormal [id number] 05:43:50 Test Item Value Reference Range Comments Ammonia (test code = 49890-9) 35 umol/L 18-72 LACTIC [id number] 05:35:03 Test Item Value Reference Range Comments Lactic Acid (test code = 2524-7) 2.0 mmol/L 0.5-2 Protein Electrophoresis, Serum With Reflex to HERACLIO, Serum ([id number]) (37161) 2017-03-04 00:00:00 Test Item Value Reference Range Comments Beta Globulin (test code = 2871-2) 1.1 g/dL 0.7-1.3 Globulin, Total (test code = 01053-4) 5.3 g/dL 2.2-3.9 Gamma Globulin (test code = 2874-6) 3.3 g/dL 0.4-1.8 Yncro-8-Yiiwqtsr (test code = 2865-4) 0.2 g/dL 0.0-0.4 Please note: (test code = 309275) Comment Albumin (test code = 2862-1) 2.8 g/dL 2.9-4.4 A/G Ratio (test code = 1759-0) 0.5 0.7-1.7 Ggvpr-1-Zjvxhftw (test code = 2868-8) 0.7 g/dL 0.4-1.0 M-Jerrell (test code = 90094-9) Not Observed g/dL Not Observed CBC With Differential/Platelet ([id number]) (19159)2017-03-04 00:00:00 Test Item Value Reference Range Comments Hematocrit (test code = 4544-3) 35.1 % 37.5-51.0 Lymphs (Absolute) (test code = 731-0) 1.9 x10E3/uL 0.7-3.1 Baso (Absolute) (test code = 704-7) 0.0 x10E3/uL 0.0-0.2 MCV (test code = 787-2) 107 fL 79-97 Hemoglobin (test code = 718-7) 11.4 g/dL 12.6-17.7 Immature Granulocytes (test code = 61849-8) 0 % Lymphs (test code = 736-9) 50 % Neutrophils (Absolute) (test code = 751-8) 1.5 x10E3/uL 1.4-7 .0 MCHC (test code = 786-4) 32.5 g/dL 31.5-35.7 Immature Grans (Abs) (test code = 13826-2) 0.0 x10E3/uL 0.0-0 .1 MCH (test code = 785-6) 34.8 pg 26.6-33.0 RBC (test code = 789-8) 3.28 x10E6/uL 4.14-5.80 Basos (test code = 706-2) 1 % WBC (test code = 6690-2) 3.8 x10E3/uL 3.4-10.8 Platelets (test code = 777-3) 95 x10E3/uL 150-379 Hematology Comments: (test code = 69907-2) Note: Neutrophils (test code = 770-8) 38 % Monocytes (test code = 5905-5) 8 % Eos (Absolute) (test code = 711-2) 0.1 x10E3/uL 0.0-0.4 RDW (test code = 788-0) 13.1 % 12.3-15.4 Eos (test code = 713-8) 3 % Monocytes(Absolute) (test code = 742-7) 0.3 x10E3/uL 0.1-0.9 CMP ([id number]) (91583)2017-03-04 00:00:00 Test Item Value Reference Range Comments Alkaline Phosphatase, S (test code = 6768-6) 247 IU/L 39- 117 BUN/Creatinine Ratio (test code = 3097-3) 14 9-20 Sodium, Serum (test code = 2951-2) 138 mmol/L 134-144 AST (SGOT) (test code = 1920-8) 238 IU/L 0-40 Calcium, Serum (test code = 89580-4) 8.6 mg/dL 8.7-10.2 A/G Ratio (test code = 1759-0) 0.6 1.2-2.2 eGFR If NonAfricn Am (test code = 81632-2) 95 mL/min/1.73 >59 Bilirubin, Total (test code = 1975-2) 1.1 mg/dL 0.0-1.2 Globulin, Total (test code = 73627-9) 5.1 g/dL 1.5-4.5 Chloride, Serum (test code = 2075-0) 98 mmol/L 96-106 Creatinine, Serum (test code = 2160-0) 0.87 mg/dL 0.76-1.27 Carbon Dioxide, Total (test code = 8-9) 22 mmol/L 18-29 BUN (test code = 3094-0) 12 mg/dL 6-24 ALT (SGPT) (test code = 1742-6) 73 IU/L 0-44 Protein, Total, Serum (test code = 2885-2) 8.1 g/dL 6.0-8 .5 eGFR If Africn Am (test code = 30953-8) 110 mL/min/1.73 >59 Albumin, Serum (test code = 1751-7) 3.0 g/dL 3.5-5.5 Potassium, Serum (test code = 2823-3) 4.0 mmol/L 3.5-5.2 Glucose, Serum (test code = 2345-7) 82 mg/dL 65-99 Sedimentation Rate-Westergren ([id number]) (05438)2017-03-04 00:00:00 Test Item Value Reference Range Comments Sedimentation Rate-Westergren (test code = 4537-7) 73 mm/hr 0-30 FIT (Occult Blood Fecal IA) ([id number]) (53489)2017-02-18 00:00:00 Test Item Value Reference Range Comments Occult Blood, Fecal, IA (test code = 31459-0) Positive Ne gative HIV Screen ([id number]) (73817)2017-02-14 00:00:00 Test Item Value Reference Range Comments HIV Screen 4th Generation wRfx (test code = Non Reactive Non Reactive 88235-3) CBC With Differential/Platelet ([id number]) (60727)2017-02-12 00:00:00 Test Item Value Reference Range Comments Neutrophils (Absolute) (test code = 751-8) 1.2 x10E3/uL 1.4-7 .0 WBC (test code = 6690-2) 3.8 x10E3/uL 3.4-10.8 Baso (Absolute) (test code = 704-7) 0.0 x10E3/uL 0.0-0.2 Lymphs (Absolute) (test code = 731-0) 1.7 x10E3/uL 0.7-3.1 MCV (test code = 787-2) 110 fL 79-97 MCHC (test code = 786-4) 31.2 g/dL 31.5-35.7 Immature Granulocytes (test code = 60103-8) 0 % Lymphs (test code = 736-9) 44 % RBC (test code = 789-8) 3.29 x10E6/uL 4.14-5.80 Platelets (test code = 777-3) 155 x10E3/uL 150-379 Hematocrit (test code = 4544-3) 36.2 % 37.5-51.0 Hemoglobin (test code = 718-7) 11.3 g/dL 12.6-17.7 Immature Grans (Abs) (test code = 43798-5) 0.0 x10E3/uL 0.0-0 .1 Monocytes(Absolute) (test code = 742-7) 0.8 x10E3/uL 0.1-0.9 RDW (test code = 788-0) 13.1 % 12.3-15.4 Eos (test code = 713-8) 3 % Neutrophils (test code = 770-8) 30 % MCH (test code = 785-6) 34.3 pg 26.6-33.0 Eos (Absolute) (test code = 711-2) 0.1 x10E3/uL 0.0-0.4 Monocytes (test code = 5905-5) 22 % Basos (test code = 706-2) 1 % Hematology Comments: (test code = 34778-3) Note: CMP ([id number]) (00476)2017-02-12 00:00:00 Test Item Value Reference Range Comments Chloride, Serum (test code = 2075-0) 102 mmol/L 96-106 Sodium, Serum (test code = 2951-2) 141 mmol/L 134-144 AST (SGOT) (test code = 1920-8) 91 IU/L 0-40 BUN (test code = 3094-0) 11 mg/dL 6-24 ALT (SGPT) (test code = 1742-6) 41 IU/L 0-44 BUN/Creatinine Ratio (test code = 3097-3) 14 9-20 Carbon Dioxide, Total (test code = 2028-9) 24 mmol/L 18-29 eGFR If Africn Am (test code = 42413-8) 113 mL/min/1.73 >59 Albumin, Serum (test code = 1751-7) 3.3 g/dL 3.5-5.5 Creatinine, Serum (test code = 2160-0) 0.81 mg/dL 0.76-1.27 Calcium, Serum (test code = 30505-2) 8.6 mg/dL 8.7-10.2 Alkaline Phosphatase, S (test code = 6768-6) 179 IU/L 39- 117 Potassium, Serum (test code = 2823-3) 4.9 mmol/L 3.5-5.2 eGFR If NonAfricn Am (test code = 46052-0) 98 mL/min/1.73 >59 Bilirubin, Total (test code = 1975-2) 0.7 mg/dL 0.0-1.2 Protein, Total, Serum (test code = 2885-2) 8.4 g/dL 6.0-8 .5 A/G Ratio (test code = 1759-0) 0.6 1.2-2.2 Globulin, Total (test code = 75648-3) 5.1 g/dL 1.5-4.5 Glucose, Serum (test code = 2345-7) 67 mg/dL 65-99 TSH+Free T4 ([id number])2017-02-12 00:00:00 Test Item Value Reference Range Comments T4,Free(Direct) (test code = 3024-7) 0.95 ng/dL 0.82-1.77 TSH (test code = 55285-4) 1.770 uIU/mL 0.450-4.500 Sedimentation Rate-Westergren ([id number]) (94723)2017-02-12 00:00:00 Test Item Value Reference Range Comments Sedimentation Rate-Westergren (test code = 4537-7) 112 mm/hr 0-30 Vitamin D 25-Hydroxy ([id number]) (15768)2017-02-12 00:00:00 Test Item Value Reference Range Comments Vitamin D, 25-Hydroxy (test code = 54582-0) 15.0 ng/mL 30.0 -100.0 Lipid Panel ([id number]) (17438)2017-02-12 00:00:00 Test Item Value Reference Range Comments Cholesterol, Total (test code = 2093-3) 95 mg/dL 100-199 LDL Cholesterol Calc (test code = 29670-9) 28 mg/dL 0-99 HDL Cholesterol (test code = 2085-9) 49 mg/dL >39 VLDL Cholesterol Norbert (test code = 79649-6) 18 mg/dL 5-40 Triglycerides (test code = 2571-8) 89 mg/dL 0-149 Assessments Condition Name Status Diagnosis Date Treating Clinici an Headache Active Constipation Active COPD (chronic obstructive pulmonary disease) Active Cerumen impaction Active Body mass index (BMI) of 20.0-20.9 in adult Active Left upper quadrant pain Active Dysphagia, unspecified Active Abnormal weight loss Active Other fecal abnormalities Active Occult blood in stools Active Unintentional weight loss of more than 10 Active pounds Productive cough Active Unintentional weight loss of more than 10 Active pounds Productive cough Active Adult body mass index less than 19 Active Adult body mass index less than 19 Active Encounter for health education Active Encounter for health education Active Encounters Start End Encounter Admission Attending Care Care Encounter Date/Time Date/Time Type Type Clinicians Facility Department ID 2019-05-17 Inpatient U LYUDMILA [facility] [id number] 04:11[facility] 2019-12-17 2019-12-17 Outpatient [facility]ANT [facility] [id number] 00:00:00 00:00:00 2019-05-17 2019-05-22 Inpatient [facility]ANT [facility] [id number] 04:11:00 16:40:00 2019-05-21 2019-05-21 Inpatient [facility]ANT [facility] [id number] 13:21:00 13:49:00 2017-03-20 2017-03-20 Outpatient Anupam [facility] [id number] 07:45:00 07:45:00 [facility] 2017-03-06 2017-03-06 [facility] [id number] 16:00:00 16:00:00 Children [id number] s [id number] and [id number] , [place] 2017-02-28 2017-02-28 Outpatient PRESTON Bo [place] [facility] [id number] 08:07:00 08:07:00 [facility] 2017-02-11 2017-02-11 Outpatient Anupam [facility] [place] [facility] [place] [id number] 09:58:00 09:58:00 [facility] Payers Payer Name Policy Type Policy Number Effective Date Expiration D ate [place] [id number] [place] xxxxxxxxxx ACCESSxxxxxxxxxxEffective for all [phone] Plan of Treatment Planned Activity Planned Date Details Comments Future Scheduled Test [code = ] Future Scheduled Test [code = ] Future Scheduled Test [code = ] Future Scheduled Test [code = ] Future Scheduled Test [code = ] Future Scheduled Test [code = ] Instructions Discharge Instr - Other Orders C Sita pulido, TARGETEER - 12:39 PM EDTALCOHOL USE DISORDER/SUBST ANCE USE DISORDER FOLLOW UP [facility] [address] [place] [address] 24-Hour Access to Care Line: [phone] Shala BS W, CSACCoordinator Substance [phone] [phone] HOME HEALT H:Name of Agency: [facility] [place] Date: Satiscipline:Joby Beal assistance representative will be contactin g anthony prior to your first home visit.F or any questions regarding your service s, please call them directly at : [phone] zelalem d by Sita Mata, TARGETEER at 05/22/2019 3:08 PM EDTAttachment sThe following attachments cannot be sent through Care Everywhere.Cirrhosi s of the Liver, Discharge Instructions fo r (ERITREAN)Cirrhosis, Understandin g (ERITREAN) Instructions Discharge Instr - Other Orders Sita Herrera, TARGETEER - 12:39 PM EDTALCOHOL USE DISORDER/SUBST ANCE USE DISORDER FOLLOW UP [facility] [address] [place] [address] 24-Hour Access to Care Line: Terry Shala BS W, CSACCoordinator Substance [phone] [phone] HOME HEALT H:Name of Agency: [facility] Care Date: Satiscipline:Joby Beal assistance representative will be contactin g anthony prior to your first home visit.F or any questions regarding your service s, please call them directly at : [phone] zelalem d by Sita Mata, TARGETEER at 05/22/2019 3:08 PM EDTAttachment sThe following attachments cannot be sent through Care Everywhere.Cirrhosi s of the Liver, Discharge Instructions fo r (ERITREAN)Cirrhosis, Understandin g (ERITREAN) Social History Social Habit Start Date Stop Date Comments Cigarettes smoked current (pack per 2019-05-22 00:00:00 00:00:00 day) - Reported Alcohol intake 2019-05-22 00:00:00 2019-05-22 00:00:00 History SDOH Financial 2019-05-19 00:00:00 2019-05-19 00:00:00 History SDOH Food Worry 2019-05-19 00:00:00 2019-05-19 00:00:00 History SDOH Food Scarcity 2019-05-19 00:00:00 2019-05-19 00:00: 00 History SDOH Transport Med 2019-05-19 00:00:00 2019-05-19 00:00: 00 History SDOH Transport Non-Med 2019-05-19 00:00:00 2019-05-19 00 :00:00 Smoking Status Start Date Stop Date Current every day smoker 2019-05-22 00:00:00 2019-05-22 00:0 0:00 Vital Signs Vital Name Observation Time Observation Value Comments Systolic blood pressure 2019-05-22 16:00:00 129 mm[Hg] Diastolic blood pressure 2019-05-22 16:00:00 80 mm[Hg] Heart rate 2019-05-22 16:00:00 64 /min Body temperature 2019-05-22 16:00:00 36.39 Olya Respiratory rate 2019-05-22 16:00:00 20 /min Oxygen saturation in Arterial blood by 2019-05-22 11:41:00 96 % Pulse oximetry Body weight 2019-05-21 20:00:00 68.9 kg BMI 2019-05-21 20:00:00 23.10 kg/m2 Body height 2019-05-18 14:00:00 172.7 cm Hospital Discharge Instructions Discharge Instr - Other Orders Sita Mata, TARGETEER - 05/20/2019 12:39 PM EDTALCOHOL USE DISORDER/SUBSTANCE USE DISORDER FOLLOW UP [facility] [address] [place], [place] [id number] 24-Hour Access to Care Line: Yogesh ELIZABETH, [facility] Coordinator Substance Abuse [phone] Pager [phone] HOME HEALTH: Name of Agency: [facility] Start of Care Date: SatMay 23 Discipline:Nursing A assistance representative will be contacting you prior to your first home visit. For any questionsregarding your services, please call them directly at : [phone] AttachmentsThe following attachments cannot be sent through Care Everywhere.Cirrhosis of the Liver, Discharge Instructions for (ERITREAN)Cirrhosis, Understanding (ERITREAN)documented in this encounter
== END 2020-06-28 21:05 | disposition home or self-care (01) ==
LOC: ER 15:30
DX: R07.9 Chest pain, unspecified (principal); J44.9 Chronic obstructive pulmonary disease, unspecified; R51.9 Headache, unspecified; R05 Cough; F17.200 Nicotine dependence, unspecified, uncomplicated; D50.9 Iron deficiency anemia, unspecified; Z79.899 Other long term (current) drug therapy; Z87.01 Personal history of pneumonia (recurrent); Z88.0 Allergy status to penicillin; Z91.013 Allergy to seafood; Z91.018 Allergy to other foods; Z20.828 Contact with and (suspected) exposure to other viral communicable diseases
CPT/HCPCS: 93005; 94640; 99285; 96374; 36415; 85025; 80053; 84484; 71045; 93010; U0003; A9270 ×2; J1885; C9803; 87635; J7512

== ENCOUNTER → 2020-07-18 | Outpatient (CLI) | payer MEDICARE, MEDICAID ==
[2020-07-18 09:12] LABS: HEMATOCRIT 29.1 % (37.9-51.0); HEMOGLOBIN 8.8 g/dL (13.5-17.0); MEAN CORPUSCULAR HEMOGLOBIN 23.2 pg (27.0-33.4); MEAN CORPUSCULAR HGB CONC 30.4 g/dL (32.0-36.0); MEAN CORPUSCULAR VOLUME 76 fl (80-97); PLATELET COUNT 166 10^3/uL (150-450); RED CELL DISTRIBUTION WIDTH 19.1 % (11.5-14.0); WHITE BLOOD COUNT 4.1 10^3/uL (4.0-10.5)
[2020-07-18 09:27] LABS: ANION GAP 9 (5-19); BLOOD UREA NITROGEN 14 mg/dL (7-20); CALCIUM 9.3 mg/dL (8.4-10.2); CARBON DIOXIDE 25 mmol/L (22-30); CHLORIDE 106 mmol/L (98-107); GLUCOSE 91 mg/dL (75-110); POTASSIUM 4.9 mmol/L (3.6-5.0)
[2020-07-18 10:04] LABS: ABSOLUTE LYMPHOCYTES# (MANUAL) 2.5 10^3/uL (0.5-4.7); ABSOLUTE MONOCYTES # (MANUAL) 0.2 10^3/uL (0.1-1.4); BASOPHILS % (MANUAL) 0 % (0-2); EOSINOPHILS % (MANUAL) 3 % (0-6); LYMPHOCYTES % (MANUAL) 57 % (13-45); METAMYELOCYTES % (MANUAL) 1 % (0-1); MONOCYTES % (MANUAL) 5 % (3-13); SEGMENTED NEUTROPHILS % (MAN) 31 % (42-78); TOTAL CELLS COUNTED 100
[2020-07-18 10:05] LABS: RBC MORPHOLOGY COMMENT NORMO-CYTIC/CHROMIC
[2020-07-18 10:06] LABS: PLATELET COMMENT ADEQUATE
== END ==
LOC: OD 08:34
PROVIDERS: ATTEND Family Medicine Geriatric Medicine
DX: D64.9 Anemia, unspecified (principal); Z79.899 Other long term (current) drug therapy
CPT/HCPCS: 36415; 80048; 82140; 83735; 85025

== ENCOUNTER 2020-08-19 17:17 | Emergency (ER) | payer MEDICARE, MEDICAID ==
[2020-08-19 17:35] VITALS: BP 148/67
[2020-08-19] MEDS ORDERED: ACETAMINOPHEN 325 MG TABLET PO ONE (18:33)
--- NOTE | 2020-08-19 19:49 | ER Document Report ---
ED Medical Screen (RME) - General Stated Complaint: COUGH WITH CHEST PAINS RIGHT SIDE Time Seen by Provider: 08/19/20 18:26 Primary Care Provider: SAMMI SARABIA MD [Primary Care Provider] - Follow up as needed Notes: Patient is a 59-year-old male who presents to the emergency department with a chief complaint of cough, congestion, and generally not feeling well. He does not know if he has had any contact with anybody who has tested positive for COVID-19. Patient currently has a fever of 102.1. Exam: Fever 102.1. I have greeted and performed a rapid initial assessment of this patient. A comprehensive ED assessment and evaluation of the patient, analysis of test results and completion of medical decision making process will be conducted by an additional ED providers. TRAVEL OUTSIDE OF THE [place] IN LAST 30 DAYS: No - Related Data Allergies/Adverse Reactions: Penicillins Allergy (Unknown, Verified 06/28/20 17:26) shrimp Allergy (Verified 06/28/20 17:26) strawberry Allergy (Verified 06/28/20 17:26) Past Medical History - Past Medical History Cardiac Medical History: Denies: Hx Coronary Artery Disease, Hx Heart Attack, Hx Hypertension Pulmonary Medical History: Reports: Hx Asthma, Hx Bronchitis, Hx COPD, Hx Pneumonia - SEVERAL TIMES Neurological Medical History: Denies: Hx Cerebrovascular Accident, Hx Seizures Renal/ Medical History: Denies: Hx Peritoneal Dialysis Musculoskeltal Medical History: Denies Hx Arthritis Past Surgical History: Reports: Hx Orthopedic Surgery - right hip replacement - Immunizations Immunizations up to date: No Hx Diphtheria, Pertussis, Tetanus Vaccination: Yes Physical Exam - Vital signs Vitals: Temp Pulse Resp BP Pulse Ox 102.9 F H 127 H 22 H 148/67 H 92 08/19/20 17:32 08/19/20 17:32 08/19/20 17:32 08/19/20 17:32 08/19/20 17:32 Course - Vital Signs Vital signs: Temp Pulse Resp BP Pulse Ox 102.9 F H 127 H 22 H 148/67 H 92 08/19/20 17:32 08/19/20 17:32 08/19/20 17:32 08/19/20 17:32 08/19/20 17:32 Doctor's Discharge - Discharge Referrals: SAMMI SARABIA MD [Primary Care Provider] - Follow up as needed
== END 2020-08-19 20:07 | disposition left against medical advice (07) ==
LOC: ER 17:17
DX: R05 Cough (principal); R07.9 Chest pain, unspecified; R50.9 Fever, unspecified; Z88.0 Allergy status to penicillin; Z91.013 Allergy to seafood
CPT/HCPCS: 99281; A9270

== ENCOUNTER 2020-08-21 10:21 | Emergency (ER) | payer MEDICARE, MEDICAID ==
--- NOTE | 2020-08-21 10:34 | EKG REPORT ---
SEVERITY:- ABNORMAL ECG - SINUS TACHYCARDIA WITH IRREGULAR RATE 100-161 PROBABLE LVH WITH SECONDARY REPOL ABNRM : Confirmed by: Elias Romero MD 21-Aug-2020 10:34:09
[2020-08-21] MEDS ORDERED: ACETAMINOPHEN 325 MG TABLET PO ONE ×2 (11:02→13:43)
--- NOTE | 2020-08-21 11:04 | ER Document Report ---
ED Medical Screen (RME) - General Chief Complaint: Chest Pain Stated Complaint: CHEST PAIN Primary Care Provider: SAMMI SARABIA MD [Primary Care Provider] - Follow up as needed TRAVEL OUTSIDE OF THE [place] IN LAST 30 DAYS: No - HPI Notes: 08/21/20 11:03 Rapid Medical Exam HPI: This is a 59-year-old male who presented complaint of chest pains, shortness of breath, nausea for the past couple days. No history of cardiac issues. Patient was found to be febrile at 101.3 in the ED no known Covid contacts. Patient denies cardiac history. Physical Exam: GENERAL: Well-appearing, well-nourished and in no acute distress. HEAD: Atraumatic, normocephalic. ENT: Moist mucous membranes. RESP: Respirations even and unlabored CV-tachy NEURO: No focal neurological deficits. Moves all extremities spontaneously and on command. My involvement in this patients care was limited to a rapid initial assessment. A comprehensive ED assessment and evaluation of the patient, analysis of test results, treatment, and completion of the medical decision making process will be performed by other ER providers. - Related Data Allergies/Adverse Reactions: Penicillins Allergy (Unknown, Verified 08/21/20 10:53) shrimp Allergy (Verified 08/21/20 10:53) strawberry Allergy (Verified 08/21/20 10:53) Home Medications: omeprazole. magnesium oxide Past Medical History - Social History Chew tobacco use (# tins/day): No Frequency of alcohol use: None Drug Abuse: None - Past Medical History Cardiac Medical History: Denies: Hx Coronary Artery Disease, Hx Heart Attack, Hx Hypertension Pulmonary Medical History: Reports: Hx Asthma, Hx Bronchitis, Hx COPD, Hx Pneumonia - SEVERAL TIMES Neurological Medical History: Denies: Hx Cerebrovascular Accident, Hx Seizures Renal/ Medical History: Denies: Hx Peritoneal Dialysis Musculoskeltal Medical History: Denies Hx Arthritis Past Surgical History: Reports: Hx Orthopedic Surgery - right hip replacement - Immunizations Immunizations up to date: No Hx Diphtheria, Pertussis, Tetanus Vaccination: Yes Physical Exam - Vital signs Vitals: Temp Pulse Resp BP Pulse Ox 101.3 F H 130 H 18 123/56 L 95 08/21/20 10:45 08/21/20 10:45 08/21/20 10:45 08/21/20 10:45 08/21/20 10:45 Course - Vital Signs Vital signs: Temp Pulse Resp BP Pulse Ox 101.3 F H 130 H 18 123/56 L 95 08/21/20 10:45 08/21/20 10:45 08/21/20 10:45 08/21/20 10:45 08/21/20 10:45 Doctor's Discharge - Discharge Referrals: SAMMI SARABIA MD [Primary Care Provider] - Follow up as needed
--- NOTE | 2020-08-21 11:35 | RADIOLOGY REPORT (SQ) ---
EXAM DESCRIPTION: CHEST SINGLE VIEW IMAGES COMPLETED DATE/TIME: 08/21/2020 11:26 am REASON FOR STUDY: chest pain COMPARISON: 06/28/2020 EXAM PARAMETERS: NUMBER OF VIEWS: One view. TECHNIQUE: Single frontal radiographic view of the chest acquired. RADIATION DOSE: NA LIMITATIONS: None. FINDINGS: LUNGS AND PLEURA: Subsegmental airspace disease in the right lung probably superior segmen t right lower lobe. There is a background of emphysema. No effusions. MEDIASTINUM AND HILAR STRUCTURES: No masses. Contour normal. HEART AND VASCULAR STRUCTURES: Heart normal in size. Normal vasculature. BONES: No acute findings. HARDWARE: None in the chest. OTHER: No other significant finding. IMPRESSION: Right lower lobe pneumonia. TECHNICAL DOCUMENTATION: JOB ID: [id number] 2010 [employer]- All Rights Reserved Reading location - IP/workstation name: [email or web address]
[2020-08-21] MEDS: NORMAL SALINE 1000 ML 1,000 ML IV PRN ×2 (11:50→12:48)
[2020-08-21] MEDS ORDERED: LEVOFLOXACIN 750 MG/D5W RTU 750 MG/150 ML RTUPB IV ONE (11:53)
[2020-08-21] MEDS ORDERED: DEXAMETHASONE SOD PHOS INJ 10 MG/1 ML VIAL IV ONE (11:58)
--- NOTE | 2020-08-21 12:05 | ER Document Report ---
ED General - General Chief Complaint: Chest Pain Stated Complaint: CHEST PAIN Time Seen by Provider: 08/21/20 11:31 Primary Care Provider: SAMMI SARABIA MD [Primary Care Provider] - Follow up as needed TRAVEL OUTSIDE OF THE [place] IN LAST 30 DAYS: No - HPI Notes: Chief complaint: Cough, fever and chest pain History of present illness: 59-year-old male with history of alcoholic cirrhosis who says he is currently abstinent from alcohol for several months presents now with cough productive of scant amounts of white sputum, pleuritic chest pain and generalized weakness. He denies Covid exposure. Says he is not traveled outside the area. He has been a heavy smoker but says that he stopped smoking about 10 days ago. Current symptoms began about 3 days ago. Denies hemoptysis. - Related Data Allergies/Adverse Reactions: Penicillins Allergy (Unknown, Verified 08/21/20 10:53) shrimp Allergy (Verified 08/21/20 10:53) strawberry Allergy (Verified 08/21/20 10:53) Home Medications: omeprazole. magnesium oxide Past Medical History - General Information source: Patient, [facility] Records - Social History Smoking Status: Former Smoker Chew tobacco use (# tins/day): No Frequency of alcohol use: None Drug Abuse: None Lives with: Alone Family History: Reviewed & Not Pertinent - Past Medical History Cardiac Medical History: Reports: None Denies: Hx Coronary Artery Disease, Hx Heart Attack, Hx Hypertension Pulmonary Medical History: Reports: Hx Asthma, Hx Bronchitis, Hx COPD, Hx Pneumonia - SEVERAL TIMES Neurological Medical History: Denies: Hx Cerebrovascular Accident, Hx Seizures Endocrine Medical History: Reports: Other - History of "borderline diabetes" Renal/ Medical History: Denies: Hx Peritoneal Dialysis GI Medical History: Reports: Hx Gastritis Musculoskeletal Medical History: Denies Hx Arthritis Past Surgical History: Reports: Hx Orthopedic Surgery - right hip replacement - Immunizations Immunizations up to date: No Hx Diphtheria, Pertussis, Tetanus Vaccination: Yes Review of Systems - Review of Systems Notes: Constitutional: As per HPI. HENT: Negative for sore throat. Eyes: Negative for visual changes. Cardiovascular: As per HPI. Respiratory: As per HPI. Gastrointestinal: Negative for abdominal pain, vomiting or diarrhea. Genitourinary: Negative for dysuria. Musculoskeletal: Negative for back pain. Skin: Negative for rash. Neurological: Negative for headaches, weakness or numbness. 10 point ROS negative except as marked above and in HPI. Physical Exam - Vital signs Vitals: Temp Pulse Resp BP Pulse Ox 101.3 F H 130 H 18 123/56 L 95 08/21/20 10:45 08/21/20 10:45 08/21/20 10:45 08/21/20 10:45 08/21/20 10:45 - Notes Notes: GENERAL: Male patient approximately stated age and rattling cough. SKIN: Good turgor no rashes. HEAD: Normocephalic atraumatic. EYES: PERRLA. EOMI. Conjunctivae and sclerae clear. EARS: CANALS AND TMS CLEAR. NOSE: CLEAR. MOUTH: Moist mucosa. Good dentition. No stridor or edema. No drooling. NECK: Supple. No masses or thyromegaly. No adenopathy. Carotids 2+ without bruits. No JVD. BACK: Symmetrical without tenderness. CHEST: Respirations unlabored. Rattling cough. Scattered rhonchi bilaterally. HEART: Tachycardic irregularly irregular rhythm. No murmur gallop or rub. ABDOMEN: Soft nontender without masses, organomegaly or rebound. Bowel sounds normally active. No bruits. GENITALIA: Deferred. EXTREMITIES: No edema. No calf tenderness. Cap refill less than 1.5 seconds. Dorsalis pedis and posterior tibial pulses 3+ and symmetrical. NEUROLOGICAL: GCS 15. Alert and oriented x3. Normal gait. Fluent speech. Cranial nerves II through XII intact. Sensorimotor and cerebellar normal. Normal tone. PSYCHIATRIC: Appropriate affect. Course - Re-evaluation Re-evalutation: 08/21/20 14:51 Radiologist is reading a right lower lobe infiltrate on this man but in reviewing the chest x-ray myself I think there is also some patchy infiltrate on the left side as well. I would be strongly suspicious of Covid. A Covid nasal swab has been sent with results pending and not to be reported within the next 24 hours. He is penicillin allergic. I gave him a dose of Levaquin IV. Because of suspicion of Covid I have also given him dexamethasone IV. He was tachycardic and looked dehydrated when he came in. I have given him a liter of normal saline IV. His pulse rate is now down below 100. His troponin is normal. He is chronically anemic has a hemoglobin of 8.7 g. His creatinine at baseline is 0.88 and is up to 1.58 today. His mentation is normal. Oxygenation on room air is normal. I discussed possible hospital admission with the on-call hospitalist Dr. Yan and he does not currently feel patient requires admission. He recommends we give the patient additional hydration and send him out on oral steroids and IV antibiotics with follow-up in the emergency department within the next 24 to 48 hours or immediate return if there is worsening. - Vital Signs Vital signs: Temp Pulse Resp BP Pulse Ox 101.3 F H 130 H 15 120/64 94 08/21/20 10:45 08/21/20 10:45 08/21/20 14:00 08/21/20 14:00 08/21/20 14:00 - Laboratory Results Result Diagrams: 08/21/20 11:50 08/21/20 11:50 Laboratory Results Interpreted: 08/21/20 08/21/20 11:50 11:50 WBC 14.5 H RBC 3.67 L Hgb 8.7 L Hct 28.0 L MCV 76 L MCH 23.7 L MCHC 31.1 L RDW 19.1 H Seg Neuts % (Manual) 83 H Abs Neuts (Manual) 12.0 H Sodium 134.0 L Carbon Dioxide 21 L BUN 21 H Creatinine 1.58 H Est GFR ( Amer) 54 L Est GFR (MDRD) Non-Af 45 L Glucose 126 H Total Bilirubin 1.6 H Direct Bilirubin 0.5 H Alkaline Phosphatase 135 H Critical Laboratory Results Reviewed: Yes Attending or Supervising Physician who Reviewed Labs: MARCELO STERN - Radiology Results Radiology Results Interpreted: 08/21/20 15:36 Chest X-Ray 08/21/20 11:00 IMPRESSION: Right lower lobe pneumonia. Critical Radiology Results Reviewed: Yes Attending or Supervising Physician who Reviewed Radiology: MARCELO STERN Discharge - Discharge Clinical Impression: Suspected 2019 novel coronavirus infection, Dehydration, Anemia in chronic illness Pneumonia Qualifiers: Pneumonia type: due to unspecified organism Laterality: right Lung location: lower lobe of lung Qualified Code(s): J18.9 - Pneumonia, unspecified organism Condition: Stable Disposition: HOME, SELF-CARE Instructions: COVID-19 Guidance for Persons Under Investigation Additional Instructions: Dehydration Dehydration can result from vomiting or diarrhea, fever, or decreased intake of fluids. If severe, hospitalization and intravenous fluids may be required. Most cases are treated at home with fluids by mouth. For the next 24 hours, drink lots of clear fluids. In mild cases, this can be soda pop or sports drinks. For more severe dehydration, the doctor may recommend special fluids such as Pedialyte or Lytren. Try to get three liters (3 quarts) of fluid per day. If vomiting occurs, continue to drink the fluids frequently (every 15 to 20 minutes), but in small amounts (one or two ounces). Depending on the type of dehydration, the doctor may prescribe antinausea medicine or potassium replacements. Call the doctor or return for re-examination if you become progressively weak, vomit repeatedly, or have other new symptoms. Pneumonia Your examination indicates that you have pneumonia. This is an infection of the lung tissue, usually caused by bacteria or a virus. Symptoms include cough, fever, shaking chills, chest pain, shortness of breath, and coughing up bloody sputum. Treatment for bacterial pneumonia includes rest, antibiotics for 10 to 14 days, increasing your clear liquid intake, a cool mist humidifier at your bedside, and fever medication. Often, a repeat chest X-ray is performed in a few weeks--even if you feel better--to ascertain whether the infection has completely resolved and no underlying lung problem is present. You should call the physician if you develop persistent vomiting, high fever that does not respond to fever medication, increasing shortness of breath, confusion, or lethargy. Also, failure to improve within two to three days is an indication for re-examination. Return here as needed for new or worsening symptoms: Pain that is worsening or unimproved Uncontrolled vomiting High fever or shaking chills Overall worsening Back to the hospital for the next 24 to 48 hours to have blood work rechecked Prescriptions: Prednisone [Deltasone 20 mg Tablet] 2 tab PO DAILY 5 Days tablet Levofloxacin [Levaquin 750 mg Tablet] 750 mg PO DAILY #10 tablet Albuterol Sulfate [Proair HFA Inhalation Aerosol 8.5 gm MDI] 2 puff IH Q4H PRN #1 mdi PRN Reason: Referrals: SAMMI SARABIA MD [Primary Care Provider] - Follow up as needed
[2020-08-21 12:21] LABS: HEMOGLOBIN 8.7 g/dL (13.5-17.0); MEAN CORPUSCULAR HEMOGLOBIN 23.7 pg (27.0-33.4); MEAN CORPUSCULAR HGB CONC 31.1 g/dL (32.0-36.0); MEAN CORPUSCULAR VOLUME 76 fl (80-97); PLATELET COUNT 168 10^3/uL (150-450); RED BLOOD COUNT 3.67 10^6/uL (4.35-5.55); RED CELL DISTRIBUTION WIDTH 19.1 % (11.5-14.0); WHITE BLOOD COUNT 14.5 10^3/uL (4.0-10.5)
[2020-08-21 12:36] LABS: ALBUMIN 3.7 g/dL (3.5-5.0); ALKALINE PHOSPHATASE 135 U/L (38-126); ANION GAP 12 (5-19); ASPARTATE AMINO TRANSFERASE 44 U/L (17-59); BILIRUBIN,DIRECT 0.5 mg/dL (0.0-0.4); BILIRUBIN,TOTAL 1.6 mg/dL (0.2-1.3); BLOOD UREA NITROGEN 21 mg/dL (7-20); CALCIUM 8.7 mg/dL (8.4-10.2); CARBON DIOXIDE 21 mmol/L (22-30); CHLORIDE 101 mmol/L (98-107); GLUCOSE 126 mg/dL (75-110); POTASSIUM 4.2 mmol/L (3.6-5.0); TOTAL PROTEIN 8.1 g/dL (6.3-8.2)
[2020-08-21 12:53] LABS: ABSOLUTE LYMPHOCYTES# (MANUAL) 1.9 10^3/uL (0.5-4.7); ABSOLUTE MONOCYTES # (MANUAL) 0.6 10^3/uL (0.1-1.4); BASOPHILS % (MANUAL) 0 % (0-2); EOSINOPHILS % (MANUAL) 0 % (0-6); LYMPHOCYTES % (MANUAL) 13 % (13-45); MONOCYTES % (MANUAL) 4 % (3-13); SEGMENTED NEUTROPHILS % (MAN) 83 % (42-78); TOTAL CELLS COUNTED 100
[2020-08-21 12:54] LABS: ANISOCYTOSIS 2+; HYPOCHROMASIA SLIGHT; PLATELET COMMENT ADEQUATE
[2020-08-21] MEDS ORDERED: NORMAL SALINE 1000 ML 1,000 ML IV ONE (14:50)
[2020-08-21 16:14] VITALS: BP 112/66
== END 2020-08-21 16:14 | disposition home or self-care (01) ==
LOC: ER 10:21
DX: J18.9 Pneumonia, unspecified organism (principal); E86.0 Dehydration; J44.9 Chronic obstructive pulmonary disease, unspecified; D63.8 Anemia in other chronic diseases classified elsewhere; R07.9 Chest pain, unspecified; R05 Cough; R50.9 Fever, unspecified; R07.81 Pleurodynia; R53.1 Weakness; R00.0 Tachycardia, unspecified; Z20.828 Contact with and (suspected) exposure to other viral communicable diseases; Z88.0 Allergy status to penicillin; Z79.899 Other long term (current) drug therapy; Z87.891 Personal history of nicotine dependence
CPT/HCPCS: 93005; 99285; 96361; 96375; 96365; 36415; 87040; 83690; 83735; 85025; 80053; 84484; 71045; 93010; U0003; A9270; J7030; J1100; J1956; C9803; 87635

== ENCOUNTER 2020-08-23 08:37 | Emergency (ER) | payer MEDICARE, MEDICAID ==
[2020-08-23 08:45] VITALS: BP 114/68
--- NOTE | 2020-08-23 09:27 | ER Document Report ---
ED General - General Chief Complaint: Cough Stated Complaint: FOLLOW UP/ABNORMAL LABS Time Seen by Provider: 08/23/20 09:04 Primary Care Provider: SAMMI SARABIA MD [Primary Care Provider] - Follow up in 3-5 days TRAVEL OUTSIDE OF THE [place] IN LAST 30 DAYS: No - HPI Notes: Patient is a 59-year-old male who presents for a follow-up. Patient was in the ER 2 days ago and diagnosed with pneumonia. He appeared dehydrated and received fluids. Patient was started on Levaquin. He was told to return to the ER in 2 days to get his blood work rechecked. Patient states "I feel good". He has been taking his antibiotics as prescribed. Patient was also started on steroids due to suspicion for COVID-19. He has been taking this as well. His Covid test returned negative. Patient denies any chest pain or shortness of breath. He still has a slight cough productive of white sputum. He is a smoker. He denies any other symptoms. No fevers or chills. - Related Data Allergies/Adverse Reactions: Penicillins Allergy (Unknown, Verified 08/21/20 10:53) shrimp Allergy (Verified 08/21/20 10:53) strawberry Allergy (Verified 08/21/20 10:53) Home Medications: only med known is steriods Past Medical History - General Information source: Patient - Social History Smoking Status: Current Every Day Smoker Chew tobacco use (# tins/day): No Frequency of alcohol use: None Drug Abuse: None Family History: Reviewed & Not Pertinent - Past Medical History Cardiac Medical History: Denies: Hx Coronary Artery Disease, Hx Heart Attack, Hx Hypertension Pulmonary Medical History: Reports: Hx Asthma, Hx Bronchitis, Hx COPD, Hx Pneumonia - SEVERAL TIMES Neurological Medical History: Denies: Hx Cerebrovascular Accident, Hx Seizures Renal/ Medical History: Denies: Hx Peritoneal Dialysis GI Medical History: Reports: Hx Gastritis Musculoskeletal Medical History: Denies Hx Arthritis Past Surgical History: Reports: Hx Orthopedic Surgery - right hip replacement - Immunizations Immunizations up to date: No Hx Diphtheria, Pertussis, Tetanus Vaccination: Yes Review of Systems - Review of Systems Notes: CONSTITUTIONAL: No fever, fatigue or weight loss. SKIN: No rash. HENT: No congestion, ear pain, or sore throat. EYES: No recent vision problems or eye pain. CARDIOVASCULAR: No chest pain or edema. RESPIRATORY: Positive for slight cough. No shortness of breath. GASTROINTESTINAL: No abdominal pain, nausea, vomiting MUSCULOSKELETAL: No joint pain or swelling. LYMPHATIC: No swollen glands. NEUROLOGIC: No seizures. No headache, focal weakness or sensory changes. PSYCHIATRIC: No depression or anxiety. Physical Exam - Vital signs Vitals: Temp Pulse Resp BP Pulse Ox 97.5 F 90 16 114/68 96 08/23/20 08:43 08/23/20 08:43 08/23/20 08:43 08/23/20 08:43 08/23/20 08:43 - General General appearance: Appears well In distress: None Notes: VITAL SIGNS: Within normal limits. GENERAL: No acute distress, non-toxic appearance. HEAD: Normal with no signs of head trauma. EYES: Conjunctiva normal, no discharge. EARS: Hearing grossly intact. NOSE: Normal. NECK: Normal range of motion, no tenderness, supple, no lymphadenopathy, No adenopathy, no JVD. CHEST: Clear breath sounds bilaterally. No wheezes, rales, or rhonchi. CARDIAC: Regular rate and rhythm. S1 and S2, without murmurs, gallops, or rubs. VASCULAR: No Edema. ABDOMEN: Normal and soft LYMPATHTIC: No lymphadenopathy noted. MUSCULOSKELETAL: Good range of motion of all major joints. Extremities without clubbing, cyanosis or edema. NEUROLOGICAL: Alert and oriented x 3. No focal sensory or strength deficits. Speech normal. Follows commands appropriately. PSYCHIATRIC: Normal Affect, judgement and mood. SKIN: Normal appearance with no rashes or lesions. Course - Re-evaluation Re-evalutation: 08/23/20 09:26 Patient appears well on exam. He states he has no complaints. He is here for follow-up of blood work. From record review, patient had some TANISHA likely due to dehydration and leukocytosis 2 days ago. His chest x-ray showed pneumonia. Patient states he has been doing well on his antibiotics and steroids. He is Covid negative. I will repeat a CBC and CMP. Do not believe he requires a repeat x-ray as it was just performed 2 days ago. I did tell him that he needs to see his PCP after he finishes the antibiotics as the PCP may then want to repeat an x-ray to ensure that the pneumonia has resolved. Patient states he would like to be discharged. His lab work is improved. I discussed all results with the patient. Patient was told to make an appointment with his family doctor. He was given strict return precautions. 08/23/20 18:59 - Vital Signs Vital signs: Temp Pulse Resp BP Pulse Ox 97.5 F 90 16 114/68 96 08/23/20 08:43 08/23/20 08:43 08/23/20 08:43 08/23/20 08:43 08/23/20 08:43 - Laboratory Results Result Diagrams: 08/23/20 09:33 08/23/20 09:33 Laboratory Results Interpreted: 08/23/20 08/23/20 09:33 09:33 WBC 11.7 H RBC 3.44 L Hgb 8.3 L Hct 26.2 L MCV 76 L MCH 24.1 L MCHC 31.7 L RDW 19.9 H Seg Neuts % (Manual) 81 H Lymphocytes % (Manual) 11 L Abs Neuts (Manual) 9.5 H Chloride 110 H Carbon Dioxide 20 L BUN 33 H Alkaline Phosphatase 145 H Albumin 3.4 L Critical Laboratory Results Reviewed: No Critical Results - Radiology Results Critical Radiology Results Reviewed: No Critical Results Discharge - Discharge Clinical Impression: Follow up, Laboratory test Pneumonia Qualifiers: Pneumonia type: due to unspecified organism Laterality: unspecified laterality Lung location: lower lobe of lung Qualified Code(s): J18.9 - Pneumonia, unspecified organism Condition: Stable Disposition: HOME, SELF-CARE Instructions: Pneumonia (OM) Additional Instructions: Your work-up today is reassuring. Your blood work is improved. Please make sure you are staying hydrated and getting rest. Please follow-up with your doctor in about 1 to 2 weeks for repeat chest x-ray. Please return to the ER if you have shortness of breath or any worsening symptoms. Referrals: SAMMI SARABIA MD [Primary Care Provider] - Follow up in 3-5 days
[2020-08-23 09:56] LABS: HEMATOCRIT 26.2 % (37.9-51.0); HEMOGLOBIN 8.3 g/dL (13.5-17.0); MEAN CORPUSCULAR HEMOGLOBIN 24.1 pg (27.0-33.4); MEAN CORPUSCULAR HGB CONC 31.7 g/dL (32.0-36.0); MEAN CORPUSCULAR VOLUME 76 fl (80-97); PLATELET COUNT 194 10^3/uL (150-450); RED BLOOD COUNT 3.44 10^6/uL (4.35-5.55); RED CELL DISTRIBUTION WIDTH 19.9 % (11.5-14.0); WHITE BLOOD COUNT 11.7 10^3/uL (4.0-10.5)
[2020-08-23 10:16] LABS: ALBUMIN 3.4 g/dL (3.5-5.0); ALKALINE PHOSPHATASE 145 U/L (38-126); ANION GAP 8 (5-19); ASPARTATE AMINO TRANSFERASE 50 U/L (17-59); BILIRUBIN,DIRECT 0.2 mg/dL (0.0-0.4); BILIRUBIN,TOTAL 0.3 mg/dL (0.2-1.3); BLOOD UREA NITROGEN 33 mg/dL (7-20); CALCIUM 9.1 mg/dL (8.4-10.2); CARBON DIOXIDE 20 mmol/L (22-30); CHLORIDE 110 mmol/L (98-107); GLUCOSE 108 mg/dL (75-110); POTASSIUM 4.3 mmol/L (3.6-5.0); TOTAL PROTEIN 7.6 g/dL (6.3-8.2)
[2020-08-23 10:19] LABS: ABSOLUTE LYMPHOCYTES# (MANUAL) 1.3 10^3/uL (0.5-4.7); ABSOLUTE MONOCYTES # (MANUAL) 0.9 10^3/uL (0.1-1.4); BASOPHILS % (MANUAL) 0 % (0-2); EOSINOPHILS % (MANUAL) 0 % (0-6); LYMPHOCYTES % (MANUAL) 11 % (13-45); MONOCYTES % (MANUAL) 8 % (3-13); SEGMENTED NEUTROPHILS % (MAN) 81 % (42-78); TOTAL CELLS COUNTED 100
[2020-08-23 10:20] LABS: ANISOCYTOSIS 2+; HYPOCHROMASIA SLIGHT
[2020-08-23 10:21] LABS: PLATELET COMMENT ADEQUATE
== END 2020-08-23 11:05 | disposition home or self-care (01) ==
LOC: ER 08:37
DX: J18.9 Pneumonia, unspecified organism (principal); R05 Cough; F17.200 Nicotine dependence, unspecified, uncomplicated; Z88.0 Allergy status to penicillin
CPT/HCPCS: 36415; 80053; 85025; 99283

== ENCOUNTER → 2020-09-05 | Outpatient (CLI) | payer MEDICARE, MEDICAID ==
[2020-09-05 14:59] LABS: HEMATOCRIT 28.5 % (37.9-51.0); HEMOGLOBIN 8.8 g/dL (13.5-17.0); MEAN CORPUSCULAR HGB CONC 30.9 g/dL (32.0-36.0); MEAN CORPUSCULAR VOLUME 78 fl (80-97); PLATELET COUNT 204 10^3/uL (150-450); RED BLOOD COUNT 3.67 10^6/uL (4.35-5.55); RED CELL DISTRIBUTION WIDTH 20.2 % (11.5-14.0)
[2020-09-05 15:11] LABS: ANION GAP 6 (5-19); BLOOD UREA NITROGEN 12 mg/dL (7-20); CALCIUM 8.9 mg/dL (8.4-10.2); CARBON DIOXIDE 27 mmol/L (22-30); CHLORIDE 105 mmol/L (98-107); GLUCOSE 100 mg/dL (75-110); POTASSIUM 4.9 mmol/L (3.6-5.0)
[2020-09-05 15:24] LABS: ABSOLUTE LYMPHOCYTES# (MANUAL) 1.4 10^3/uL (0.5-4.7); ABSOLUTE MONOCYTES # (MANUAL) 0.6 10^3/uL (0.1-1.4); BASOPHILS % (MANUAL) 1 % (0-2); EOSINOPHILS % (MANUAL) 2 % (0-6); LYMPHOCYTES % (MANUAL) 27 % (13-45); MONOCYTES % (MANUAL) 11 % (3-13); SEGMENTED NEUTROPHILS % (MAN) 59 % (42-78); TOTAL CELLS COUNTED 100
[2020-09-05 15:26] LABS: ANISOCYTOSIS 2+; PLATELET COMMENT ADEQUATE; TARGET CELLS 1+
== END ==
LOC: OD 14:03
PROVIDERS: ATTEND Family Medicine Geriatric Medicine
DX: D64.9 Anemia, unspecified (principal); Z79.899 Other long term (current) drug therapy
CPT/HCPCS: 36415; 80048; 82140; 83735; 85025